=== PATIENT | male | born 1940 | race Caucasian/White ===

== ENCOUNTER 2017-12-23 18:03 | Inpatient (IN) | payer MEDICARE ==
[~2017-12-23 18:03] MED LIST: ETOMIDATE 20 MG/10 ML VIAL IV ONE
[2017-12-23] MEDS ORDERED: ALBUTEROL 2.5 MG/3 ML NEB SOL ONE (18:30)
[2017-12-23] MEDS ORDERED: IPRATROPIUM BROM 0.5MG/2.5ML ONE (18:30)
[2017-12-23 18:40] LABS: Arterial Blood Carboxyhemoglob 0.7 % (0-1.5); Blood Gas Oxyhemoglobin 97.2 % (94-97); Blood O2 Saturation 98.9 % (92-98.5)
[2017-12-23] MEDS ORDERED: NA CHLORIDE 0.9% 1,000 ML ONE ×2 (18:43→19:21)
[2017-12-23] MEDS ORDERED: Levofloxacin 750mg IV 750 MG/150 ML BAG IV ONE (18:43)
[2017-12-23 18:48] LABS: Absolute Lymphocytes (CBC) 2.2 K/uL (0.7-4.9); Absolute Monocytes 0.9 K/uL (0.1-1.3); Basophils % 0.6 % (0-1.3); Eosinophils % 7.4 % (0-4.4); Hematocrit 48.3 % (39.6-49.0); Lymphocytes % 15.4 % (15.3-44.8); MCH 30.2 pg (27.0-35.0); MCV 90.8 fL (80-100); Monocytes % 6.1 % (3.3-12.3); RBC Red Blood Cell Count 5.32 M/uL (4.33-5.43)
[2017-12-23 18:59] LABS: Albumin 3.6 g/dL (3.4-5.0); Bilirubin Direct 0.2 mg/dL (0-0.2); Bilirubin Total 0.9 mg/dL (0.2-1.0); Potassium 4.3 mmol/L (3.5-5.1); Protein, Total 6.8 g/dL (6.4-8.2)
--- NOTE | 2017-12-23 19:07 | ER ---
Nurse's Notes [facility] Name: Raphael Gilbert Age: 77 yrs Sex: Male : 1940 Arrival Date: 12/23/2017 Time: 18:08 Bed 4 Private MD: Diagnosis: Acute and chronic respiratory failure with hypercapnia;Chronic obstructive pulmonary disease with (acute) exacerbation Presentation: 12/23 18:12 Presenting complaint: EMS states: Pt was brought in with difficulty breathing was found jb4 taking albuterol nebulizer treatment. Transition of care: patient was not received from another setting of care. Onset of symptoms was December 23, 2017. Risk Assessment: Do you want to hurt yourself or someone else? Patient reports no desire to harm self or others. Initial Sepsis Screen: Does the patient meet any 2 criteria? RR > 20 per min. HR > 90 bpm. Yes Does the patient have a suspected source of infection? No. Patient's initial sepsis screen is negative. Care prior to arrival: Oxygen administered via non-rebreather \T\ 15ml/min. 18:12 Method Of Arrival: EMS: [facility] jb4 18:12 Acuity: MEGHAN 2 jb4 Triage Assessment: 18:18 General: Appears distressed, uncomfortable, Behavior is calm, cooperative. Pain: Denies jb4 pain. Historical: - Allergies: 18:18 Dilaudid; jb4 - Home Meds: 18:18 Albuterol Inhl [Active]; Atrovent Inhl [Active]; citriziine [Active]; jb4 fluticasone-salmeterol inhalation [Active]; pantoprazole 20 mg Oral TbEC [Active]; Symbicort 160-4.5 mcg/actuation inhalation HFAA [Active]; tamsulosin 0.4 mg Oral cp24 [Active]; - PMHx: 18:18 COPD; Pulmonary Embolism; jb4 - PSHx: 18:18 Appendectomy; blood clot removed from lung; jb4 - Immunization history:: Adult Immunizations unknown. - Social history:: Smoking status: unknown. - Ebola Screening: : No symptoms or risks identified at this time. Screenin:20 Abuse screen: Denies threats or abuse. Nutritional screening: No deficits noted. jb4 Tuberculosis screening: No symptoms or risk factors identified. Fall Risk Secondary diagnosis (15 points) COPD, Emphysema . IV access (20 points). Total Lira Fall Scale indicates Low Risk Score (25-44 pts). Fall prevention measures have been instituted. Side Rails Up X 2 Placed close to Nursing Station Frequent Obs/Assesments occuring. Assessment: 18:12 General: Appears distressed, uncomfortable, Behavior is calm, cooperative, appropriate jb4 for age. 18:12 Pain: Denies pain. Neuro: Level of Consciousness is awake, alert, obeys commands, jb4 Oriented to person, place, time, situation. Cardiovascular: Heart tones S1 S2 present Patient's skin is warm and dry. Respiratory: Airway is patent Respiratory effort is even, labored, Respiratory pattern is symmetrical, tachypnea Breath sounds with wheezes bilaterally. GI: Abdomen is flat, Bowel sounds present X 4 quads. Abd is soft and non tender X 4 quads. : No signs and/or symptoms were reported regarding the genitourinary system. EENT: No signs and/or symptoms were reported regarding the EENT system. Derm: Skin is intact, Skin is pink, warm \T\ dry. Musculoskeletal: No signs and/or symptoms reported regarding the musculoskeletal system. 18:55 Reassessment: No changes from previously documented assessment. jb4 19:09 General: Appears in no apparent distress. uncomfortable, Behavior is calm, cooperative, tl2 appropriate for age. Pain: Denies pain. Neuro: Level of Consciousness is awake, alert, obeys commands, Oriented to person, place, time, situation. Cardiovascular: Denies chest pain. Respiratory: Airway is patent Respiratory effort is even, labored, Respiratory pattern is symmetrical, tachypnea Pt placed on BiPAP, pt states it is helping and he is tolerating it well Breath sounds with wheezes bilaterally. GI: No signs and/or symptoms were reported involving the gastrointestinal system. : No signs and/or symptoms were reported regarding the genitourinary system. Derm: Skin is pink, warm \T\ dry. 19:55 Reassessment: Unknown family member came out of room and stated that pt was having tl2 trouble breathing. LEE Lomax at bedside. Pt in distress, labored breathing, face noted to be a purple color. Respiratory pageLEE wood ordered to prepare for intubation. 20:45 Reassessment: Accompanied pt to CT with Olivia, RT. tl2 21:00 Reassessment: Pt's vitals and color have improved, ordered to start on 5mcg/min of tl2 Propofol. 21:45 Reassessment: LEE Lomax approved for pt to go to ICU, Pt stable for transport. tl2 Vital Signs: 18:20 BP 150 / 103; Pulse 138; Resp 21; Temp 98.5; Pulse Ox 98% on BiPAP; jb4 18:30 Weight 63.5 kg (R); Height 5 ft. 11 in. (180.34 cm) (R); jl7 19:13 BP 140 / 103; Pulse 120; Resp 20; Pulse Ox 100% on BiPAP; tl2 20:00 BP 175 / 112; Pulse 136; Resp 17; Pulse Ox 99% on BiPAP; tl2 20:05 BP 132 / 84; Pulse 120; Resp 12 A; Pulse Ox 100% on 100% FiO2 ETT vent; tl2 20:15 BP 110 / 70; Pulse 115; Resp 12; Pulse Ox 100% on ETT vent; tl2 20:25 BP 152 / 89; Pulse 108; Resp 12; Pulse Ox 100% on ETT vent; tl2 20:55 BP 143 / 79; Pulse 106; Resp 16; Pulse Ox 97% on ETT vent; tl2 21:10 BP 137 / 87; Pulse 103; Resp 14; Pulse Ox 98% on ETT vent; tl2 21:18 BP 147 / 87; Pulse 103; Resp 16; Pulse Ox 40% FiO2 ETT vent; tl2 21:30 BP 136 / 85; Pulse 101; Resp 16; Pulse Ox 98% on ETT vent; tl2 18:30 Body Mass Index 19.53 (63.50 kg, 180.34 cm) jl7 Vitals: 19:09 Cardiac Rhythm Assessment Sinus rhythm. tl2 ED Course: 18:08 Patient arrived in ED. iw 18:09 Dami Frausto PA is PHCP. jr8 18:09 Felix Zayas MD is Attending Physician. jr8 18:10 Initial lab(s) drawn, by ED staff, sent to lab. Inserted saline lock: 18 gauge in right jl7 antecubital area, using aseptic technique. ,using aseptic technique. Inserted by LEE Bradley Blood collected. 18:10 Inserted saline lock: 18 gauge in left antecubital area, using aseptic technique. jl7 ,using aseptic technique. Inserted by LEE Bradley. 18:12 Sid Strickland RN is Primary Nurse. jb4 18:16 Triage completed. jb4 18:20 Patient has correct armband on for positive identification. Placed in gown. Bed in low jb4 position. Call light in reach. Side rails up X 1. house painting instructor on. Pulse ox on. NIBP on. 18:31 Arm band placed on right wrist. jl7 18:48 Chest Single View XRAY In Process Unspecified. EDMS 19:05 Scarlet Wesley MD is Hospitalizing Provider. jr8 19:07 Report given to LAURI Spencer. jb4 20:04 Assisted provider with intubation using 7.5 mm ETT via oral route. ET tube secured at tl2 23cm at the teeth. Set up intubation tray. Intubated by Dami HOWARD Placement verified by CXR, CO2 detector w/ + color change, auscultating bilateral breath sounds. 20:30 NGT: inserted 14 Fr. other Oral verified placement of air over stomach, CT to tl2 intermittent suction. 20:58 CT completed. Patient moved to CT via stretcher. Patient moved back from CT. cw1 21:30 To cath inserted, using sterile technique, 16 Fr., by pa, balloon inflated, to tl2 gravity drainage, urine specimen collected. returned clear yellow urine. Patient tolerated well. 22:20 Patient admitted, IV remains in place. tl2 Administered Medications: 18:15 Drug: Albuterol - atroVENT (3:1) (2.5 mg - 0.5 mg) 3 ml Route: Nebulizer; jl7 18:50 Follow up: Response: No adverse reaction jb4 18:45 Drug: LevaQUIN 750 mg Volume: 150 ml; Route: IVPB; Infused Over: 90 mins; Site: left jb4 antecubital; 19:00 Follow up: IV Status: Completed infusion tl2 20:00 Follow up: IV Status: Completed infusion tl2 19:24 Drug: NS 0.9% (30 ml/kg) 30 ml/kg Route: IV; Rate: bolus; Site: left antecubital; jb4 21:30 Follow up: IV Status: Completed infusion; IV Intake: 3000ml tl2 19:33 Drug: Lovenox 1 mg/kg Route: Sub-Q; Site: right lower abdomen; tl2 22:23 Follow up: Response: No adverse reaction tl2 19:33 Drug: SOLU-Medrol 125 mg Route: IVP; Site: left antecubital; tl2 19:50 Follow up: Response: No adverse reaction; No change in condition tl2 20:00 Drug: Ketamine 200 mg Route: IVP; Site: right antecubital; tl2 20:05 Follow up: Response: No adverse reaction; Patient is sedated tl2 20:02 Drug: Etomidate 20 mg Route: IVP; Site: right antecubital; tl2 20:05 Follow up: Response: No adverse reaction; Patient is sedated tl2 20:02 Drug: Rocuronium 100 mg Route: IVP; Site: right antecubital; tl2 20:05 Follow up: Response: No adverse reaction; Patient is sedated tl2 20:10 Drug: Magnesium Sulfate 4 grams Route: IVPB; Infused Over: 15 mins; Site: left tl2 antecubital; 20:30 Follow up: IV Status: Completed infusion tl2 21:06 Drug: Propofol 5 mcg/kg/min Route: IV; Rate: calculated rate; Site: right antecubital; tl2 22:21 Follow up: IV Status: Infusion continued upon admission tl2 Intake: 21:30 IV: 3000ml; Total: 3000ml. tl2 Outcome: 19:06 Decision to Hospitalize by Provider. jr8 22:19 Admitted to ICU accompanied by nurse, accompanied by tech, via stretcher, room 3, with tl2 oxygen, on monitor, with chart, Report called to LAURI Segovia 22:19 critical 22:19 Discharge instructions given to patient, Instructed on the need for admit. 22:25 Patient left the ED. tl2 Signatures: Dispatcher [employer] EDMS Gogo Kan RN RN iw Woodley, Crystal cw1 Dami Farusto PA PA jr8 Johanna Avalos RN RN tl2 Sid Strickland RN RN jb4 Ty Gresham RN RN jl7 Corrections: (The following items were deleted from the chart) 19:05 18:20 BP 150 / 103; Pulse 138bpm; Resp 21bpm; Pulse Ox 98% BiPAP; jbJefe jb4 19:14 18:12 Initial Sepsis Screen: Does the patient meet any 2 criteria? RR > 20 per min. HR jb4 > 90 bpm. Yes Does the patient have a suspected source of infection? No. Patient's initial sepsis screen is negative. jb4 19:14 19:09 BP 111 / 85; Pulse 90bpm; Resp 19bpm; Pulse Ox 97% RA; tl2 tl2 19:17 19:13 BP 170 / 89; Pulse 97bpm; Resp 22bpm; Pulse Ox 100% Nebulizer Mask; tl2 tl2 22:16 20:30 To cath inserted, using sterile technique, 16 Fr., returned clear yellow tl2 urine. Patient tolerated well. NGT: inserted 14 Fr. other orally verified placement of air over stomach, CT to intermittent suction. tl2
--- NOTE | 2017-12-23 19:07 | EDPHYS ---
Physician Documentation [facility] Name: Raphael Gilbert Age: 77 yrs Sex: Male : 1940 Arrival Date: 12/23/2017 Time: 18:08 Bed 4 Private MD: ED Physician Felix Zayas HPI: 12/23 18:48 This 77 yrs old Male presents to ER via EMS with complaints of Breathing jr8 Difficulty. 18:48 The patient has shortness of breath at rest. Onset: The symptoms/episode began/occurred jr8 acutely, today. Duration: The symptoms are continuous. The patient's shortness of breath is aggravated by talking, walking. Associated signs and symptoms: Pertinent positives: non-productive cough. Severity of symptoms: At their worst the symptoms were moderate in the emergency department the symptoms are unchanged. It is unknown whether or not the patient has had similar symptoms in the past. It is unknown whether or not the patient has recently seen a physician. Historical: - Allergies: 18:18 Dilaudid; jb4 - Home Meds: 18:18 Albuterol Inhl [Active]; Atrovent Inhl [Active]; citriziine [Active]; jb4 fluticasone-salmeterol inhalation [Active]; pantoprazole 20 mg Oral TbEC [Active]; Symbicort 160-4.5 mcg/actuation inhalation HFAA [Active]; tamsulosin 0.4 mg Oral cp24 [Active]; - PMHx: 18:18 COPD; Pulmonary Embolism; jb4 - PSHx: 18:18 Appendectomy; blood clot removed from lung; jb4 - Immunization history:: Adult Immunizations unknown. - Social history:: Smoking status: unknown. - Ebola Screening: : No symptoms or risks identified at this time. ROS: 18:48 Eyes: Negative for injury, pain, redness, and discharge, ENT: Negative for injury, jr8 pain, and discharge, Neck: Negative for injury, pain, and swelling, Cardiovascular: Negative for chest pain, palpitations, and edema, Abdomen/GI: Negative for abdominal pain, nausea, vomiting, diarrhea, and constipation, Back: Negative for injury and pain, MS/Extremity: Negative for injury and deformity, Skin: Negative for injury, rash, and discoloration, Neuro: Negative for headache, weakness, numbness, tingling, and seizure. 18:48 Respiratory: Positive for cough, dyspnea on exertion, shortness of breath, wheezing. Exam: 18:48 Eyes: Pupils equal round and reactive to light, extra-ocular motions intact. Lids and jr8 lashes normal. Conjunctiva and sclera are non-icteric and not injected. Cornea within normal limits. Periorbital areas with no swelling, redness, or edema. ENT: Nares patent. No nasal discharge, no septal abnormalities noted. Tympanic membranes are normal and external auditory canals are clear. Oropharynx with no redness, swelling, or masses, exudates, or evidence of obstruction, uvula midline. Mucous membranes moist. Neck: Trachea midline, no thyromegaly or masses palpated, and no cervical lymphadenopathy. Supple, full range of motion without nuchal rigidity, or vertebral point tenderness. No Meningismus. Abdomen/GI: Soft, non-tender, with normal bowel sounds. No distension or tympany. No guarding or rebound. No evidence of tenderness throughout. Back: No spinal tenderness. No costovertebral tenderness. Full range of motion. Skin: Warm, dry with normal turgor. Normal color with no rashes, no lesions, and no evidence of cellulitis. MS/ Extremity: Pulses equal, no cyanosis. Neurovascular intact. Full, normal range of motion. Neuro: Awake and alert, GCS 15, oriented to person, place, time, and situation. Cranial nerves II-XII grossly intact. Motor strength 5/5 in all extremities. Sensory grossly intact. Cerebellar exam normal. Normal gait. 18:48 Cardiovascular: Rate: tachycardic, Rhythm: regular, Pulses: Pulses are 2+ in right radial artery and left radial artery. Heart sounds: normal, normal S1and S2, no S3 or S4, no murmur, no rub, no gallop, Edema: is not appreciated. 18:48 Respiratory: moderate respiratory distress is noted, Respirations: labored breathing, intercostal retractions, tachypnea, Breath sounds: decreased breath sounds, that are mild, are located in both bases, wheezing: expiratory that is moderate, is heard diffusely. Vital Signs: 18:20 BP 150 / 103; Pulse 138; Resp 21; Temp 98.5; Pulse Ox 98% on BiPAP; jb4 18:30 Weight 63.5 kg (R); Height 5 ft. 11 in. (180.34 cm) (R); jl7 19:13 BP 140 / 103; Pulse 120; Resp 20; Pulse Ox 100% on BiPAP; tl2 20:00 BP 175 / 112; Pulse 136; Resp 17; Pulse Ox 99% on BiPAP; tl2 20:05 BP 132 / 84; Pulse 120; Resp 12 A; Pulse Ox 100% on 100% FiO2 ETT vent; tl2 20:15 BP 110 / 70; Pulse 115; Resp 12; Pulse Ox 100% on ETT vent; tl2 20:25 BP 152 / 89; Pulse 108; Resp 12; Pulse Ox 100% on ETT vent; tl2 20:55 BP 143 / 79; Pulse 106; Resp 16; Pulse Ox 97% on ETT vent; tl2 21:10 BP 137 / 87; Pulse 103; Resp 14; Pulse Ox 98% on ETT vent; tl2 21:18 BP 147 / 87; Pulse 103; Resp 16; Pulse Ox 40% FiO2 ETT vent; tl2 21:30 BP 136 / 85; Pulse 101; Resp 16; Pulse Ox 98% on ETT vent; tl2 18:30 Body Mass Index 19.53 (63.50 kg, 180.34 cm) jl7 MDM: 18:09 Patient medically screened. jr8 19:05 Data reviewed: vital signs, nurses notes, lab test result(s), EKG, radiologic studies, jr8 plain films, and as a result, I will admit patient. Data interpreted: Pulse oximetry: on room air is 79 %. Interpretation: hypoxia. Counseling: I had a detailed discussion with the patient and/or guardian regarding: the historical points, exam findings, and any diagnostic results supporting the discharge/admit diagnosis, lab results, radiology results, the need for further work-up and treatment in the hospital. Response to treatment: the patient's symptoms have markedly improved after treatment. 20:10 ED course: Patient became acutely dyspneic again. Patient was intubated at that time jr8 successfully. Will be going to CT for PE protocol . 20:46 ED course: Advised Dr. Wesley of status change . jr8 12/23 18:10 Order name: ABG; Complete Time: 18:48 jr8 12/23 18:10 Order name: Basic Metabolic Panel; Complete Time: 19:04 jr8 12/23 18:10 Order name: Blood Culture Adult (2) [facility] 12/23 18:10 Order name: CBC with Diff; Complete Time: 18:51 [facility] 12/23 18:10 Order name: Lactate; Complete Time: 19:04 [facility] 12/23 18:10 Order name: LFT's; Complete Time: 19:04 [facility] 12/23 18:10 Order name: Procalcitonin; Complete Time: 19:40 [facility] 12/23 18:10 Order name: Protime (+inr); Complete Time: 19:11 [facility] 12/23 18:10 Order name: Troponin (emerg Dept Use Only); Complete Time: 19:04 [facility] 12/23 18:10 Order name: Chest Single View XRAY; Complete Time: 19:44 [facility] 12/23 18:10 Order name: BIPAP [facility] 12/23 20:22 Order name: ABG [facility] 12/23 21:08 Order name: ABG Arterial Blood Gas; Complete Time: 21:18 [facility] 12/23 22:10 Order name: Urine Dipstick--Ancillary (enter results) [place] 12/23 18:10 Order name: Accucheck; Complete Time: 19:03 [facility] 12/23 18:10 Order name: Cardiac monitoring; Complete Time: 18:57 [facility] 12/23 20:07 Order name: Chest Single View XRAY [place] 12/23 20:08 Order name: CT Chest For PE Angio [facility] 12/23 20:47 Order name: RAD; Complete Time: 20:48 EDMD 12/23 21:17 Order name: CT; Complete Time: 21:18 [facility] 12/23 18:10 Order name: EKG - Nurse/Tech; Complete Time: 18:57 [facility] 12/23 18:10 Order name: IV Saline Lock - Large Bore; Complete Time: 18:57 [facility] 12/23 18:10 Order name: Labs collected and sent; Complete Time: 18:58 [facility] 12/23 18:10 Order name: O2 Per Protocol; Complete Time: 18:58 [facility] 12/23 18:10 Order name: O2 Sat Monitoring; Complete Time: 18:57 [facility] 12/23 18:10 Order name: Urine Dipstick-Ancillary (obtain specimen); Complete Time: 21:30 [facility] Administered Medications: 18:15 Drug: Albuterol - atroVENT (3:1) (2.5 mg - 0.5 mg) 3 ml Route: Nebulizer; jl7 18:50 Follow up: Response: No adverse reaction jb4 18:45 Drug: LevaQUIN 750 mg Volume: 150 ml; Route: IVPB; Infused Over: 90 mins; Site: left jb4 antecubital; 19:00 Follow up: IV Status: Completed infusion tl2 20:00 Follow up: IV Status: Completed infusion tl2 19:24 Drug: NS 0.9% (30 ml/kg) 30 ml/kg Route: IV; Rate: bolus; Site: left antecubital; jb4 21:30 Follow up: IV Status: Completed infusion; IV Intake: 3000ml tl2 19:33 Drug: Lovenox 1 mg/kg Route: Sub-Q; Site: right lower abdomen; tl2 22:23 Follow up: Response: No adverse reaction tl2 19:33 Drug: SOLU-Medrol 125 mg Route: IVP; Site: left antecubital; tl2 19:50 Follow up: Response: No adverse reaction; No change in condition tl2 20:00 Drug: Ketamine 200 mg Route: IVP; Site: right antecubital; tl2 20:05 Follow up: Response: No adverse reaction; Patient is sedated tl2 20:02 Drug: Etomidate 20 mg Route: IVP; Site: right antecubital; tl2 20:05 Follow up: Response: No adverse reaction; Patient is sedated tl2 20:02 Drug: Rocuronium 100 mg Route: IVP; Site: right antecubital; tl2 20:05 Follow up: Response: No adverse reaction; Patient is sedated tl2 20:10 Drug: Magnesium Sulfate 4 grams Route: IVPB; Infused Over: 15 mins; Site: left tl2 antecubital; 20:30 Follow up: IV Status: Completed infusion tl2 21:06 Drug: Propofol 5 mcg/kg/min Route: IV; Rate: calculated rate; Site: right antecubital; tl2 22:21 Follow up: IV Status: Infusion continued upon admission tl2 Disposition: 20:47 Critical Care:. jr8 12/24 09:22 Co-signature as Attending Physician, Felix Zayas MD I agree with the assessment and kristofer plan of care. Disposition: 12/23/17 19:06 Hospitalization ordered by Scarlet Wesley for Inpatient Admission. Preliminary diagnosis are Acute and chronic respiratory failure with hypercapnia, Chronic obstructive pulmonary disease with (acute) exacerbation. - Bed requested for Intensive Care Unit. - Status is Inpatient Admission. tl2 - Condition is Fair. - Problem is new. - Symptoms have improved. UTI on Admission? No Critical care time excluding procedures: 12/23 20:47 Critical care time: Bedside Care: 30 minutes, Consultation: 15 minutes, Family jr8 Intervention: 10 minutes. Total time: 55 minutes Addendum: 12/26/2017 06:52 Addendum: Patient was intubated with 7.5 ET tube successfully on first attempt. Glyde j r8 Scope utilized. Tube secure with device at 23 cm at the lip. Equal breath sounds bilaterally post intubation with color change on capnography. X-ray shows proper tube placement . Signatures: Dispatcher [employer] EDFelix Mauro MD MD cha Roszak, Josh, PA PA jr8 Mary Beth Hinojosa RN RN cg Johanna Avalos RN RN tl2 Sid Strickland RN RN jb4 Ty Gresham RN RN jl7 Corrections: (The following items were deleted from the chart) 12/23 20:08 19:06 Hospitalization Ordered by Scarlet Wesley MD for Inpatient Admission. Preliminary jr8 diagnosis is Acute and chronic respiratory failure with hypercapnia; Chronic obstructive pulmonary disease with (acute) exacerbation. Bed requested for Telemetry/MedSurg (Inpatient). Status is Inpatient Admission. Condition is Fair. Problem is new. Symptoms have improved. UTI on Admission? No. jr8 20:28 20:08 12/23/2017 19:06 Hospitalization Ordered by Scarlet Wesley MD for Inpatient cg Admission. Preliminary diagnosis is Acute and chronic respiratory failure with hypercapnia; Chronic obstructive pulmonary disease with (acute) exacerbation. Bed requested for Intensive Care Unit. Status is Inpatient Admission. Condition is Fair. Problem is new. Symptoms have improved. UTI on Admission? No. jr8 22:25 20:28 12/23/2017 19:06 Hospitalization Ordered by Scarlet Wesley MD for Inpatient tl2 Admission. Preliminary diagnosis is Acute and chronic respiratory failure with hypercapnia; Chronic obstructive pulmonary disease with (acute) exacerbation. Bed requested for Intensive Care Unit. Status is Inpatient Admission. Condition is Fair. Problem is new. Symptoms have improved. UTI on Admission? No. cg
[2017-12-23 19:10] LABS: Protime INR 1.1
[2017-12-23] MEDS ORDERED: METHYLPREDNISOLONE 125 MG INJ ONE (19:34)
[2017-12-23] MEDS ORDERED: ENOXAPARIN 60 MG/0.6 ML SQ ONE (19:34)
--- NOTE | 2017-12-23 19:41 | RAD REPORT ---
EXAM DESCRIPTION: RAD - Chest Single View - 12/23/2017 6:49 pm CLINICAL HISTORY: Cough, dyspnea COMPARISON: July 2017 TECHNIQUE: AP portable chest image was obtained 1827 hours . FINDINGS: Fibrotic lung changes are present throughout the lung deng. Prominent bullous emphysema changes in the bilateral upper lung deng. Apical scarring changes are present. There is costophreni c angle blunting present left greater than right. Heart size is normal. Pulmonary arteries are enlarg ed. No pneumothorax or large pleural effusion. No gross bony abnormality seen. No acute aortic findin gs suspected. IMPRESSION: Severe COPD not clearly different from comparison. Severity of disease could easily mask a superimposed infiltrate.
[2017-12-23] MEDS ORDERED: LEVALBUTEROL 1.25 MG/3 ML NEB ONE (19:52)
[2017-12-23] MEDS ORDERED: PROPOFOL 1,000 MG/100 ML VIAL IV ONE (19:57)
[2017-12-23] MEDS ORDERED: ACETAMINOPHEN 500 MG TAB PO PRN (19:58)
[2017-12-23] MEDS ORDERED: ONDANSETRON 4 MG/2 ML VIAL IV PRN (19:58)
[2017-12-23] MEDS ORDERED: ALPRAZOLAM 0.25 MG TABLET PO PRN (19:58)
[2017-12-23] MEDS ORDERED: ROCURONIUM 50 MG/5 ML VIAL IV ONE ×2 (20:00→20:03)
[2017-12-23] MEDS ORDERED: KETAMINE HCL 500 MG/5 ML VIAL ONE (20:01)
[2017-12-23] MEDS ORDERED: ETOMIDATE 20 MG/10 ML VIAL IV ONE (20:03)
[2017-12-23] MEDS ORDERED: Magnesium Sulfate 2gm IVPB 4 G/100 ML BAG IV ONE (20:10)
[2017-12-23] MEDS ORDERED: PROPOFOL 1,000 MG/100 ML VIAL IV PRN (20:12)
[2017-12-23] MEDS ORDERED: LORazepam 2 MG/ML VIAL ONE (20:19)
[2017-12-23] MEDS ORDERED: FENTANYL CITR 100 MCG/2 ML ONE (20:19)
[2017-12-23 20:31] LABS: Arterial Blood Carboxyhemoglob 0.3 % (0-1.5); Blood Gas Oxyhemoglobin 97.7 % (94-97)
--- NOTE | 2017-12-23 20:46 | RAD REPORT ---
EXAM DESCRIPTION: RAD - Chest Single View - 12/23/2017 8:31 pm CLINICAL HISTORY: Respiratory distress, intubation COMPARISON: December 23 TECHNIQUE: AP portable chest image was obtained 2007 hour . FINDINGS: Endotracheal tube has been placed. Tip is T4 level top of the aortic arch. Extensive COPD changes are again noted. Lung parenchyma has not changed over the short interval. Hear t and vasculature are normal. No measurable pleural effusion and no pneumothorax. No gross bony abnor mality seen. No acute aortic findings suspected. IMPRESSION: Endotracheal tube in good position. Severe COPD.
[2017-12-23] MEDS ORDERED: CEFTRIAXONE 1 GM/NS 50 ML 1 GM/50 ML BAG IV SCH (21:00)
--- NOTE | 2017-12-23 21:17 | RAD REPORT ---
EXAM DESCRIPTION: CT - Chest For Pe Angio - 12/23/2017 8:58 pm CLINICAL HISTORY: Dyspnea, COPD, intubation COMPARISON: CT August 2016, chest films same date, CT July 2017 TECHNIQUE: Dynamically enhanced 3 mm thick images of the chest were obtained during administration o f approximately 150mL Isovue 370 IV contrast. Coronal and oblique MIP reconstruction images were gene rated and reviewed. Exam utilizes a protocol to evaluate the pulmonary arterial tree. All CT scans are performed using dose optimization technique as appropriate and may include automated exposure control or mA/KV adjustment according to patient size. FINDINGS: No pulmonary emboli are identified. The aorta as imaged shows no acute or suspicious finding. No pericardial thickening or effusion. No peripheral mass or consolidation. Patient has irregular scarring in the right apex that is not dariel walter changed. Severe COPD changes are present. 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 Lung parenchyma is not substantially different from comparison. No pleural effusion or pleur al thickening. No mediastinal or hilar suspicious masses. No chest wall masses or abnormal axillary lymphadenopathy. Endotracheal tube is in good position. NG tube extends into the stomach. Bronchial wall thickening is seen. There are areas of bronchial opacification in both lower lung fiel ds. No significant or measurable bronchiectasis. IMPRESSION: No pulmonary emboli identified. Lower lobe bronchial wall thickening and opacification of the bronchi a likely bronchitis/ viral infi ltrate process. Severe COPD similar to comparison.
[2017-12-23] MEDS: IPRATROPIUM BROM 0.5MG/2.5ML NEB SCH (22:01)
[2017-12-23] MEDS: ALBUTEROL 2.5 MG/3 ML NEB SOL NEB SCH (22:01)
[2017-12-23] MEDS: NA CHLORIDE 0.9% 1,000 ML IV SCH (22:14)
[2017-12-23] MEDS ORDERED: CEFTRIAXONE/SWI 1gm 1 GM/10 ML SYR ONE (22:24)
[2017-12-23] MEDS ORDERED: AZITHROMYCIN IV 500 MG in NA CHLORIDE 0.9% 250 ML IVPB SCH (23:00)
[2017-12-23 23:21] LABS: Urine Appearance CLEAR; Urine Bilirubin NEGATIVE (NEG); Urine Blood 1+ (NEG); Urine Color YELLOW; Urine Glucose NEGATIVE (NEG); Urine Protein NEGATIVE (NEG); Urine Urobilinogen 0.2 mg/dL (0.2-1.0); Urine pH 5.5 (5.0-7.0)
[2017-12-23 23:23] LABS: Urine Microscopic Reflex ORDER UMIC
[2017-12-23 23:32] LABS: Urine Bacteria <20 /HPF (NONE SEEN); Urine Culture Reflex Order NOT NEEDED
[2017-12-23 23:33] LABS: Urine Blood 1+ (NEG); Urine Glucose NEGATIVE (NEG); Urine Protein NEGATIVE (NEG); Urine pH 5.5 (5.0-7.0)
[2017-12-24] MEDS: METHYLPREDNISOLONE 125 MG INJ IV SCH ×2 (00:06→05:41)
[2017-12-24] MEDS ORDERED: AZITHROMYCIN 500 MG/250 ML BAG ONE (00:57)
[2017-12-24] MEDS: ALBUTEROL 2.5 MG/3 ML NEB SOL NEB SCH ×4 (01:39→20:24)
[2017-12-24] MEDS: IPRATROPIUM BROM 0.5MG/2.5ML NEB SCH ×4 (01:39→20:24)
[2017-12-24 05:29] LABS: Absolute Lymphocytes (CBC) 0.5 K/uL (0.7-4.9); Absolute Monocytes 0.1 K/uL (0.1-1.3); Absolute Neutrophil 13.4 K/uL (1.8-8.0); Basophils % 0.2 % (0-1.3); Eosinophils % 0.1 % (0-4.4); Hematocrit 42.5 % (39.6-49.0); Lymphocytes % 3.5 % (15.3-44.8); MCH 30.4 pg (27.0-35.0); MPV 8.9 fL (7.6-11.3); Monocytes % 0.6 % (3.3-12.3); RBC Red Blood Cell Count 4.72 M/uL (4.33-5.43)
[2017-12-24 05:32] LABS: Blood Gas Oxyhemoglobin 96.7 % (94-97); Blood O2 Saturation 98.4 % (92-98.5)
[2017-12-24 05:46] LABS: Bilirubin Total 0.6 mg/dL (0.2-1.0); Magnesium 2.4 mg/dL (1.8-2.4); Phosphorus 2.6 mg/dL (2.5-4.9); Potassium 4.8 mmol/L (3.5-5.1); Protein, Total 5.9 g/dL (6.4-8.2)
[2017-12-24] MEDS ORDERED: clonazePAM 0.5 MG TAB PO PRN (06:08)
[2017-12-24 06:16] LABS: Blood Morphology Comment NOTED (NOT SEEN); Burr Cells 1+; Ovalocytes 2+; Platelet Estimate ADEQ
--- NOTE | 2017-12-24 07:50 | EKG ---
Test Date: 2017-12-23 Test Time: 18:14:55 Photographer Lithographic: SUSAN MEASUREMENT RESULTS: Intervals: Rate: 140 NM: 124 QRSD: 88 QT: 286 QTc: 436 [place]coe: P: 85 NM: 124 QRS: 37 T: 62 INTERPRETIVE STATEMENTS: Sinus tachycardia Otherwise normal ECG Compared to ECG 07/17/2017 18:32:20 Sinus rhythm no longer present Atrial premature complex(es) no longer present Electronically Signed On 12-24-17 07:49:54 CDT by Jamil Will
[2017-12-24] MEDS ORDERED: FENTANYL CITR 100 MCG/2 ML IV PRN (07:56)
[2017-12-24] MEDS ORDERED: LORazepam 2 MG/ML VIAL IV PRN (07:56)
[2017-12-24] MEDS ORDERED: MIDAZOLAM HCL 2 MG/2 ML INJ IV PRN (07:56)
[2017-12-24] MEDS ORDERED: HALOPERIDOL LACT 5 MG/ML INJ IV PRN (07:56)
--- NOTE | 2017-12-24 08:18 | P.HP ---
Certification for Inpatient Patient admitted to: Inpatient With expected LOS: >2 Midnights Patient will require the following post-hospital care: None Practitioner: I am a practitioner with admitting privileges, knowledge of patient current condition, hospital course, and medical plan of care. Services: Services provided to patient in accordance with Admission requirements found in Title 42 Section 412.3 of the Code of Federal Regulations Patient History Date of Service: 12/23/17 Reason for admission: Respiratory failure History of Present Illness: Patient is a 77-year-old gentleman who came into the hospital with difficulty breathing. Patient was seen in the emergency room and started on treatment for a COPD exacerbation. Patient was given nebs, steroids, and antibiotics. Patient was not improving so he was placed on BiPA P. After being placed on BiPAP his current addition worsened and he became more hypercapnic. At that time it was decided the patient needed to be intubated. Patient was placed on mechanical ventilation and we started him on propofol. Patient will be admitted to the intensive care unit will consult Pulmonary in the morning. Clinically, patient is improving. 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 There is also a concern of pulmonary embolism for which we did a CT of the chest which did not reveal a pulmonary emboli. Patient will be managed on the mechanical ventilator and we will go ahead and wean him off over the next 24-48 hours. Continue on nebs, steroids, and antibiotics. Allergies hydromorphone HCl [From Dilaudid] Adverse Reaction (Severe, Verified 06/17/17 21 :47) Itching Home Medications: Acetaminophen with Codeine [Acetaminophen-Cod #3 Tablet] 1 each PO Q8HP PRN Albuterol Sulfate [Proair Hfa] 2 puff IH Q6HP PRN 12/23/17 Cefadroxil Hydrate [Duricef] 500 mg PO BID 12/23/17 Diphenhydramine [Benadryl Tab/Cap] 25 mg PO BEDTIME PRN PRN 12/23/17 Doxycycline Hyclate 100 mg PO Q12H 12/23/17 Fluticasone [Flonase 50mcg Nasal [place]] 1 sprays NS BID 12/23/17 Ipratropium/Albuterol Sulfate [Iprat-Albut 0.5-3(2.5) mg/3 ml] 3 ml IH QID 12/23 Levocetirizine Dihydrochloride [24Hr Allergy Relief] 5 mg PO BEDTIME 12/23/17 Montelukast [Singulair] 10 mg PO DAILY 12/23/17 Pantoprazole [Protonix Tab] 40 mg PO DAILY 12/23/17 Q-Tussin Dm 10-100mg/5ml 5 ml PO Q6HP PRN 12/23/17 Tamsulosin [Flomax] 0.4 mg PO BID 12/23/17 Vardenafil HCl [Levitra] 20 mg PO DAILYPRN PRN 12/23/17 clonazePAM [Clonazepam] 0.5 mg PO BIDP PRN 12/23/17 - Past Medical/Surgical History Diabetic: No -: Allergic rhinitis -: COPD -: PE -: gerd -: prostate problems -: Rib surgery -: appendectomy -: blood clot removed from lung - Family History Father Medical History: GI disease Mother Medical History: Heart disease Sister Medical History: Heart disease - Social History Smoking Status: Unknown if ever smoked Alcohol use: No CD- Drugs: No Caffeine use: Yes Place of Residence: Home Review of Systems 10-point ROS is otherwise unremarkable Physical Examination - Vital Signs Temperature: 98.5 F Blood Pressure: 98/64 Pulse: 96 Respirations: 16 Pulse Ox (%): 93 - Physical Exam General: Alert, In no apparent distress, Oriented x3 HEENT: Atraumatic, Normocephalic Neck: Supple, 2+ carotid pulse no bruit, JVD not distended, No Thyromegaly, No LAD Respiratory: Clear to auscultation bilaterally, Normal air movement Cardiovascular: Normal pulses, Regular rate/rhythm, Normal S1 S2, No murmurs Gastrointestinal: Normal bowel sounds, Hypoactive, Soft and benign, Non- distended, No ascites Musculoskeletal: No clubbing, No swelling, No contractures Integumentary: No rashes Neurological: Normal gait, Normal speech, Normal strength at 5/5 x4 extr, Normal tone, Sensation intact, Cranial nerves 3-12 intact, Normal reflexes 2+ Lymphatics: No axilla or inguinal lymphadenopathy - Studies Laboratory Data (last 24 hrs) 12/23/17 18:05: PT 13.0 H, INR 1.10 12/23/17 18:05: WBC 14.2 H, Hgb 16.1, Hct 48.3, Plt Count 285 12/23/17 18:05: Sodium 140, Potassium 4.3, BUN 16, Creatinine 0.90, Glucose 103 , Total Bilirubin 0.9, AST 18, ALT 22, Alkaline Phosphatase 105 Assessment & Plan - Problems (Diagnosis) (1) Respiratory failure Current Visit: Yes Status: Acute (2) Atelectasis Current Visit: No Status: Acute (3) Severe chronic obstructive pulmonary disease Current Visit: No Status: Acute (4) Congestive heart failure Current Visit: No Status: Chronic Qualifiers: - Plan Plan: -nebs, steroids, and antibiotics -O2 per protocol. -Pulmonary consultation -Ventilator suort; change vent settings in the morning -repeat chest x-ray -pulmonary consultation -DVT prophylaxis Discharge Plan: Home Plan to discharge in: Greater than 2 days - Advance Directives Does patient have a Living Will: No Does patient have a Durable POA for Healthcare: No - Code Status/Comfort Care Code Status Assessed: Yes Code Status: Full Code Critical Care: Yes Time Spent Managing PTS Care (In Minutes): 60
[2017-12-24] MEDS ORDERED: FAMOTIDINE 20 MG/2 ML VIAL IV SCH (09:00)
[2017-12-24] MEDS: TAMSULOSIN 0.4 MG SR CAP PO SCH ×2 (09:00→21:41)
[2017-12-24] MEDS: ENOXAPARIN 40 MG/0.4 ML SQ SCH (09:46)
[2017-12-24] MEDS: NA CHLORIDE 0.9% 1,000 ML IV SCH ×2 (09:48→18:10)
[2017-12-24] MEDS: CEFTRIAXONE/SWI 1gm 1 GM/10 ML SYR IV SCH ×2 (09:51→21:42)
[2017-12-24] MEDS ORDERED: ROCURONIUM 50 MG/5 ML VIAL IV ONE (10:32)
[2017-12-24] MEDS ORDERED: RSI MEDICATION KIT IV ONE (10:32)
[2017-12-24] MEDS ORDERED: MIDAZOLAM HCL 2 MG/2 ML INJ ONE (10:32)
--- NOTE | 2017-12-24 12:06 | P.CNS ---
Date of Consult: 12/24/17 Reason for Consult: respiratory failure Chief Complaint: Respiratory failure History of Present Illness: Patient is 77 years of age well known to me with terminal COPD admitted from the emergency room with shortness of breath he got worse after BiPAP in place became hypercapnic respiratory distress was intubated transferred here to the ICU is currently doing well he is alert responsive cooperative wants to be extubated there was no evidence of pulmonary emboli. Patient is hemodynamically stable Allergies hydromorphone HCl [From Dilaudid] Adverse Reaction (Severe, Verified 06/17/17 21 :47) Itching Home Medications: Acetaminophen with Codeine [Acetaminophen-Cod #3 Tablet] 1 each PO Q8HP PRN Albuterol Sulfate [Proair Hfa] 2 puff IH Q6HP PRN 12/23/17 Cefadroxil Hydrate [Duricef] 500 mg PO BID 12/23/17 Diphenhydramine [Benadryl Tab/Cap] 25 mg PO BEDTIME PRN PRN 12/23/17 Doxycycline Hyclate 100 mg PO Q12H 12/23/17 Fluticasone [Flonase 50mcg Nasal [place]] 1 sprays NS BID 12/23/17 Ipratropium/Albuterol Sulfate [Iprat-Albut 0.5-3(2.5) mg/3 ml] 3 ml IH QID 12/23 Levocetirizine Dihydrochloride [24Hr Allergy Relief] 5 mg PO BEDTIME 12/23/17 Montelukast [Singulair] 10 mg PO DAILY 12/23/17 Pantoprazole [Protonix Tab] 40 mg PO DAILY 12/23/17 Q-Tussin Dm 10-100mg/5ml 5 ml PO Q6HP PRN 12/23/17 Tamsulosin [Flomax] 0.4 mg PO BID 12/23/17 Vardenafil HCl [Levitra] 20 mg PO DAILYPRN PRN 12/23/17 clonazePAM [Clonazepam] 0.5 mg PO BIDP PRN 12/23/17 - Past Medical/Surgical History Diabetic: No -: Allergic rhinitis -: COPD -: PE -: gerd -: prostate problems -: Rib surgery -: appendectomy -: blood clot removed from lung - Family History Father Medical History: GI disease Mother Medical History: Heart disease Sister Medical History: Heart disease - Social History Smoking Status: Unknown if ever smoked Alcohol use: No CD- Drugs: No Caffeine use: Yes Place of Residence: Home Review of Systems is unable to be obtained Physical Examination Temp Pulse Resp BP Pulse Ox 98.5 F 96 H 16 98/64 93 12/24/17 08:18 12/24/17 08:18 12/24/17 08:18 12/24/17 08:18 12/24/17 08:18 General: Alert, Cooperative Neck: Supple Respiratory: Diminished, Expiratory wheezes Cardiovascular: No edema, Normal S1 S2 Gastrointestinal: Normal bowel sounds Laboratory Data (last 24 hrs) 12/23/17 18:05: PT 13.0 H, INR 1.10 12/23/17 18:05: WBC 14.2 H, Hgb 16.1, Hct 48.3, Plt Count 285 12/23/17 18:05: Sodium 140, Potassium 4.3, BUN 16, Creatinine 0.90, Glucose 103 , Total Bilirubin 0.9, AST 18, ALT 22, Alkaline Phosphatase 105 - Problems (1) Acute and chronic respiratory failure Onset Date: 06/18/17 Current Visit: No Status: Acute Plan: Patient is 77 years of age admitted with acute on chronic respiratory failure he has terminal COPD currently he is doing well there is no evidence of pneumonia or thromboembolism chronic right upper lobe changes patient was hypoxic mildly hypercapnic on admission plan to wean off and extubate continue with bronchodilator therapy labs reviewed cultures pending he has terminal COPD may require BiPAP Solu-Medrol dose has been reduced continue with albuterol and ipratropium schedules Dc Zithromax continue with Rocephin sputum culture Qualifiers: Respiratory failure complication: hypoxia Qualified Code(s): J96.21 - Acute and chronic respiratory failure with hypoxia
--- NOTE | 2017-12-24 14:42 | P.PN ---
Subjective Date of Service: 12/24/17 Primary Care Provider: Unknown; Pulmonary-Dr. Michelle Chief Complaint: Respiratory failure Subjective: Other (Patient intubated and sedated.) Physical Examination - Vital Signs Temperature: 98.5 F Blood Pressure: 124/84 Pulse: 99 Respirations: 15 Pulse Ox (%): 96 - Physical Exam General: Other (Patient intubated and sedated.) HEENT: Atraumatic Neck: Supple Respiratory: Clear to auscultation bilaterally, Normal air movement Cardiovascular: Normal pulses, Regular rate/rhythm Gastrointestinal: Normal bowel sounds, Soft and benign, Non-distended, No masses Neurological: Other (Patient intubated and sedated.) - Studies Laboratory Data (last 24 hrs) 12/23/17 18:05: PT 13.0 H, INR 1.10 12/23/17 18:05: WBC 14.2 H, Hgb 16.1, Hct 48.3, Plt Count 285 12/23/17 18:05: Sodium 140, Potassium 4.3, BUN 16, Creatinine 0.90, Glucose 103 , Total Bilirubin 0.9, AST 18, ALT 22, Alkaline Phosphatase 105 Medications List Reviewed: Yes Assessment & Plan - Problems (Diagnosis) (1) COPD (chronic obstructive pulmonary disease) Current Visit: No Status: Acute Plan: Patient with severe COPD requiring oxygen at home. Patient currently intubated and sedated. Pulmonology has evaluated patient. Plan is to extubate patient today. Patient may require skilled placement at discharge. Will need to reassess again tomorrow. Will need discuss with family. Patient has end-stage COPD. Will need to Re discuss advanced directives as well. Qualifiers: COPD type: COPD with acute exacerbation Qualified Code(s): J44.1 - Chronic obstructive pulmonary disease with (acute) exacerbation (2) BPH (benign prostatic hyperplasia) Current Visit: No Status: Chronic Plan: Continue with medication Qualifiers: Lower urinary tract symptom presence: unspecified whether lower urinary tract symptoms present Qualified Code(s): N40.0 - Benign prostatic hyperplasia without lower urinary tract symptoms (3) GERD (gastroesophageal reflux disease) Current Visit: No Status: Chronic Plan: Continue with medication Qualifiers: Esophagitis presence: esophagitis presence not specified Qualified Code(s) : K21.9 - Gastro-esophageal reflux disease without esophagitis (4) Acute and chronic respiratory failure Onset Date: 06/18/17 Current Visit: No Status: Acute Plan: Patient currently intubated and sedated. Plan is to extubate later today. Patient will continue with antibiotic therapy and COPD treatment. Will discuss with pulmonology about plan of care. Patient has end-stage COPD. He requires home oxygen. Patient may benefit with skilled placement at discharge. Will need to Re discuss advanced directives. Qualifiers: Respiratory failure complication: hypoxia and hypercapnia Qualified Code(s) : J96.21 - Acute and chronic respiratory failure with hypoxia; J96.22 - Acute and chronic respiratory failure with hypercapnia Discharge Plan: Other (Home verses skilled placement) Plan to discharge in: Greater than 2 days Time Spent Managing Pts Care (In Minutes): 55
[2017-12-24] MEDS ORDERED: PANTOPRAZOLE 40MG TABLET PO ONE (17:28)
[2017-12-24] MEDS: METHYLPREDNISOLONE 40 MG INJ IV SCH (18:00)
[2017-12-24] MEDS ORDERED: PANTOPRAZOLE 40MG TABLET PO SCH (18:00)
[2017-12-25] MEDS: METHYLPREDNISOLONE 40 MG INJ IV SCH (00:26)
[2017-12-25] MEDS: ALBUTEROL 2.5 MG/3 ML NEB SOL NEB SCH ×2 (01:32→07:30)
[2017-12-25] MEDS: IPRATROPIUM BROM 0.5MG/2.5ML NEB SCH ×2 (01:32→07:30)
[2017-12-25 05:41] LABS: Absolute Lymphocytes (CBC) 0.4 K/uL (0.7-4.9); Absolute Monocytes 0.5 K/uL (0.1-1.3); Absolute Neutrophil 13.4 K/uL (1.8-8.0); Hematocrit 39.7 % (39.6-49.0); MCH 30.3 pg (27.0-35.0); MCV 89.9 fL (80-100); MPV 9.1 fL (7.6-11.3); Monocytes % 3.4 % (3.3-12.3); RBC Red Blood Cell Count 4.41 M/uL (4.33-5.43)
[2017-12-25 06:06] LABS: BUN Blood Urea Nitrogen 17 mg/dL (7-18); Bicarbonate 27 mmol/L (21-32); Glucose Level 150 mg/dL (74-106); Magnesium 2.4 mg/dL (1.8-2.4); Potassium 3.8 mmol/L (3.5-5.1); Sodium Level 146 mmol/L (136-145)
[2017-12-25] MEDS ORDERED: POTASSIUM CL SA 10 MEQ TAB PO ONE (07:00)
[2017-12-25 07:29] VITALS: BMI 18.0
[2017-12-25] MEDS ORDERED: PANTOPRAZOLE 40MG TABLET PO SCH (07:30)
[2017-12-25] MEDS ORDERED: ALBUTEROL 2.5 MG/3 ML NEB SOL NEB PRN (08:19)
[2017-12-25] MEDS ORDERED: IPRATROPIUM BROM 0.5MG/2.5ML NEB PRN (08:19)
--- NOTE | 2017-12-25 08:19 | P.PN ---
Subjective Date of Service: 12/25/17 Primary Care Provider: Unknown; Pulmonary-Dr. Michelle Chief Complaint: Respiratory failure Subjective: Doing well (Patient is doing better today. Patient still requiring oxygen. Patient has been up and moving around. Patient desires to go home at discharge. Patient to be weaned off oxygen.) Physical Examination - Vital Signs Temperature: 97.2 F Blood Pressure: 127/74 Pulse: 100 Respirations: 18 Pulse Ox (%): 97 - Physical Exam General: Alert, In no apparent distress, Oriented x3, Cooperative HEENT: Atraumatic Neck: Supple Respiratory: Expiratory wheezes (Bilateral but improved aeration bilaterally.), Other (Barrel chest) Cardiovascular: Normal pulses, Regular rate/rhythm Gastrointestinal: Normal bowel sounds, Soft and benign, Non-distended, No tenderness, No masses, No rebound, No guarding Musculoskeletal: No erythema, No tenderness, No warmth Integumentary: No tenderness/swelling, No erythema, No warmth, No cyanosis Neurological: Normal speech, Normal strength at 5/5 x4 extr, Normal tone, Normal affect - Studies Medications List Reviewed: Yes Assessment & Plan - Problems (Diagnosis) (1) COPD (chronic obstructive pulmonary disease) Current Visit: No Status: Acute Plan: Patient with severe COPD. Patient recovering well. Patient prefers to go home without oxygen. Will try to wean him off oxygen today. Will have physical therapy ambulate. Will recheck chest x-ray today. Will reassess this afternoon. If doing well later possible discharge as early as today in the afternoon or tomorrow. Qualifiers: COPD type: COPD with acute exacerbation Qualified Code(s): J44.1 - Chronic obstructive pulmonary disease with (acute) exacerbation (2) BPH (benign prostatic hyperplasia) Current Visit: No Status: Chronic Plan: Continue with medication Qualifiers: Lower urinary tract symptom presence: unspecified whether lower urinary tract symptoms present Qualified Code(s): N40.0 - Benign prostatic hyperplasia without lower urinary tract symptoms (3) GERD (gastroesophageal reflux disease) Current Visit: No Status: Chronic Plan: Continue with medication Qualifiers: Esophagitis presence: esophagitis presence not specified Qualified Code(s) : K21.9 - Gastro-esophageal reflux disease without esophagitis (4) Acute and chronic respiratory failure Onset Date: 06/18/17 Current Visit: No Status: Acute Plan: Patient doing well currently on oxygen. Will continue to wean off oxygen. Patient will likely require oxygen at discharge. Will ambulate. Will recheck chest x-ray today. Possible later discharge or tomorrow. Qualifiers: Respiratory failure complication: hypoxia and hypercapnia Qualified Code(s) : J96.21 - Acute and chronic respiratory failure with hypoxia; J96.22 - Acute and chronic respiratory failure with hypercapnia (5) Hypernatremia Current Visit: Yes Status: Acute Plan: Patient taking good oral intake well. Will Dc IV fluids. Will monitor closely. (6) Pneumonia Current Visit: Yes Status: Suspected Plan: Will adjust IV antibiotic therapy to oral Levaquin. Will recheck chest x-ray today. Wean off oxygen. Qualifiers: Pneumonia type: due to unspecified organism Laterality: bilateral Lung location: lower lobe of lung Qualified Code(s): J18.1 - Lobar pneumonia, unspecified organism Discharge Plan: Home Plan to discharge in: 24 Hours Time Spent Managing Pts Care (In Minutes): 55
[2017-12-25] MEDS: ENOXAPARIN 40 MG/0.4 ML SQ SCH (08:40)
[2017-12-25] MEDS: TAMSULOSIN 0.4 MG SR CAP PO SCH (08:40)
--- NOTE | 2017-12-25 08:41 | RAD REPORT ---
EXAM DESCRIPTION: RAD - Chest Single View - 12/25/2017 6:54 am CLINICAL HISTORY: Follow up COPD Chest pain. COMPARISON: Chest Single View dated 12/23/2017; Chest Single View dated 12/23/2017; Chest Single View dated 07/17/2017; Chest Single View dated 06/17/2017; Chest For Pe Angio dated 12/23/2017 FINDINGS: Portable technique limits examination quality. Since the most recent comparative study, the patient has been extubated. Prominent COPD pattern is no yinka. Blunting of left costophrenic angle is noted, likely chronic. The heart is normal in size. No di splaced fractures. IMPRESSION: Advanced COPD.
[2017-12-25] MEDS ORDERED: predniSONE 20 MG TAB PO SCH (09:00)
[2017-12-25] MEDS ORDERED: levoFLOXacin 500 MG TAB PO SCH (09:00)
[2017-12-25 12:44] VITALS: O2SAT 97
--- NOTE | 2017-12-25 14:26 | P.DS ---
Admission Date: 12/23/17 Discharge Date: 12/25/17 Primary Care Provider: Dr. Cervantes; Pulmonary-Dr. Michelle Disposition: DC HOME/HOME HEALTH CARE Discharge Condition: GOOD Reason for Admission: Respiratory failure Consultations: Pulmonary-Dr. Michelle Procedures: CT scan: FINDINGS: No pulmonary emboli are identified. The aorta as imaged shows no acute or suspicious finding. No pericardial thickening or effusion. No peripheral mass or consolidation. Patient has irregular scarring in the right apex that is not clearly changed. Severe COPD changes are present. 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 Lung parenchyma is not substantially different from comparison. No pleural effusion or pleural thickening. No mediastinal or hilar suspicious masses. No chest wall masses or abnormal axillary lymphadenopathy. Endotracheal tube is in good position. NG tube extends into the stomach. Bronchial wall thickening is seen. There are areas of bronchial opacification in both lower lung deng. No significant or measurable bronchiectasis. IMPRESSION: No pulmonary emboli identified. Lower lobe bronchial wall thickening and opacification of the bronchi a likely bronchitis/ viral infiltrate process. Severe COPD similar to comparison. - Problems (1) COPD (chronic obstructive pulmonary disease) Current Visit: No Status: Acute Qualifiers: COPD type: COPD with acute exacerbation Qualified Code(s): J44.1 - Chronic obstructive pulmonary disease with (acute) exacerbation (2) BPH (benign prostatic hyperplasia) Current Visit: No Status: Chronic Qualifiers: Lower urinary tract symptom presence: unspecified whether lower urinary tract symptoms present Qualified Code(s): N40.0 - Benign prostatic hyperplasia without lower urinary tract symptoms (3) GERD (gastroesophageal reflux disease) Current Visit: No Status: Chronic Qualifiers: Esophagitis presence: esophagitis presence not specified Qualified Code(s) : K21.9 - Gastro-esophageal reflux disease without esophagitis (4) Acute and chronic respiratory failure Onset Date: 06/18/17 Current Visit: No Status: Acute Qualifiers: Respiratory failure complication: hypoxia and hypercapnia Qualified Code(s) : J96.21 - Acute and chronic respiratory failure with hypoxia; J96.22 - Acute and chronic respiratory failure with hypercapnia (5) Hypernatremia Current Visit: Yes Status: Acute (6) Pneumonia Current Visit: Yes Status: Suspected Qualifiers: Pneumonia type: due to unspecified organism Laterality: bilateral Lung location: lower lobe of lung Qualified Code(s): J18.1 - Lobar pneumonia, unspecified organism (7) Seasonal allergic rhinitis Current Visit: Yes Status: Chronic Qualifiers: Allergic rhinitis trigger: unspecified Qualified Code(s): J30.2 - Other seasonal allergic rhinitis Brief History of Present Illness: 77 yo CM presented to the ER with shortness of breath. He has history of severe COPD. He was seen in the ER and found to have acute with chronic respiratory failure. He was initially on BIPAP but did not improve. He was eventually intubated and placed to the ICU. Hospital Course: The patient presented with shortness of breath. Patient found to have acute on chronic respiratory failure with COPD exacerbation. Patient was intubated and sent to the ICU. Patient was eventually extubated. Patient seen by pulmonology. CT scan showed no pulmonary embolism. CT scan revealed severe COPD with bronchial wall thickening to the lower lobes. Infectious process was suspected. Patient started on antibiotic therapy. The patient was able to wean off oxygen. At discharge he did not require any oxygen. Patient now back to baseline. At discharge patient will continue with prednisone 20 mg 1 pill twice daily for 5 days then 1 pill once daily for 5 days. Patient will continue with COPD treatment including Spiriva 1 puff daily and Symbicort 2 puffs twice daily. Patient will also continue with albuterol 2 puffs 3 times a day as needed for shortness of breath. For suspected pneumonia patient will continue with Levaquin 500 mg 1 pill daily for 7 days. Recommendation is for repeat chest x-ray in 2-4 weeks to monitor resolution. Recommendations for the patient to follow up with pulmonology in 1-2 weeks to follow up this hospitalization and continue his care. Patient will need to limit his activities due to severe COPD. Patient has GERD. Patient will continue with Protonix 40 mg 1 pill once daily. Patient has BPH. Patient will continue with Flomax 0.4 mg 1 pill once daily. Patient has seasonal allergies. Patient may continue with antihistamine and Singulair 1 pill daily. Vital Signs/Physical Exam: Temp Pulse Resp BP Pulse Ox 98.2 F 79 18 152/67 H 97 12/25/17 12:00 12/25/17 12:00 12/25/17 12:00 12/25/17 12:00 12/25/17 12:00 General: Alert, In no apparent distress, Oriented x3, Cooperative HEENT: Atraumatic Neck: Supple Respiratory: Expiratory wheezes (but improve air movement. ) Cardiovascular: Normal pulses, Regular rate/rhythm Gastrointestinal: Normal bowel sounds, Soft and benign, Non-distended, No tenderness, No masses, No rebound, No guarding Musculoskeletal: No erythema, No tenderness, No warmth Integumentary: No tenderness/swelling, No erythema, No warmth, No cyanosis Neurological: Normal speech, Normal strength at 5/5 x4 extr, Normal tone, Normal affect Laboratory Data at Discharge: WBC 14.3 K/uL (4.3-10.9) H 12/25/17 04:25 Hgb 13.3 g/dL (13.6-17.9) L 12/25/17 04:25 Hct 39.7 % (39.6-49.0) 12/25/17 04:25 Plt Count 244 K/uL (152-406) 12/25/17 04:25 PT 13.0 SECONDS (9.5-12.5) H 12/23/17 18:05 INR 1.10 12/23/17 18:05 Sodium 146 mmol/L (136-145) H 12/25/17 04:25 Potassium 3.8 mmol/L (3.5-5.1) 12/25/17 04:25 BUN 17 mg/dL (7-18) 12/25/17 04:25 Creatinine 0.80 mg/dL (0.55-1.3) 12/25/17 04:25 Glucose 150 mg/dL (74-106) H 12/25/17 04:25 Phosphorus 2.6 mg/dL (2.5-4.9) 12/24/17 05:07 Magnesium 2.4 mg/dL (1.8-2.4) 12/25/17 04:25 Total Bilirubin 0.6 mg/dL (0.2-1.0) 12/24/17 05:07 AST 19 U/L (15-37) 12/24/17 05:07 ALT 20 U/L (12-78) 12/24/17 05:07 Alkaline Phosphatase 95 U/L (45-117) 12/24/17 05:07 Home Medications: Acetaminophen with Codeine [Acetaminophen-Cod #3 Tablet] 1 each PO Q8HP PRN Fluticasone [Flonase 50MCG Nasal [place]*] 1 sprays NS BID 12/23/17 Levocetirizine Dihydrochloride [24Hr Allergy Relief] 5 mg PO BEDTIME 12/23/17 Montelukast [Singulair*] 10 mg PO DAILY 12/23/17 Pantoprazole [Protonix Tab*] 40 mg PO DAILY 12/23/17 Tamsulosin [Flomax*] 0.4 mg PO BID 12/23/17 Vardenafil HCl [Levitra] 20 mg PO DAILYPRN PRN 12/23/17 clonazePAM [Clonazepam] 0.5 mg PO BIDP PRN 12/23/17 Albuterol Sulfate [Proair Hfa] 2 puff IH Q6HP PRN #1 hfa.aer.ad 12/25/17 Budesonide/Formoterol Fumarate [Symbicort 160-4.5 Mcg Inhaler] 2 puff IH BID #1 hfa.aer.ad 12/25/17 Tiotropium [place] [Spiriva] 1 spray IH DAILY #1 cap.w.dev 12/25/17 levoFLOXacin [Levaquin*] 500 mg PO DAILY #7 tab 12/25/17 predniSONE [Prednisone*] 20 mg PO SEECOM #15 tab 12/25/17 New Medications: Albuterol Sulfate [Proair Hfa] 2 puff IH Q6HP PRN #1 hfa.aer.ad PRN Reason: wheezing Budesonide/Formoterol Fumarate [Symbicort 160-4.5 Mcg Inhaler] 2 puff IH BID #1 hfa.aer.ad levoFLOXacin [Levaquin*] 500 mg PO DAILY #7 tab predniSONE [Prednisone*] 20 mg PO SEECOM #15 tab Tiotropium [place] [Spiriva] 1 spray IH DAILY #1 cap.w.dev Patient Discharge Instructions: 1. Patient will need a follow up with his PCP in 1 week to follow up this hospitalization. 2. Patient presented with shortness of breath. Patient found to have acute on chronic respiratory failure with COPD exacerbation. Patient was intubated and sent to the ICU. Patient was eventually extubated. Patient seen by pulmonology. CT scan showed no pulmonary embolism. CT scan revealed severe COPD with bronchial wall thickening to the lower lobes. Infectious process was suspected. Patient started on antibiotic therapy. The patient was able to wean off oxygen. At discharge he did not require any oxygen. Patient now back to baseline. At discharge patient will continue with prednisone 20 mg 1 pill twice daily for 5 days then 1 pill once daily for 5 days. Patient will continue with COPD treatment including Spiriva 1 puff daily and Symbicort 2 puffs twice daily. Patient will also continue with albuterol 2 puffs 3 times a day as needed for shortness of breath. For suspected pneumonia patient will continue with Levaquin 500 mg 1 pill daily for 7 days. Recommendation is for repeat chest x- ray in 2-4 weeks to monitor resolution. Recommendations for the patient to follow up with pulmonology in 1-2 weeks to follow up this hospitalization and continue his care. Patient will need to limit his activities due to severe COPD. 3. Patient has GERD. Patient will continue with Protonix 40 mg 1 pill once daily. 4. Patient has BPH. Patient will continue with Flomax 0.4 mg 1 pill once daily. 5. Patient has seasonal allergies. Patient may continue with antihistamine and Singulair 1 pill daily. Diet: AHA Activity: Fall precautions Time spent managing pt's care (in minutes): 55
[2017-12-25 18:37] VITALS: BP 165/84; TEMP 98.5
[2017-12-25] MEDS ORDERED: ARFORMOTEROL TARTRATE 15 MCG/2 ML VIAL.NEB NEB SCH (20:00)
== END 2017-12-25 17:00 | disposition home health service (06) | DRG 208 ==
LOC: ER 18:03 → ERHOLD 19:18 → 3RD-ICU 20:53 → 2ND 12-24 18:21
PROVIDERS: ADMIT Hospitalist; ATTEND Family Medicine
PROC: 0BH18EZ Insertion of Endotracheal Airway into Trachea, Via Natural or Artificial Opening Endoscopic (ICD-10-PCS; principal; 2017-12-23)
PROC: 5A1935Z Respiratory Ventilation, Less than 24 Consecutive Hours (ICD-10-PCS; 2017-12-23)
PROC: 5A09357 Assistance with Respiratory Ventilation, Less than 24 Consecutive Hours, Continuous Positive Airway Pressure (ICD-10-PCS; 2017-12-23)
DX: J96.22 Acute and chronic respiratory failure with hypercapnia (principal); J18.9 Pneumonia, unspecified organism; J44.1 Chronic obstructive pulmonary disease with (acute) exacerbation; E87.0 Hyperosmolality and hypernatremia; J44.0 Chronic obstructive pulmonary disease with (acute) lower respiratory infection; Z88.5 Allergy status to narcotic agent; I50.9 Heart failure, unspecified; K21.9 Gastro-esophageal reflux disease without esophagitis; Z86.711 Personal history of pulmonary embolism; J96.21 Acute and chronic respiratory failure with hypoxia; N40.0 Benign prostatic hyperplasia without lower urinary tract symptoms; J30.2 Other seasonal allergic rhinitis
CPT/HCPCS: 31500; 36415; 51702; 71045; 71275; 80048; 80053; 80076; 81003; 81015; 82805; 83605; 83735; 84100; 84145; 84484; 85025; 85610; 87040; 87070; 87205; 93005; 94002; 94003; 94640; 94660; 96372; 97163; 99285; J0456; J0696; J1650; J2250; J2920; J2930; J3010; J3475; J7030; J7512; Q9967

== ENCOUNTER 2018-03-28 16:53 | Inpatient (IN) | payer MEDICARE ==
[2018-03-28] MEDS ORDERED: METHYLPREDNISOLONE 125 MG INJ ONE (17:13)
[2018-03-28] MEDS ORDERED: LEVALBUTEROL 1.25 MG/3 ML NEB ONE (17:14)
[2018-03-28] MEDS ORDERED: Levofloxacin 750mg IV 750 MG/150 ML BAG IV ONE (17:14)
[2018-03-28] MEDS ORDERED: IPRATROPIUM BROM 0.5MG/2.5ML ONE (17:14)
[2018-03-28 17:48] LABS: Absolute Lymphocytes (CBC) 2.1 K/uL (0.7-4.9); Absolute Neutrophil 7.1 K/uL (1.8-8.0); Basophils % 0.6 % (0-1.3); Hematocrit 45.1 % (39.6-49.0); Lymphocytes % 18.9 % (15.3-44.8); MCH 31.4 pg (27.0-35.0); MCV 91.5 fL (80-100); MPV 9.6 fL (7.6-11.3); Monocytes % 8.7 % (3.3-12.3); RBC Red Blood Cell Count 4.92 M/uL (4.33-5.43)
[2018-03-28 17:51] LABS: ALT/SGPT 21 U/L (12-78); AST/SGOT 19 U/L (15-37); Albumin 3.5 g/dL (3.4-5.0); Alkaline Phosphatase 93 U/L (45-117); Bilirubin Direct 0.3 mg/dL (0-0.2); Bilirubin Total 0.9 mg/dL (0.2-1.0); CKMB Creatine Kinase MB 2.2 ng/mL (0.3-3.6); Creatine Phosphokinase 58 U/L (39-308); Lipase 113 U/L (73-393); NT PRO-BNP 97 pg/mL (<450); Protein, Total 6.8 g/dL (6.4-8.2); Troponin I < 0.02 ng/mL (0.0-0.045)
[2018-03-28 17:53] LABS: Protime INR 1.12
--- NOTE | 2018-03-28 18:44 | ER ---
Nurse's Notes [facility] Name: Raphael Gilbert Age: 77 yrs Sex: Male : 1940 Arrival Date: 03/28/2018 Time: 16:54 Bed 4 Private MD: Diagnosis: Chronic obstructive pulmonary disease with (acute) exacerbation Presentation: 03/28 16:57 Presenting complaint: EMS states: DIFFICULTY BREATHING FOR THREE DAYS. Transition of bp care: patient was not received from another setting of care. Onset of symptoms was March 25, 2018. Risk Assessment: Do you want to hurt yourself or someone else? Patient reports no desire to harm self or others. Initial Sepsis Screen: Does the patient meet any 2 criteria? RR > 20 per min. HR > 90 bpm. No. Patient's initial sepsis screen is negative. Does the patient have a suspected source of infection? Yes: Productive cough/pneumonia. Care prior to arrival: Medication(s) given: Albuterol Neb x 1, Atrovent Neb x 1. 16:57 Method Of Arrival: EMS: [facility] bp 16:57 Acuity: MEGHAN 2 bp Triage Assessment: 16:57 General: Appears distressed, comfortable, slender, Behavior is cooperative, appropriate bp for age, anxious. Pain: Denies pain. EENT: No deficits noted. Neuro: Level of Consciousness is awake, alert, obeys commands, Oriented to person, place, time, situation, Appropriate for age. Cardiovascular: Rhythm is sinus tachycardia. Respiratory: Reports shortness of breath at rest air hunger Breath sounds with wheezes bilaterally. Onset: The symptoms/episode began/occurred 3 DAYS AGO, the patient has moderate shortness of breath. GI: No signs and/or symptoms were reported involving the gastrointestinal system. : No signs and/or symptoms were reported regarding the genitourinary system. Derm: No deficits noted. Musculoskeletal: Circulation, motion, and sensation intact. Range of motion: intact in all extremities. Historical: - Allergies: 17:30 No Known Allergies; bp - Home Meds: 17:30 None [Active]; bp - PMHx: 17:30 Hypertension; bp - Immunization history:: Adult Immunizations up to date. - Social history:: Patient/guardian denies using alcohol, street drugs, The patient lives with family, Smoking status: Patient uses tobacco products, denies chronic smoking, but will smoke occasionally. - Family history:: not pertinent. - Ebola Screening: : Patient negative for fever greater than or equal to 101.5 degrees Fahrenheit, and additional compatible Ebola Virus Disease symptoms Patient denies exposure to infectious person Patient denies travel to an Ebola-affected area in the 21 days before illness onset No symptoms or risks identified at this time. Screenin:00 Abuse screen: Denies threats or abuse. Denies injuries from another. Nutritional bp screening: No deficits noted. Tuberculosis screening: No symptoms or risk factors identified. Fall Risk No fall in past 12 months (0 pts). No secondary diagnosis (0 pts). No IV (0 pts). Ambulatory Aid- None/Bed Rest/Nurse Assist (0 pts). Gait- Normal/Bed Rest/Wheelchair (0 pts) Mental Status- Oriented to own ability (0 pts). Total Lira Fall Scale indicates No Risk (0-24 pts). Assessment: 17:00 General: SEE TRIAGE NOTE. bp 18:00 Pain: Denies pain. Neuro: Level of Consciousness is awake, alert, obeys commands, bp Oriented to person, place, time, situation, Appropriate for age. Cardiovascular: Rhythm is sinus tachycardia. Respiratory: Airway is patent Respiratory effort is even, labored, Respiratory pattern is regular, tachypnea. GI: No signs and/or symptoms were reported involving the gastrointestinal system. : No signs and/or symptoms were reported regarding the genitourinary system. EENT: No deficits noted. Derm: No deficits noted. Musculoskeletal: Circulation, motion, and sensation intact. Range of motion: intact in all extremities. 18:58 Reassessment: ALL CURRENT ORDERS COMPLETED, CPAP IN PLACE, ADMIT IN PROCESS. bp 19:12 Reassessment: Patient appears in no apparent distress at this time. Patient and/or jd3 family updated on plan of care and expected duration. Pain level reassessed. Patient is alert, oriented x 3, equal unlabored respirations, skin warm/dry/pink. awaiting bed assignment. Vital Signs: 16:57 BP 155 / 117; Pulse 132; Resp 32; Temp 97; Pulse Ox 97% on R/A; Weight 58.97 kg; Height bp 5 ft. 11 in. (180.34 cm); 17:27 BP 123 / 93; Pulse 125; Resp 27; Pulse Ox 99% ; bp 18:58 BP 119 / 88; Pulse 119; Resp 17; Pulse Ox 98% ; bp 19:13 BP 114 / 99; Pulse 117; Resp 18 S; Pulse Ox 97% on R/A; jd3 16:57 Body Mass Index 18.13 (58.97 kg, 180.34 cm) bp ED Course: 16:54 Patient arrived in ED. ds1 16:54 Scarlet Benjamin MD is Attending Physician. ma2 16:57 Murphy Yoon, RN is Primary Nurse. bp 16:57 Arm band placed on. bp 16:58 Triage completed. bp 17:00 Inserted saline lock: 20 gauge in right antecubital area, using aseptic technique. bp Blood collected. 17:00 Patient has correct armband on for positive identification. Placed in gown. Bed in low bp position. Call light in reach. Side rails up X2. Adult w/ patient. 17:10 EKG done, by ED staff, reviewed by Scarlet Benjamin MD. jb1 18:42 Davey Rowe MD is Referral Physician. ma2 18:42 Scarlet Wesley MD is Referral Physician. ma2 18:42 Referral Physician role handed off by Davey Rowe MD ma2 18:45 Scarlet Wesley MD is Hospitalizing Provider. ma2 19:43 No provider procedures requiring assistance completed. Patient admitted, IV remains in jd3 place. Administered Medications: 17:05 Drug: SOLU-Medrol 125 mg Route: IVP; Site: right forearm; bp 17:51 Follow up: Response: No adverse reaction bp 17:05 Drug: Xopenex 1.25 mg Route: Inhalation; bp 19:53 Follow up: Response: No adverse reaction jd3 17:05 Drug: AtroVENT Aerosol 0.5 mg Route: Inhalation; bp 19:52 Follow up: Response: No adverse reaction jd3 17:05 Drug: LevaQUIN 750 mg Volume: 150 ml; Route: IVPB; Infused Over: 90 mins; Site: right bp forearm; 19:52 Follow up: Response: No adverse reaction; IV Status: Completed infusion jd3 Outcome: 18:43 Discharge ordered by . ma2 18:46 Decision to Hospitalize by Provider. ma2 19:49 Admitted to Med/surg accompanied by tech, via stretcher, room 208, with oxygen, with jd3 chart, Report called to Regine CARREON 19:49 Condition: stable 19:49 Instructed on the need for admit, Demonstrated understanding of instructions. 20:35 Patient left the ED. jd3 Signatures: Adalberto Shaikh jb1 Pilar Pabon ds1 Barak Frances RN RN jd3 Murphy Yoon RN RN bp Scarlet Benjamin MD MD ma2 Corrections: (The following items were deleted from the chart) 17:21 17:20 EKG done, by ED staff, reviewed by Scarlet wellington jb1 17:30 16:57 Allergies: Dilaudid [Inactive]; ma2 bp 17:30 16:57 Home Meds: pantoprazole 20 mg Oral TbEC [Inactive]; tn2 17:30 16:57 Home Meds: citriziine [Inactive]; tn2 17:30 16:57 Home Meds: fluticasone-salmeterol inhalation [Inactive]; tn2 17:30 16:57 Home Meds: Symbicort 160-4.5 mcg/actuation inhalation HFAA [Inactive]; tn2 bp 17:30 16:57 Home Meds: Albuterol Inhl [Inactive]; tn2 bp 17:30 16:57 Home Meds: tamsulosin 0.4 mg Oral cp24 [Inactive]; tn2 17:30 16:57 Home Meds: Atrovent Inhl [Inactive]; tn2 bp
--- NOTE | 2018-03-28 18:44 | EDPHYS ---
Physician Documentation [facility] Name: Raphael Gilbert Age: 77 yrs Sex: Male : 1940 Arrival Date: 03/28/2018 Time: 16:54 Bed 4 Private MD: ED Physician Scarlet Benjamin HPI: 03/28 16:56 This 77 yrs old Male presents to ER via Unassigned with complaints of ma2 Shortness Of Breath. 16:56 The patient has shortness of breath at rest. Onset: The symptoms/episode began/occurred ma2 gradually, 1 day(s) ago. Duration: The symptoms are continuous. Associated signs and symptoms: Pertinent positives: productive cough, Pertinent negatives: chest pain, diaphoresis, dizziness, loss of consciousness, nausea, visual changes, vomiting. Severity of symptoms: At their worst the symptoms were severe in the emergency department the symptoms are unchanged. The patient has not experienced similar symptoms in the past. hx of copd. Historical: - Allergies: 17:30 No Known Allergies; bp - Home Meds: 17:30 None [Active]; bp - PMHx: 17:30 Hypertension; bp - Immunization history:: Adult Immunizations up to date. - Social history:: Patient/guardian denies using alcohol, street drugs, The patient lives with family, Smoking status: Patient uses tobacco products, denies chronic smoking, but will smoke occasionally. - Family history:: not pertinent. - Ebola Screening: : Patient negative for fever greater than or equal to 101.5 degrees Fahrenheit, and additional compatible Ebola Virus Disease symptoms Patient denies exposure to infectious person Patient denies travel to an Ebola-affected area in the 21 days before illness onset No symptoms or risks identified at this time. ROS: 16:57 Constitutional: Negative for fever, chills, and weight loss, Cardiovascular: Negative ma2 for chest pain, palpitations, and edema. 16:57 Cardiovascular: Negative for chest pain, orthopnea, paroxysmal nocturnal dyspnea. 16:57 Respiratory: Positive for cough, dyspnea on exertion, Negative for orthopnea, pleurisy, sputum production, acute changes. 16:57 All other systems are negative. Exam: 16:57 Constitutional: This is a well developed, well nourished patient who is awake, alert, ma2 and in no acute distress. Head/Face: Normocephalic, atraumatic. 16:57 ENT: Nares patent. No nasal discharge, no septal abnormalities noted. Tympanic membranes are normal and external auditory canals are clear. Oropharynx with no redness, swelling, or masses, exudates, or evidence of obstruction, uvula midline. Mucous membranes moist. Chest/axilla: Normal chest wall appearance and motion. Nontender with no deformity. No lesions are appreciated. Cardiovascular: Regular rate and rhythm with a normal S1 and S2. No gallops, murmurs, or rubs. Normal PMI, no JVD. No pulse deficits. Abdomen/GI: Soft, non-tender, with normal bowel sounds. No distension or tympany. No guarding or rebound. No evidence of tenderness throughout. MS/ Extremity: Pulses equal, no cyanosis. Neurovascular intact. Full, normal range of motion. Neuro: Awake and alert, GCS 15, oriented to person, place, time, and situation. Cranial nerves II-XII grossly intact. Motor strength 5/5 in all extremities. Sensory grossly intact. Cerebellar exam normal. Normal gait. Psych: Awake, alert, with orientation to person, place and time. Behavior, mood, and affect are within normal limits. 16:57 Constitutional: The patient appears in obvious distress, moderately distressed. 16:57 Respiratory: moderate respiratory distress is noted, Breath sounds: wheezing: expiratory that is moderate, is heard diffusely, Respiratory rate: 30 Vital Signs: 16:57 BP 155 / 117; Pulse 132; Resp 32; Temp 97; Pulse Ox 97% on R/A; Weight 58.97 kg; Height bp 5 ft. 11 in. (180.34 cm); 17:27 BP 123 / 93; Pulse 125; Resp 27; Pulse Ox 99% ; bp 18:58 BP 119 / 88; Pulse 119; Resp 17; Pulse Ox 98% ; bp 19:13 BP 114 / 99; Pulse 117; Resp 18 S; Pulse Ox 97% on R/A; jd3 16:57 Body Mass Index 18.13 (58.97 kg, 180.34 cm) bp MDM: 16:57 Differential diagnosis: Anemia Anxiety Reaction asthma, Bronchitis Chronic Obstructive ma2 Pulmonary Disease pneumonia, Pneumothorax reactive airway disease. Antibiotic administration: The patient is discharged and will get outpatient antibiotics, Levaquin given. The patient's pulmonary embolism risk score was calculated as follows: No Risks (0 Pts). 17:28 Patient medically screened. [facility] 18:40 Data reviewed: vital signs, nurses notes, EMS record, diagnostic data from outside [facility] facility, lab test result(s), EKG, radiologic studies. Counseling: I had a detailed discussion with the patient and/or guardian regarding: the historical points, exam findings, and any diagnostic results supporting the discharge/admit diagnosis, the presence of at least one elevated blood pressure reading (>120/80) during this emergency department visit, radiology results, the need for further work-up and treatment in the hospital. ED course: admit to observation for COPD exacerbation discussed with dr. west . 03/28 16:55 Order name: BIPAP [facility] 03/28 16:55 Order name: XRAY CXR (1 view) [facility] 03/28 17:29 Order name: Liver (Hepatic) Function; Complete Time: 18:06 [facility] 03/28 17:29 Order name: Creatine Phosphokinase; Complete Time: 18:06 [facility] 03/28 17:29 Order name: CKMB Creatine Kinase MB; Complete Time: 18:06 [facility] 03/28 17:29 Order name: Troponin I; Complete Time: 18:06 [facility] 03/28 17:29 Order name: NT PRO-BNP; Complete Time: 18:06 [facility] 03/28 17:29 Order name: Magnesium; Complete Time: 18:06 [facility] 03/28 17:29 Order name: Lipase; Complete Time: 18:06 [facility] 03/28 17:29 Order name: CBC with Automated Diff; Complete Time: 18:06 [facility] 03/28 17:29 Order name: Protime (+INR); Complete Time: 18:06 [facility] 03/28 17:29 Order name: PTT, Activated Partial Thromb; Complete Time: 18:06 [facility] 03/28 17:29 Order name: D-Dimer; Complete Time: 18:06 [facility] 03/28 17:30 Order name: Blood Culture [facility] 03/28 17:30 Order name: Blood Culture [facility] 03/28 17:58 Order name: Influenza Screen (A ; Complete Time: 19:13 [facility] 03/28 16:55 Order name: EKG; Complete Time: 18:15 [facility] 03/28 16:55 Order name: Cardiac monitoring; Complete Time: 17:22 [facility] 03/28 16:55 Order name: EKG - Nurse/Tech; Complete Time: 17: [facility] 03/28 16:55 Order name: IV Saline Lock; Complete Time: : [facility] 03/28 16:55 Order name: Labs collected and sent; Complete Time: 17: [facility] 03/28 16:55 Order name: O2 Per Protocol; Complete Time: 17: [facility] 03/28 16:55 Order name: O2 Sat Monitoring; Complete Time: : [facility] 03/28 19:08 Order name: RAD; Complete Time: 19:13 EDMS Administered Medications: 17:05 Drug: SOLU-Medrol 125 mg Route: IVP; Site: right forearm; bp 17:51 Follow up: Response: No adverse reaction bp 17:05 Drug: Xopenex 1.25 mg Route: Inhalation; bp 19:53 Follow up: Response: No adverse reaction jd3 17:05 Drug: AtroVENT Aerosol 0.5 mg Route: Inhalation; bp 19:52 Follow up: Response: No adverse reaction jd3 17:05 Drug: LevaQUIN 750 mg Volume: 150 ml; Route: IVPB; Infused Over: 90 mins; Site: right bp forearm; 19:52 Follow up: Response: No adverse reaction; IV Status: Completed infusion jd3 Disposition: 03/28/18 18:46 Hospitalization ordered by Scarlet West for Inpatient Admission. Preliminary diagnosis is Chronic obstructive pulmonary disease with (acute) exacerbation. - Bed requested for Telemetry/MedSurg (Inpatient). - Status is Inpatient Admission. jd3 - Condition is Stable. - Problem is an acute exacerbation. - Symptoms have improved. UTI on Admission? No Signatures: Dispatcher [employer] EDMS Gilda Quintanilla RN RN Barak Frances RN RN jd3 Peltier, Brian, RN RN bp Scarlet Benjamin MD MD ri2 Corrections: (The following items were deleted from the chart) 17: 16:57 Allergies: Dilaudid [Inactive]; ma2 bp 17:30 16:57 Home Meds: pantoprazole 20 mg Oral TbEC [Inactive]; ri2 bp 17:30 16:57 Home Meds: citriziine [Inactive]; ma2 bp 17:30 16:57 Home Meds: fluticasone-salmeterol inhalation [Inactive]; ma2 bp 17:30 16:57 Home Meds: Symbicort 160-4.5 mcg/actuation inhalation HFAA [Inactive]; ma2 bp 17:30 16:57 Home Meds: Albuterol Inhl [Inactive]; ma2 bp 17:30 16:57 Home Meds: tamsulosin 0.4 mg Oral cp24 [Inactive]; ma2 bp 17:30 16:57 Home Meds: Atrovent Inhl [Inactive]; ma2 bp 18:34 18:15 Influenza Screen (A \T\ B)+BA.LAB.BRZ ordered. EDMS EDMS 18:36 18:14 BASIC METABOLIC PANEL+C.LAB.BRZ ordered. EDMS EDMS 18:36 18:15 CKMB+C.LAB.BRZ ordered. EDMS EDMS 18:36 18:15 CREATINE PHOSPHOKINASE+C.LAB.BRZ ordered. EDMS EDMS 18:36 18:15 D-DIMER+COAG.LAB.BRZ ordered. EDMS EDMS 18:36 18:15 HEPATIC FUNCTION+C.LAB.BRZ ordered. EDMS EDMS 18:36 18:15 LIPASE+C.LAB.BRZ ordered. EDMS EDMS 18:36 18:15 MAGNESIUM+C.LAB.BRZ ordered. EDMS EDMS 18:36 18:15 PROBNP+C.LAB.BRZ ordered. EDMS EDMS 18:36 18:15 PROTIME (+INR)+COAG.LAB.BRZ ordered. EDMS EDMS 18:36 18:15 PTT, ACTIVATED+COAG.LAB.BRZ ordered. EDMS EDMS 18:36 18:15 TROPONIN (EMERG DEPT USE ONLY)+C.LAB.BRZ ordered. EDMS EDMS 18:37 18:15 CBC+H.LAB.BRZ ordered. EDMS EDMS 18:45 18:43 03/28/2018 18:43 Discharged to Home. Impression: Chronic obstructive pulmonary ma2 disease with (acute) exacerbation. Condition is Fair. Forms are Medication Reconciliation Form, Thank You Letter, Antibiotic Education, Prescription Opioid Use. Follow up: Scarlet West; When: Tomorrow; Reason: Continuance of care. ma2 18:47 18:14 BLOOD CULTURE*+BA.LAB.BRZ ordered. EDMS EDVT 19:30 18:46 Hospitalization Ordered by Scarlet West MD for Inpatient Admission. Preliminary mw diagnosis is Chronic obstructive pulmonary disease with (acute) exacerbation. Bed requested for Telemetry/MedSurg (Inpatient). Status is Inpatient Admission. Condition is Stable. Problem is an acute exacerbation. Symptoms have improved. UTI on Admission? No. ma2 20:35 19:30 03/28/2018 18:46 Hospitalization Ordered by Scarlet West MD for Inpatient jd3 Admission. Preliminary diagnosis is Chronic obstructive pulmonary disease with (acute) exacerbation. Bed requested for Telemetry/MedSurg (Inpatient). Status is Inpatient Admission. Condition is Stable. Problem is an acute exacerbation. Symptoms have improved. UTI on Admission? No. mw
--- NOTE | 2018-03-28 19:07 | RAD REPORT ---
EXAM DESCRIPTION: RAD - Chest Single View - 03/28/2018 6:57 pm CLINICAL HISTORY: CONGESTION Chest pain. COMPARISON: Chest Single View dated 12/25/2017; Chest Single View dated 12/23/2017; Chest Single View dated 12/23/2017; Chest Single View dated 07/17/2017; Chest For Pe Angio dated 12/23/2017 FINDINGS: Portable technique limits examination quality. Advanced COPD is present with irregular scarring in the right apex. Chronic left pleural thickening i s present. The heart is normal in size. No displaced fractures. IMPRESSION: Severe COPD.
[2018-03-28] MEDS ORDERED: ACETAMINOPHEN 500 MG TAB PO PRN (19:13)
[2018-03-28] MEDS ORDERED: MORPHINE 4 MG/ML SYR IV PRN (19:13)
[2018-03-28] MEDS ORDERED: ONDANSETRON 4 MG/2 ML VIAL IV PRN (19:13)
[2018-03-28] MEDS: IPRATROPIUM BROM 0.5MG/2.5ML NEB SCH (20:00)
[2018-03-28] MEDS: ALBUTEROL 2.5 MG/3 ML NEB SOL NEB SCH (20:00)
[2018-03-28] MEDS: NA CHLORIDE 0.9% 1,000 ML IV SCH (21:00)
[2018-03-28 21:14] VITALS: BMI 16.3
[2018-03-28] MEDS: METHYLPREDNISOLONE 125 MG INJ IV SCH (23:16)
[2018-03-28] MEDS: TEMAZEPAM 15 MG CAP PO SCH (23:55)
[2018-03-29 01:00] LABS: Urine Appearance CLEAR; Urine Bilirubin NEGATIVE (NEG); Urine Blood NEGATIVE (NEG); Urine Color YELLOW; Urine Glucose NEGATIVE (NEG); Urine Protein NEGATIVE (NEG); Urine Specific Gravity 1.025 (1.005-1.030); Urine Urobilinogen 0.2 mg/dL (0.2-1.0); Urine pH 5.5 (5.0-7.0)
[2018-03-29 01:12] LABS: Urine Microscopic Reflex NO UMIC
[2018-03-29] MEDS: IPRATROPIUM BROM 0.5MG/2.5ML NEB SCH ×4 (02:01→19:48)
[2018-03-29] MEDS: ALBUTEROL 2.5 MG/3 ML NEB SOL NEB SCH ×4 (02:01→19:47)
[2018-03-29] MEDS: METHYLPREDNISOLONE 125 MG INJ IV SCH ×4 (05:06→23:54)
[2018-03-29 05:16] LABS: Absolute Lymphocytes (CBC) 0.4 K/uL (0.7-4.9); Absolute Neutrophil 4.8 K/uL (1.8-8.0); Basophils % 0.1 % (0-1.3); Eosinophils % 0.1 % (0-4.4); Hematocrit 42.9 % (39.6-49.0); Lymphocytes % 7.6 % (15.3-44.8); MCH 31.4 pg (27.0-35.0); MCV 91.9 fL (80-100); MPV 9.5 fL (7.6-11.3); Monocytes % 0.9 % (3.3-12.3); RBC Red Blood Cell Count 4.67 M/uL (4.33-5.43)
[2018-03-29 05:33] LABS: Albumin 3.3 g/dL (3.4-5.0); Bilirubin Total 0.8 mg/dL (0.2-1.0); Potassium 4.8 mmol/L (3.5-5.1); Protein, Total 6.5 g/dL (6.4-8.2)
--- NOTE | 2018-03-29 06:17 | EKG ---
Test Date: 2018-03-28 Test Time: 17:00:23 First Front Ventilator: BALDOMERO MEASUREMENT RESULTS: Intervals: Rate: 133 FL: 122 QRSD: 76 QT: 310 QTc: 461 [place]: P: 81 FL: 122 QRS: 40 T: 65 INTERPRETIVE STATEMENTS: Sinus tachycardia Right atrial enlargement Borderline ECG Compared to ECG 12/23/2017 18:14:55 Atrial abnormality now present Electronically Signed On 03-29-18 06:17:04 FORMS EXAMINER by Jamil Will
[2018-03-29 06:42] LABS: Blood Morphology Comment NOT SEEN (NOT SEEN); Platelet Estimate ADEQ
--- NOTE | 2018-03-29 08:03 | P.HP ---
Certification for Inpatient Patient admitted to: Inpatient With expected LOS: >2 Midnights Patient will require the following post-hospital care: None Practitioner: I am a practitioner with admitting privileges, knowledge of patient current condition, hospital course, and medical plan of care. Services: Services provided to patient in accordance with Admission requirements found in Title 42 Section 412.3 of the Code of Federal Regulations Patient History Date of Service: 03/28/18 Reason for admission: COPD exacerbation History of Present Illness: Patient is a 77-year-old gentleman who is been in the hospital on numerous occasions with acute COPD exacerbation. His last admission he was intubated. Currently he is on BiPAP. He was brought into the emergency room because he was short of breath. His breathing is been getting worse over the last 3 days. His family called EMS and he was brought into the emergency room. He was started on BiPAP and given nebs, steroids and antibiotics. Clinically he appears to be doing a little better. He remains on BiPAP support. At this time , he will be admitted to the floor for further evaluation. Allergies hydromorphone HCl [From Dilaudid] Adverse Reaction (Severe, Verified 03/28/18 21 :04) Itching Home Medications: Acetaminophen with Codeine [Acetaminophen-Cod #3 Tablet] 1 each PO Q8HP PRN Fluticasone [Flonase 50MCG Nasal [place]*] 1 sprays NS BID 12/23/17 Levocetirizine Dihydrochloride [24Hr Allergy Relief] 5 mg PO BEDTIME 12/23/17 Pantoprazole [Protonix Tab*] 40 mg PO DAILY 12/23/17 Tamsulosin [Flomax*] 0.4 mg PO BID 12/23/17 clonazePAM [Clonazepam] 0.5 mg PO BIDP PRN 12/23/17 Albuterol Sulfate [Proair Hfa] 2 puff IH Q6HP PRN #1 hfa.aer.ad 12/25/17 Budesonide/Formoterol Fumarate [Symbicort 160-4.5 Mcg Inhaler] 2 puff IH BID #1 hfa.aer.ad 12/25/17 Tiotropium [place] [Spiriva] 1 spray IH DAILY #1 cap.w.dev 12/25/17 Ipratropium/Albuterol Sulfate [Iprat-Albut 0.5-3(2.5) mg/3 ml] 1 inh NEB QID PRN 03/28/18 - Past Medical/Surgical History Has patient received pneumonia vaccine in the past: Yes Diabetic: No -: Allergic rhinitis -: COPD -: Pulmonary embolism -: Gastroesophageal reflux disease -: Benign prostatic hypertrophy -: Rib surgery -: appendectomy -: Pulmonary embolectomy - Family History Father Medical History: GI disease Mother Medical History: Heart disease Sister Medical History: Heart disease - Social History Smoking Status: Former smoker Alcohol use: No CD- Drugs: No Caffeine use: Yes Place of Residence: Home Review of Systems 10-point ROS is otherwise unremarkable Physical Examination - Vital Signs Temperature: 97.1 F Blood Pressure: 105/65 Pulse: 100 Respirations: 16 Pulse Ox (%): 94 - Physical Exam General: Alert, In no apparent distress, Oriented x3 HEENT: Atraumatic, PERRLA, Mucous membr. moist/pink, EOMI, Sclerae nonicteric Neck: Supple, 2+ carotid pulse no bruit, No LAD, Without JVD or thyroid abnormality Respiratory: Diminished, Other Cardiovascular: Regular rate/rhythm, Normal S1 S2, Systolic murmur Gastrointestinal: Normal bowel sounds, Soft and benign, Non-distended, No tenderness Musculoskeletal: No swelling, No tenderness Integumentary: No rashes Neurological: Normal tone, Sensation intact, Cranial nerves 3-12 intact, Normal affect, Abnormal gait, Abnormal speech (Because of his respiratory status), Abnormal strength Lymphatics: No axilla or inguinal lymphadenopathy - Studies Laboratory Data (last 24 hrs) 03/28/18 17:15: PT 13.2 H, INR 1.12, APTT 38.9 H 03/28/18 17:15: Magnesium 2.0, Total Bilirubin 0.9, AST 19, ALT 21, Alkaline Phosphatase 93, Troponin I < 0.02, Lipase 113 03/28/18 17:15: WBC 11.3 H, Hgb 15.4, Hct 45.1, Plt Count 274 03/28/18 16:55: PT Cancelled, INR Cancelled, APTT Cancelled 03/28/18 16:55: WBC Cancelled, Hgb Cancelled, Hct Cancelled, Plt Count Cancelled 03/28/18 16:55: Sodium Cancelled, Potassium Cancelled, BUN Cancelled, Creatinine Cancelled, Glucose Cancelled, Magnesium Cancelled, Total Bilirubin Cancelled, AST Cancelled, ALT Cancelled, Alkaline Phosphatase Cancelled, Lipase Cancelled Microbiology Data (last 24 hrs): 03/28/18 17:50 Nasopharnyx Influenza Type A Antigen Screen - Final 03/28/18 17:50 Nasopharnyx Influenza Type B Antigen Screen - Final Assessment & Plan - Problems (Diagnosis) (1) Acute and chronic respiratory failure Onset Date: 06/18/17 Current Visit: No Status: Acute Qualifiers: (2) COPD exacerbation Onset Date: 10/25/15 Current Visit: No Status: Acute (3) BPH (benign prostatic hyperplasia) Current Visit: No Status: Chronic Qualifiers: (4) Congestive heart failure Onset Date: 12/24/17 Current Visit: No Status: Chronic Qualifiers: (5) GERD (gastroesophageal reflux disease) Current Visit: No Status: Chronic Qualifiers: (6) Seasonal allergic rhinitis Current Visit: No Status: Chronic Qualifiers: - Plan Plan: 1. Continue with albuterol and Atrovent nebs 2. Continue with IV steroids 3. BiPAP support 4. Pulmonary consultation 5. Room air O2 sats and check ABGs in the morning 6. Repeat chest x-ray in the morning 7. Additional supportive care as necessary 8. GI and DVT prophylaxis Discharge Plan: Home Plan to discharge in: Greater than 2 days - Advance Directives Does patient have a Living Will: No Does patient have a Durable POA for Healthcare: No - Code Status/Comfort Care Code Status Assessed: Yes Code Status: Full Code Critical Care: No Time Spent Managing PTS Care (In Minutes): 50
[2018-03-29 09:52] LABS: Arterial Blood Carboxyhemoglob 1.3 % (0-1.5); Blood Gas Oxyhemoglobin 94.2 % (94-97); Blood O2 Saturation 95.8 % (92-98.5)
--- NOTE | 2018-03-29 10:20 | RAD REPORT ---
EXAM DESCRIPTION: RAD - Chest Single View - 03/29/2018 6:44 am CLINICAL HISTORY: COPD Chest pain. COMPARISON: Chest Single View dated 03/28/2018; Chest Single View dated 12/25/2017; Chest Single View dated 12/23/2017; Chest Single View dated 12/23/2017 FINDINGS: Portable technique limits examination quality. Prominent emphysematous changes are present throughout the lungs. Linear scarring is present in the l eft base and right apex. The heart is normal in size. No displaced fractures. IMPRESSION: Advanced COPD.
--- NOTE | 2018-03-29 15:13 | P.PN ---
Subjective Date of Service: 03/29/18 Chief Complaint: COPD exacerbation Patient seen and examined at bedside. No family at bedside. Chart reviewed and Case discussed with nursing staff. Patient reports feeling better. No longer on BiPAP, using 2 L oxygen via nasal cannula. States that he does not use oxygen at home even though he does have oxygen at home. His lung doctor is unclear awake. He states he uses some inhalers at home, Symbicort though he is not sure about the names of the inhalers. Review of Systems As noted Physical Examination - Vital Signs Temperature: 97.8 F Blood Pressure: 118/76 Pulse: 107 Respirations: 16 Pulse Ox (%): 95 - Physical Exam General: Alert, In no apparent distress, Oriented x3 HEENT: Atraumatic, PERRLA, EOMI Neck: Supple, JVD not distended Respiratory: Crackles/rales, Expiratory wheezes, Inspiratory wheezes Cardiovascular: Regular rate/rhythm, Normal S1 S2 Gastrointestinal: Normal bowel sounds, No tenderness Musculoskeletal: No tenderness Integumentary: No rashes Neurological: Normal speech, Normal tone, Normal affect Lymphatics: No axilla or inguinal lymphadenopathy - Studies Laboratory Data (last 24 hrs) 03/28/18 17:15: PT 13.2 H, INR 1.12, APTT 38.9 H 03/28/18 17:15: Magnesium 2.0, Total Bilirubin 0.9, AST 19, ALT 21, Alkaline Phosphatase 93, Troponin I < 0.02, Lipase 113 03/28/18 17:15: WBC 11.3 H, Hgb 15.4, Hct 45.1, Plt Count 274 03/28/18 16:55: PT Cancelled, INR Cancelled, APTT Cancelled 03/28/18 16:55: WBC Cancelled, Hgb Cancelled, Hct Cancelled, Plt Count Cancelled 03/28/18 16:55: Sodium Cancelled, Potassium Cancelled, BUN Cancelled, Creatinine Cancelled, Glucose Cancelled, Magnesium Cancelled, Total Bilirubin Cancelled, AST Cancelled, ALT Cancelled, Alkaline Phosphatase Cancelled, Lipase Cancelled Microbiology Data (last 24 hrs): 03/28/18 17:50 Nasopharnyx Influenza Type A Antigen Screen - Final 03/28/18 17:50 Nasopharnyx Influenza Type B Antigen Screen - Final Medications List Reviewed: Yes Assessment And Plan - Plan - Problems (Diagnosis) (1) Acute and chronic respiratory failure Onset Date: 06/18/17 Current Visit: No Status: Acute Qualifiers: (2) COPD exacerbation Onset Date: 10/25/15 Current Visit: No Status: Acute (3) BPH (benign prostatic hyperplasia) Current Visit: No Status: Chronic Qualifiers: (4) Congestive heart failure Onset Date: 12/24/17 Current Visit: No Status: Chronic Qualifiers: (5) GERD (gastroesophageal reflux disease) Current Visit: No Status: Chronic Qualifiers: (6) Seasonal allergic rhinitis Current Visit: No Status: Chronic Qualifiers: - Plan Plan: 1. Continue with albuterol and Atrovent nebs 2. Continue with IV steroids 3. BiPAP support 4. Pulmonary consultation 5. Room air O2 sats and check ABGs in the morning 6. Repeat chest x-ray in the morning 7. Additional supportive care as necessary 8. GI and DVT prophylaxis Physician Review: Patient Assessed, Agree with Above Assessment and Plan Time Spent Managing PTS Care (In Minutes): 45
[2018-03-29] MEDS: TEMAZEPAM 15 MG CAP PO SCH (20:02)
[2018-03-30] MEDS: ALBUTEROL 2.5 MG/3 ML NEB SOL NEB SCH ×4 (01:26→19:44)
[2018-03-30] MEDS: IPRATROPIUM BROM 0.5MG/2.5ML NEB SCH ×4 (01:26→19:44)
[2018-03-30] MEDS: METHYLPREDNISOLONE 125 MG INJ IV SCH ×2 (05:28→17:33)
[2018-03-30] MEDS: NA CHLORIDE 0.9% 1,000 ML IV SCH (05:29)
[2018-03-30] MEDS: ARFORMOTEROL TARTRATE 15 MCG/2 ML VIAL.NEB NEB SCH ×2 (10:25→19:44)
--- NOTE | 2018-03-30 10:30 | P.CNS ---
Date of Consult: 03/30/18 Reason for Consult: COPD exacerbation Chief Complaint: COPD exacerbation History of Present Illness: Patient is 77 years of age with terminal COPD admitted with a 3 day history of increasing shortness of breath chest congestion patient is currently doing better is compliant with his Symbicort and Spiriva in addition he uses nebulizers denies any fever chills or chest pain or lower extremity edema Allergies hydromorphone HCl [From Dilaudid] Adverse Reaction (Severe, Verified 03/28/18 21 :04) Itching Home Medications: Acetaminophen with Codeine [Acetaminophen-Cod #3 Tablet] 1 each PO Q8HP PRN Fluticasone [Flonase 50MCG Nasal [place]*] 1 sprays NS BID 12/23/17 Levocetirizine Dihydrochloride [24Hr Allergy Relief] 5 mg PO BEDTIME 12/23/17 Pantoprazole [Protonix Tab*] 40 mg PO DAILY 12/23/17 Tamsulosin [Flomax*] 0.4 mg PO BID 12/23/17 clonazePAM [Clonazepam] 0.5 mg PO BIDP PRN 12/23/17 Albuterol Sulfate [Proair Hfa] 2 puff IH Q6HP PRN #1 hfa.aer.ad 12/25/17 Budesonide/Formoterol Fumarate [Symbicort 160-4.5 Mcg Inhaler] 2 puff IH BID #1 hfa.aer.ad 12/25/17 Tiotropium [place] [Spiriva] 1 spray IH DAILY #1 cap.w.dev 12/25/17 Ipratropium/Albuterol Sulfate [Iprat-Albut 0.5-3(2.5) mg/3 ml] 1 inh NEB QID PRN 03/28/18 - Past Medical/Surgical History Diabetic: No -: Allergic rhinitis -: COPD -: Pulmonary embolism -: Gastroesophageal reflux disease -: Benign prostatic hypertrophy -: Rib surgery -: appendectomy -: Pulmonary embolectomy - Family History Father Medical History: GI disease Mother Medical History: Heart disease Sister Medical History: Heart disease - Social History Smoking Status: Current some day smoker Alcohol use: No CD- Drugs: No Caffeine use: Yes Place of Residence: Home Review of Systems 10-point ROS is otherwise unremarkable General: Weakness Respiratory: Shortness of Breath Physical Examination Temp Pulse Resp BP Pulse Ox 97.9 F 100 H 22 H 134/70 92 03/30/18 08:00 03/30/18 08:00 03/30/18 08:00 03/30/18 08:00 03/30/18 08:00 General: Alert, Oriented x3 HEENT: Atraumatic Neck: Supple Respiratory: Clear to auscultation bilaterally, Diminished, Expiratory wheezes Cardiovascular: No edema, Regular rate/rhythm, Normal S1 S2 Gastrointestinal: Normal bowel sounds, Soft and benign - Problems (1) COPD exacerbation Onset Date: 10/25/15 Current Visit: No Status: Acute Plan: Patient is 77 years of age well known to me with a history of COPD admitted with an exacerbation chest x-ray shows hyperinflated lung field no evidence of clinical sepsis he is feeling better continue with bronchodilators blood gases oxygenation satisfactory reduced Solu-Medrol to 40 mg IV q. 8 aggressive bronchodilator therapy possible discharge tomorrow patient is not currently smoking quit smoking a while ago and levofloxacin Dc BiPAP
[2018-03-30] MEDS: GUAIFENESIN/DM 5 ML UCUP PO PRN (12:00)
[2018-03-30] MEDS: levoFLOXacin 500 MG TAB PO SCH (12:02)
--- NOTE | 2018-03-30 13:09 | P.PN ---
Subjective Date of Service: 03/30/18 Chief Complaint: COPD exacerbation Subjective: No new changes, No C/O voiced, Improving Patient seen and examined at bedside. No family at bedside. Chart reviewed and Case discussed with nursing staff. Patient reports feeling better. No longer on BiPAP, using 2 L oxygen via nasal cannula. States that he does not use oxygen at home even though he does have oxygen at home. His lung doctor is in [place]. Review of Systems As noted Physical Examination - Vital Signs Temperature: 97.4 F Blood Pressure: 111/64 Pulse: 103 Respirations: 20 Pulse Ox (%): 91 - Physical Exam General: Alert, In no apparent distress, Oriented x3 HEENT: Atraumatic, PERRLA, EOMI Neck: Supple, JVD not distended Respiratory: Crackles/rales, Expiratory wheezes, Inspiratory wheezes Cardiovascular: Regular rate/rhythm, Normal S1 S2 Gastrointestinal: Normal bowel sounds, No tenderness Musculoskeletal: No tenderness Integumentary: No rashes Neurological: Normal speech, Normal tone, Normal affect Lymphatics: No axilla or inguinal lymphadenopathy - Studies Medications List Reviewed: Yes Assessment And Plan - Plan - Problems (Diagnosis) (1) Acute and chronic respiratory failure Onset Date: 06/18/17 Current Visit: No Status: Acute Qualifiers: (2) COPD exacerbation Onset Date: 10/25/15 Current Visit: No Status: Acute (3) BPH (benign prostatic hyperplasia) Current Visit: No Status: Chronic Qualifiers: (4) Congestive heart failure Onset Date: 12/24/17 Current Visit: No Status: Chronic Qualifiers: (5) GERD (gastroesophageal reflux disease) Current Visit: No Status: Chronic Qualifiers: (6) Seasonal allergic rhinitis Current Visit: No Status: Chronic Qualifiers: - Plan Plan: 1. Continue with albuterol and Atrovent nebs 2. Continue with IV steroids. Started levofloxacin 3. Pulmonary consultation, recommendations appreciated 4. Additional supportive care as necessary 5. GI and DVT prophylaxis Disposition: Pending symptomatic improvement. Likely discharge home tomorrow on oral steroids and antibiotics. Physician Review: Patient Assessed, Agree with Above Assessment and Plan Time Spent Managing PTS Care (In Minutes): 35
[2018-03-30] MEDS: TEMAZEPAM 15 MG CAP PO SCH (20:40)
[2018-03-31] MEDS: METHYLPREDNISOLONE 125 MG INJ IV SCH ×2 (00:38→09:58)
[2018-03-31] MEDS: IPRATROPIUM BROM 0.5MG/2.5ML NEB SCH ×2 (01:10→08:18)
[2018-03-31] MEDS: ALBUTEROL 2.5 MG/3 ML NEB SOL NEB SCH ×2 (01:10→08:18)
[2018-03-31] MEDS: ARFORMOTEROL TARTRATE 15 MCG/2 ML VIAL.NEB NEB SCH (08:18)
[2018-03-31] MEDS: GUAIFENESIN/DM 5 ML UCUP PO PRN (09:58)
[2018-03-31] MEDS: levoFLOXacin 500 MG TAB PO SCH (09:58)
[2018-03-31 12:08] VITALS: O2SAT 92
[2018-03-31 15:23] VITALS: BP 136/78; TEMP 97.6
--- NOTE | 2018-03-31 18:00 | P.DS ---
Admission Date: 03/28/18 Discharge Date: 03/31/18 Disposition: ROUTINE DISCHARGE Discharge Condition: FAIR Reason for Admission: COPD exacerbation Consultations: Dr. Michelle, Pulmonology Brief History of Present Illness: Patient is a 77-year-old gentleman who is been in the hospital on numerous occasions with acute COPD exacerbation. His last admission he was intubated. Currently he is on BiPAP. He was brought into the emergency room because he was short of breath. His breathing is been getting worse over the last 3 days. His family called EMS and he was brought into the emergency room. He was started on BiPAP and given nebs, steroids and antibiotics. Clinically he appears to be doing a little better. He remains on BiPAP support. At this time , he will be admitted to the floor for further evaluation. Hospital Course: Patient was admitted. He was started on albuterol and Atrovent nebs. He was started on IVF steroids and oral levothyroxine. Pulmonology was consulted. He was weaned off of his BiPAP and then eventually oxygen. At the time of discharge, he was satting well on room air, was in no respiratory distress, was hemodynamically stable and his symptoms had resolved. His symptoms and diagnosis was explained to the patient, all questions were answered and he verbalized understanding. He was discharged with instructions to follow up with his fish filleter. He was also discharged with a prescription for levofloxacin and oral steroids. Vital Signs/Physical Exam: Temp Pulse Resp BP Pulse Ox 97.6 F 100 H 18 136/78 92 03/31/18 12:00 03/31/18 12:00 03/31/18 12:00 03/31/18 12:00 03/31/18 12:00 General: Alert, In no apparent distress, Oriented x3 HEENT: Atraumatic, PERRLA, EOMI Neck: Supple, JVD not distended Respiratory: Normal air movement, Expiratory wheezes Cardiovascular: Regular rate/rhythm, Normal S1 S2 Gastrointestinal: Normal bowel sounds, No tenderness Musculoskeletal: No tenderness Integumentary: No rashes Neurological: Normal speech, Normal tone, Normal affect Lymphatics: No axilla or inguinal lymphadenopathy Laboratory Data at Discharge: WBC 5.3 K/uL (4.3-10.9) D 03/29/18 04:34 Hgb 14.7 g/dL (13.6-17.9) 03/29/18 04:34 Hct 42.9 % (39.6-49.0) 03/29/18 04:34 Plt Count 274 K/uL (152-406) 03/29/18 04:34 PT 13.2 SECONDS (9.5-12.5) H 03/28/18 17:15 INR 1.12 03/28/18 17:15 APTT 38.9 SECONDS (24.3-36.9) H 03/28/18 17:15 Sodium 139 mmol/L (136-145) 03/29/18 04:34 Potassium 4.8 mmol/L (3.5-5.1) 03/29/18 04:34 BUN 25 mg/dL (7-18) H 03/29/18 04:34 Creatinine 0.90 mg/dL (0.55-1.3) 03/29/18 04:34 Glucose 129 mg/dL (74-106) H 03/29/18 04:34 Magnesium 2.0 mg/dL (1.8-2.4) 03/28/18 17:15 Total Bilirubin 0.8 mg/dL (0.2-1.0) 03/29/18 04:34 AST 15 U/L (15-37) 03/29/18 04:34 ALT 22 U/L (12-78) 03/29/18 04:34 Alkaline Phosphatase 87 U/L (45-117) 03/29/18 04:34 Troponin I < 0.02 ng/mL (0.0-0.045) 03/28/18 17:15 Lipase 113 U/L (73-393) 03/28/18 17:15 Home Medications: Acetaminophen with Codeine [Acetaminophen-Cod #3 Tablet] 1 each PO Q8HP PRN Fluticasone [Flonase 50MCG Nasal [place]*] 1 sprays NS BID 12/23/17 Levocetirizine Dihydrochloride [24Hr Allergy Relief] 5 mg PO BEDTIME 12/23/17 Pantoprazole [Protonix Tab*] 40 mg PO DAILY 12/23/17 Tamsulosin [Flomax*] 0.4 mg PO BID 12/23/17 clonazePAM [Clonazepam] 0.5 mg PO BIDP PRN 12/23/17 Albuterol Sulfate [Proair Hfa] 2 puff IH Q6HP PRN #1 hfa.aer.ad 12/25/17 Budesonide/Formoterol Fumarate [Symbicort 160-4.5 Mcg Inhaler] 2 puff IH BID #1 hfa.aer.ad 12/25/17 Tiotropium [place] [Spiriva] 1 spray IH DAILY #1 cap.w.dev 12/25/17 Ipratropium/Albuterol Sulfate [Iprat-Albut 0.5-3(2.5) mg/3 ml] 1 inh NEB QID PRN 03/28/18 levoFLOXacin [Levaquin*] 500 mg PO DAILY #5 tab 03/30/18 predniSONE [Deltasone] 20 mg PO BID #14 tab 03/30/18 New Medications: levoFLOXacin [Levaquin*] 500 mg PO DAILY #5 tab predniSONE [Deltasone] 20 mg PO BID #14 tab Patient Discharge Instructions: Please follow up with a fish filleter in 1-2 weeks. Please follow up with the primary care physician in 1 week Diet: Regular Activity: Ad dalton Followup: Pavel Michelle MD [ACTIVE - CAN ADMIT] - 1 Week (Call for appointment) Physician Review: Patient Assessed, Agree with Above Assessment and Plan Time spent managing pt's care (in minutes): 45
== END 2018-03-31 14:29 | disposition home or self-care (01) | DRG 190 ==
LOC: ER 16:53 → ERHOLD 18:49 → 2ND 19:49
PROVIDERS: ADMIT Hospitalist; ATTEND Family Medicine
DX: J44.1 Chronic obstructive pulmonary disease with (acute) exacerbation (principal); J96.20 Acute and chronic respiratory failure, unspecified whether with hypoxia or hypercapnia; I50.32 Chronic diastolic (congestive) heart failure; J30.9 Allergic rhinitis, unspecified; K21.9 Gastro-esophageal reflux disease without esophagitis; N40.0 Benign prostatic hyperplasia without lower urinary tract symptoms; I50.9 Heart failure, unspecified; J30.2 Other seasonal allergic rhinitis; Z87.891 Personal history of nicotine dependence
CPT/HCPCS: 36415; 71045; 80053; 80076; 81003; 82550; 82553; 82805; 83690; 83735; 83880; 84484; 85025; 85379; 85610; 85730; 87040; 87070; 87205; 87804; 93005; 94640; 94660; 94760; 96365; 96366; 96375; 99285; J2405; J2930; J7030; J7605

== ENCOUNTER 2018-04-26 11:55 | Inpatient (IN) | payer MEDICARE ==
[2018-04-26 12:21] LABS: Absolute Lymphocytes (CBC) 2.8 K/uL (0.7-4.9); Absolute Neutrophil 6.9 K/uL (1.8-8.0); Basophils % 0.7 % (0-1.3); Eosinophils % 7.7 % (0-4.4); Hematocrit 44.4 % (39.6-49.0); Lymphocytes % 23.9 % (15.3-44.8); MCH 31.4 pg (27.0-35.0); MCV 91.4 fL (80-100); MPV 8.6 fL (7.6-11.3); Monocytes % 8.4 % (3.3-12.3); RBC Red Blood Cell Count 4.86 M/uL (4.33-5.43)
[2018-04-26] MEDS ORDERED: NA CHLORIDE 0.9% 500 ML ONE (12:23)
[2018-04-26 12:42] LABS: BUN Blood Urea Nitrogen 15 mg/dL (7-18); Bicarbonate 28 mmol/L (21-32); Glucose Level 112 mg/dL (74-106); NT PRO-BNP 41 pg/mL (<450); Potassium 4.5 mmol/L (3.5-5.1); Sodium Level 142 mmol/L (136-145); Troponin (Emerg Dept Use Only) < 0.02 ng/mL (0.0-0.045)
--- NOTE | 2018-04-26 13:22 | RAD REPORT ---
EXAM DESCRIPTION: Georgina Single View04/26/2018 1:11 pm CLINICAL HISTORY: Cough COMPARISON: March 2018 FINDINGS: The lungs are markedly hyperaerated with chronic interstitial opacities. The lungs appear clear of acute infiltrate. The heart is normal size IMPRESSION: COPD without visualization of an acute abnormality
--- NOTE | 2018-04-26 13:43 | ER ---
Nurse's Notes [facility] Name: Raphael Gilbert Age: 77 yrs Sex: Male : 1940 Arrival Date: 04/26/2018 Time: 11:56 Bed 4 Private MD: Diagnosis: Chronic obstructive pulmonary disease with (acute) exacerbation Presentation: 04/26 11:52 Presenting complaint: EMS states: SOB x 2 days, pt was in tripod position on EMS sv arrival. 84% RA, A\T\A tx started and placed on CPAP. Transition of care: patient was not received from another setting of care. Onset of symptoms was April 24, 2018. Risk Assessment: Do you want to hurt yourself or someone else? Patient reports no desire to harm self or others. Initial Sepsis Screen: Does the patient meet any 2 criteria? RR > 20 per min. HR > 90 bpm. Yes Does the patient have a suspected source of infection? No. Patient's initial sepsis screen is negative. Care prior to arrival: Medication(s) given: Albuterol Neb x 1, Atrovent Neb x 1, Solumedrol 125 mg IVP given. IV initiated. 20 GA, in the left antecubital area, Oxygen administered. via CPAP or BiPAP. 11:52 Method Of Arrival: EMS: [facility] sv 11:52 Acuity: MEGHAN 1 sv Triage Assessment: 11:52 General: Appears distressed, uncomfortable, Behavior is cooperative, appropriate for sv age. Pain: Denies pain. EENT: No signs and/or symptoms were reported regarding the EENT system. Neuro: Level of Consciousness is awake, alert, obeys commands, Oriented to person, place, time, situation, Moves all extremities. Cardiovascular: Denies chest pain, Patient's skin is warm and dry. Rhythm is sinus tachycardia. Respiratory: Respiratory effort is even, labored, Respiratory pattern is symmetrical, tachypnea barrel chest noted. Derm: Skin is normal. Historical: - Allergies: 12:15 Dilaudid; sv - PMHx: 12:12 Hypertension; COPD; sv 12:15 PE; sv - PSHx: 12:15 Appendectomy; Blood clot removed from lung; sv - Immunization history:: Adult Immunizations unknown. - Family history:: not pertinent. - Social history:: Smoking status: unknown. - Ebola Screening: : No symptoms or risks identified at this time. - Hospitalizations: : No recent hospitalization is reported. Screenin:13 Abuse screen: Denies threats or abuse. Denies injuries from another. Nutritional sv screening: No deficits noted. Tuberculosis screening: No symptoms or risk factors identified. Fall Risk None identified. Assessment: 13:16 Reassessment: Patient appears in no apparent distress at this time. Patient and/or sv family updated on plan of care and expected duration. Pain level reassessed. Patient is alert, oriented x 3, equal unlabored respirations, skin warm/dry/pink. Patient states symptoms have improved. Respiratory: Respiratory effort is even, unlabored, Respiratory pattern is symmetrical, tachypnea. 14:17 Reassessment: Patient appears in no apparent distress at this time. Patient and/or sv family updated on plan of care and expected duration. Pain level reassessed. Patient is alert, oriented x 3, equal unlabored respirations, skin warm/dry/pink. Patient states feeling better. Patient states symptoms have improved. 14:19 Reassessment: Marlene FILLER SHREDDING MACHINE LOADER at bedside to obtain ABG. sv 15:49 Reassessment: Patient appears in no apparent distress at this time. Patient and/or sv family updated on plan of care and expected duration. Pain level reassessed. Patient is alert, oriented x 3, equal unlabored respirations, skin warm/dry/pink. Patient states feeling better. Patient states symptoms have improved. Vital Signs: 12:03 BP 133 / 89; Pulse 126 MON; Resp 32; Pulse Ox 100% on 50% BiPAP; sv 12:30 BP 139 / 81; Pulse 116; Resp 22; Pulse Ox 100% on 50% BiPAP; sv 13:00 BP 125 / 86; Pulse 119; Resp 26; Pulse Ox 100% on 50% BiPAP; sv 13:30 BP 121 / 73; Pulse 112; Resp 22; Pulse Ox 100% on 50% BiPAP; sv 14:00 BP 122 / 75; Pulse 110; Resp 22; Pulse Ox 100% on 50% BiPAP; sv 14:30 BP 113 / 84; Pulse 116; Resp 20; Pulse Ox 92% on 35% BiPAP; sv 15:00 BP 122 / 77; Pulse 109; Resp 22; Pulse Ox 97% on 1 lpm NC; sv 15:30 BP 121 / 80; Pulse 110; Resp 20; Temp 98; Pulse Ox 96% on 1 lpm NC; sv 16:10 BP 126 / 81; Pulse 108; Resp 20; Pulse Ox 97% on 1 lpm NC; sv 12:03 Sinus tachycardia sv ED Course: 11:52 compliance monitor on. Pulse ox on. NIBP on. sv 11:52 Patient placed in an exam room, on a stretcher, on oxygen, on residential monitor, on pulse sv oximetry. 11:52 Initial lab(s) drawn, by me, sent to lab. Maintain EMS IV. Dressing intact. Good blood sv return noted. Site clean \T\ dry. Gauge \T\ site: 20G L AC. Flushed left antecubital with 5 ml normal saline. 11:56 Patient arrived in ED. hb 11:57 Santosh Salgado MD is Attending Physician. rn 12:00 Inserted saline lock: 20 gauge in left forearm, using aseptic technique. Blood hb collected. 12:07 Chari Hernandes RN is Primary Nurse. sv 12:10 Triage completed. sv 12:10 Patient has correct armband on for positive identification. Bed in low position. Call hb light in reach. Side rails up X2. 12:18 EKG done, by laboratory mechanical technician. reviewed by Santosh Salgado MD. dt2 12:55 X-ray completed. Portable x-ray completed in exam room. Patient tolerated procedure ag1 well. 13:00 XRAY CXR (1 view) In Process Unspecified. EDMS 13:24 BIPAP Sent. sv 13:41 Carline Massey MD is Hospitalizing Provider. rn 14:38 ABG Sent. sv 15:48 No provider procedures requiring assistance completed. Patient admitted, IV remains in sv place. intact. Administered Medications: 12:08 Drug: Xopenex (3) 1.25 mg Route: Inhalation; sv 12:08 Drug: Magnesium Sulfate 1 grams Route: IVPB; Infused Over: 1 hrs; Site: left sv antecubital; 13:00 Follow up: Response: No adverse reaction; IV Status: Completed infusion; IV Intake: sv 100ml 12:08 Drug: NS 0.9% 500 ml Route: IV; Rate: bolus; Site: left antecubital; sv 12:35 Follow up: Response: No adverse reaction; IV Status: Completed infusion; IV Intake: sv 500ml Intake: 12:35 IV: 500ml; Total: 500ml. sv 13:00 IV: 100ml; Total: 600ml. sv Outcome: 13:42 Decision to Hospitalize by Provider. rn 15:48 Admitted to Tele accompanied by tech, via stretcher, room 421, with oxygen, with chart, sv Report called to Hilda CARREON 15:48 Condition: stable 15:48 Instructed on the need for admit. 16:21 Patient left the ED. sv Signatures: Dispatcher [employer] Chari Clark RN RN Santosh Salgado MD MD rn Gallaway, Ashley ag1 Danay Walsh RN RN France Saldivar dt2 Corrections: (The following items were deleted from the chart) 12:15 12:12 Allergies: No Known Allergies; sv sv 12:16 11:52 Care prior to arrival: Medication(s) given: Albuterol Neb x 1, Atrovent Neb x 1, sv IV initiated. 20 GA, in the left antecubital area, Oxygen administered. via CPAP or BiPAP, sv
--- NOTE | 2018-04-26 13:44 | EDPHYS ---
Physician Documentation [facility] Name: Raphael Gilbert Age: 77 yrs Sex: Male : 1940 Arrival Date: 04/26/2018 Time: 11:56 Bed 4 Private MD: ED Physician Santosh Salgado HPI: 04/26 12:00 This 77 yrs old Male presents to ER via Unassigned with complaints of sob. rn 12:00 The patient has shortness of breath at rest, with light activity. Onset: The rn symptoms/episode began/occurred 2 day(s) ago. Duration: The symptoms are continuous. The patient's shortness of breath is aggravated by coughing, exertion, light activity, talking, walking. Severity of symptoms: At their worst the symptoms were severe in the emergency department the symptoms are unchanged. The patient has experienced similar episodes in the past. Reports increased sob for 2-3 days, worse since last night, not improving with breathing treatment/inhaler, no fever, no chest pain, + cough. Improved slightly after EMS administered solumedrol/albuterol and atrovent. . Historical: - Allergies: 12:15 Dilaudid; sv - PMHx: 12:12 Hypertension; COPD; sv 12:15 PE; sv - PSHx: 12:15 Appendectomy; Blood clot removed from lung; sv - Immunization history:: Adult Immunizations unknown. - Family history:: not pertinent. - Social history:: Smoking status: unknown. - Ebola Screening: : No symptoms or risks identified at this time. - Hospitalizations: : No recent hospitalization is reported. ROS: 12:00 Constitutional: Negative for fever, chills, and weight loss, Eyes: Negative for injury, rn pain, redness, and discharge, Neck: Negative for injury, pain, and swelling, Cardiovascular: Negative for chest pain, palpitations, and edema, Respiratory: + sob and cough Abdomen/GI: Negative for abdominal pain, nausea, vomiting, diarrhea, and constipation, MS/Extremity: Negative for injury and deformity, Skin: Negative for injury, rash, and discoloration, Neuro: + generalized weakness Exam: 12:00 Constitutional: This is a well developed, well nourished patient who is awake, alert, rn on CPAP with respiratory distress Head/Face: Normocephalic, atraumatic. Eyes: Pupils equal round and reactive to light, extra-ocular motions intact. Lids and lashes normal. Conjunctiva and sclera are non-icteric and not injected. Cornea within normal limits. Periorbital areas with no swelling, redness, or edema. ENT: + dry MM, no stridor Cardiovascular: tachycardic, regular, no murmur Respiratory: + poor inspiratory air flow bilateral lungs, faint exp wheezing Abdomen/GI: soft, non-tender MS/ Extremity: Pulses equal, no cyanosis. Neurovascular intact. Full, normal range of motion. Equal circumference. Neuro: Awake and alert, GCS 15, oriented to person, place, and situation. Cranial nerves II-XII grossly intact. Motor strength 5/5 in all extremities. Sensory grossly intact. Vital Signs: 12:03 BP 133 / 89; Pulse 126 MON; Resp 32; Pulse Ox 100% on 50% BiPAP; sv 12:30 BP 139 / 81; Pulse 116; Resp 22; Pulse Ox 100% on 50% BiPAP; sv 13:00 BP 125 / 86; Pulse 119; Resp 26; Pulse Ox 100% on 50% BiPAP; sv 13:30 BP 121 / 73; Pulse 112; Resp 22; Pulse Ox 100% on 50% BiPAP; sv 14:00 BP 122 / 75; Pulse 110; Resp 22; Pulse Ox 100% on 50% BiPAP; sv 14:30 BP 113 / 84; Pulse 116; Resp 20; Pulse Ox 92% on 35% BiPAP; sv 15:00 BP 122 / 77; Pulse 109; Resp 22; Pulse Ox 97% on 1 lpm NC; sv 15:30 BP 121 / 80; Pulse 110; Resp 20; Temp 98; Pulse Ox 96% on 1 lpm NC; sv 16:10 BP 126 / 81; Pulse 108; Resp 20; Pulse Ox 97% on 1 lpm NC; sv 12:03 Sinus tachycardia sv MDM: 11:57 Patient medically screened. rn 13:41 Differential diagnosis: Anemia Chronic Obstructive Pulmonary Disease pneumonia, rn Pneumothorax pulmonary edema, reactive airway disease. Data reviewed: vital signs, nurses notes, lab test result(s), EKG, radiologic studies, plain films, and as a result, I will admit patient. Counseling: I had a detailed discussion with the patient and/or guardian regarding: the historical points, exam findings, and any diagnostic results supporting the discharge/admit diagnosis, lab results, radiology results, the need for further work-up and treatment in the hospital. Response to treatment: the patient's symptoms have markedly improved after treatment, and as a result, I will admit patient. Admission orders: after a detailed discussion of the patient's condition and case, the admit orders are written by me. 04/26 11:59 Order name: Blood Culture Adult (2) rn 04/26 11:59 Order name: BMP; Complete Time: 12:58 rn 04/26 11:59 Order name: CBC with Diff; Complete Time: 12:58 rn 04/26 11:59 Order name: NT PRO-BNP; Complete Time: 12:58 rn 04/26 11:59 Order name: Troponin (emerg Dept Use Only); Complete Time: 12:58 rn 04/26 11:59 Order name: Flu; Complete Time: 12:58 rn 04/26 11:59 Order name: XRAY CXR (1 view); Complete Time: 13:38 rn 04/26 11:59 Order name: BIPAP 04/26 11:59 Order name: Procalcitonin; Complete Time: 13:38 rn 04/26 11:59 Order name: Lactate; Complete Time: 12:58 rn 04/26 14:15 Order name: ABG sv 04/26 14:55 Order name: ABG Arterial Blood Gas EDNV 04/26 11:59 Order name: EKG; Complete Time: 12:00 rn 04/26 11:59 Order name: Cardiac monitoring; Complete Time: 12:01 rn 04/26 11:59 Order name: EKG - Nurse/Tech; Complete Time: 12:08 rn 04/26 11:59 Order name: IV Saline Lock; Complete Time: 12:08 rn 04/26 11:59 Order name: Labs collected and sent; Complete Time: 12:08 rn 04/26 11:59 Order name: O2 Per Protocol; Complete Time: 12:02 rn 04/26 11:59 Order name: O2 Sat Monitoring; Complete Time: 12:02 rn Administered Medications: 12:08 Drug: Xopenex (3) 1.25 mg Route: Inhalation; sv 12:08 Drug: Magnesium Sulfate 1 grams Route: IVPB; Infused Over: 1 hrs; Site: left sv antecubital; 13:00 Follow up: Response: No adverse reaction; IV Status: Completed infusion; IV Intake: sv 100ml 12:08 Drug: NS 0.9% 500 ml Route: IV; Rate: bolus; Site: left antecubital; sv 12:35 Follow up: Response: No adverse reaction; IV Status: Completed infusion; IV Intake: sv 500ml Disposition: 13:41 Critical Care:. rn Disposition: 04/26/18 13:42 Hospitalization ordered by Carline Massey for Inpatient Admission. Preliminary diagnosis is Chronic obstructive pulmonary disease with (acute) exacerbation. - Bed requested for Telemetry/MedSurg (Inpatient). - Status is Inpatient Admission. sv - Condition is Stable. - Problem is an acute exacerbation. - Symptoms have improved. UTI on Admission? No Critical care time excluding procedures: 13:41 Critical care time: Bedside Care: 25 minutes, Consultation: 5 minutes. Total time: 30 rn minutes Signatures: Dispatcher [employer] Chari Clark RN RN sv Woody, Diana, RN RN dw Nieto, Roman, MD MD corporate strategy intern: (The following items were deleted from the chart) 12:15 12:12 Allergies: No Known Allergies; sv sv 15:18 13:42 Hospitalization Ordered by Carline Massey MD for Inpatient Admission. Preliminary dw diagnosis is Chronic obstructive pulmonary disease with (acute) exacerbation. Bed requested for Telemetry/MedSurg (Inpatient). Status is Inpatient Admission. Condition is Stable. Problem is an acute exacerbation. Symptoms have improved. UTI on Admission? No. rn 16:21 15:18 04/26/2018 13:42 Hospitalization Ordered by Carline Massey MD for Inpatient sv Admission. Preliminary diagnosis is Chronic obstructive pulmonary disease with (acute) exacerbation. Bed requested for Telemetry/MedSurg (Inpatient). Status is Inpatient Admission. Condition is Stable. Problem is an acute exacerbation. Symptoms have improved. UTI on Admission? No. dw
[2018-04-26 14:54] LABS: Arterial Blood Carboxyhemoglob 1.1 % (0-1.5); Blood Gas Oxyhemoglobin 96.1 % (94-97); Blood O2 Saturation 97.7 % (92-98.5)
[2018-04-26 16:35] VITALS: BMI 18.1
[2018-04-26] MEDS ORDERED: ACETAMINOPHEN 500 MG TAB PO PRN (16:35)
[2018-04-26] MEDS ORDERED: ONDANSETRON 4 MG/2 ML VIAL IV PRN (16:35)
--- NOTE | 2018-04-26 17:31 | P.HP ---
Patient History Date of Service: 04/26/18 Allergies hydromorphone HCl [From Dilaudid] Adverse Reaction (Severe, Verified 03/28/18 21 :04) Itching Home Medications: Albuterol Sulfate [Proair Hfa] 2 puff IH Q6H PRN 04/26/18 Budesonide/Formoterol Fumarate [Symbicort 160-4.5 Mcg Inhaler] 2 puff IH BID Ipratropium/Albuterol Sulfate [Iprat-Albut 0.5-3(2.5) mg/3 ml] 1 inh NEB QID PRN 04/26/18 Levocetirizine Dihydrochloride [24Hr Allergy Relief] 5 mg PO BEDTIME 04/26/18 Pantoprazole Sodium [Protonix] 40 mg PO DAILY 04/26/18 Tamsulosin HCl [Flomax] 1 tab PO BID 04/26/18 Tiotropium [Spiriva Handihaler] 18 mcg IH DAILY 04/26/18 clonazePAM [Klonopin] 0.5 mg PO BIDP PRN 04/26/18 - Past Medical/Surgical History Has patient received pneumonia vaccine in the past: Yes Diabetic: No -: Allergic rhinitis -: COPD -: Pulmonary embolism -: Gastroesophageal reflux disease -: Benign prostatic hypertrophy -: Rib surgery -: appendectomy -: Pulmonary embolectomy - Family History Father -: GI disease Mother -: Heart disease Sister -: Heart disease - Social History Smoking Status: Former smoker Alcohol use: Yes CD- Drugs: No Caffeine use: Yes Place of Residence: Home Physical Examination - Vital Signs Temperature: 97.1 F Blood Pressure: 126/81 Pulse: 108 Respirations: 20 Pulse Ox (%): 95 - Studies Laboratory Data (last 24 hrs) 04/26/18 12:00: WBC 11.6 H, Hgb 15.3, Hct 44.4, Plt Count 283 04/26/18 12:00: Sodium 142, Potassium 4.5, BUN 15, Creatinine 0.92, Glucose 112 H Microbiology Data (last 24 hrs): 04/26/18 12:17 Nasopharnyx Influenza Type A Antigen Screen - Final 04/26/18 12:17 Nasopharnyx Influenza Type B Antigen Screen - Final Assessment and Plan - Advance Directives Does patient have a Living Will: No Does patient have a Durable POA for Healthcare: No
[2018-04-26] MEDS ORDERED: clonazePAM 0.5 MG TAB PO PRN (17:39)
--- NOTE | 2018-04-26 17:39 | P.HP ---
Certification for Inpatient Patient admitted to: Inpatient With expected LOS: >2 Midnights Patient will require the following post-hospital care: None Practitioner: I am a practitioner with admitting privileges, knowledge of patient current condition, hospital course, and medical plan of care. Services: Services provided to patient in accordance with Admission requirements found in Title 42 Section 412.3 of the Code of Federal Regulations Patient History Date of Service: 04/26/18 History of Present Illness: This is a 77-year-old male with significant past medical history of COPD, said CHF, GERD who presented to the ED which shortness of breath has been getting progressively worse for past couple of days. Patient was recently admitted to the hospital for similar symptoms and was treated for COPD exacerbation. Patient at that time was placed on BiPAP. The time before that patient was intubated for COPD exacerbation. Patient denies having any fever chills nausea vomiting at this time. Aside from shortness of breath and coughing he does not have any other complaints to offer. Patient states that When he presented to the ER he was tachypneic and was having hypoxia and thus was placed on BiPAP. Medicine team was consulted to admit the patient for further care. Allergies hydromorphone HCl [From Dilaudid] Adverse Reaction (Severe, Verified 03/28/18 21 :04) Itching Home Medications: Albuterol Sulfate [Proair Hfa] 2 puff IH Q6H PRN 04/26/18 Budesonide/Formoterol Fumarate [Symbicort 160-4.5 Mcg Inhaler] 2 puff IH BID Ipratropium/Albuterol Sulfate [Iprat-Albut 0.5-3(2.5) mg/3 ml] 1 inh NEB QID PRN 04/26/18 Levocetirizine Dihydrochloride [24Hr Allergy Relief] 5 mg PO BEDTIME 04/26/18 Pantoprazole Sodium [Protonix] 40 mg PO DAILY 04/26/18 Tamsulosin HCl [Flomax] 1 tab PO BID 04/26/18 Tiotropium [Spiriva Handihaler] 18 mcg IH DAILY 04/26/18 clonazePAM [Klonopin] 0.5 mg PO BIDP PRN 04/26/18 - Past Medical/Surgical History Has patient received pneumonia vaccine in the past: Yes Diabetic: No -: Allergic rhinitis -: COPD -: Pulmonary embolism -: Gastroesophageal reflux disease -: Benign prostatic hypertrophy -: Rib surgery -: appendectomy -: Pulmonary embolectomy - Family History Father -: GI disease Mother -: Heart disease Sister -: Heart disease - Social History Smoking Status: Former smoker Alcohol use: Yes CD- Drugs: No Caffeine use: Yes Place of Residence: Home Review of Systems 10-point ROS is otherwise unremarkable Physical Examination - Vital Signs Temperature: 97.1 F Blood Pressure: 126/81 Pulse: 108 Respirations: 20 Pulse Ox (%): 95 - Physical Exam General: Alert, Acute distress, Other (On BIPAP) HEENT: Atraumatic, PERRLA, Mucous membr. moist/pink, EOMI, Sclerae nonicteric Neck: Supple, 2+ carotid pulse no bruit, No LAD, Without JVD or thyroid abnormality Respiratory: Normal air movement, Expiratory wheezes, Inspiratory wheezes Cardiovascular: Regular rate/rhythm, Normal S1 S2 Gastrointestinal: Normal bowel sounds, No tenderness Musculoskeletal: No tenderness Integumentary: No rashes Neurological: Normal gait, Normal speech, Normal strength at 5/5 x4 extr, Normal tone, Normal affect Lymphatics: No axilla or inguinal lymphadenopathy - Studies Laboratory Data (last 24 hrs) 04/26/18 12:00: WBC 11.6 H, Hgb 15.3, Hct 44.4, Plt Count 283 04/26/18 12:00: Sodium 142, Potassium 4.5, BUN 15, Creatinine 0.92, Glucose 112 H Microbiology Data (last 24 hrs): 04/26/18 12:17 Nasopharnyx Influenza Type A Antigen Screen - Final 04/26/18 12:17 Nasopharnyx Influenza Type B Antigen Screen - Final Assessment and Plan - Problems (Diagnosis) (1) Acute and chronic respiratory failure Onset Date: 06/18/17 Current Visit: No Status: Acute Plan: Hypoxic RF with RR in 30 and Oxygen sat at 70% on RA -BIPAP, Duonebs, Steriods. Wean BIPAP as tolerated -ABG ordered -Pulmonology consulted. Awaiting Reccs Qualifiers: Respiratory failure complication: hypoxia Qualified Code(s): J96.21 - Acute and chronic respiratory failure with hypoxia (2) COPD exacerbation Onset Date: 10/25/15 Current Visit: No Status: Acute Plan: COPD exacerbation -Duonebs, Steriods and BIPAP for now (3) BPH (benign prostatic hyperplasia) Onset Date: 04/01/18 Current Visit: No Status: Chronic Qualifiers: (4) Congestive heart failure Onset Date: 12/24/17 Current Visit: No Status: Chronic Qualifiers: Heart failure chronicity: unspecified (5) GERD (gastroesophageal reflux disease) Onset Date: 04/01/18 Current Visit: No Status: Chronic Qualifiers: Esophagitis presence: without esophagitis Qualified Code(s): K21.9 - Gastro -esophageal reflux disease without esophagitis - Plan Patient to be admitted to the medical-surgical floor for COPD exacerbation and acute respiratory failure. Currently on BiPAP. Will wean as tolerated. Pulmonology is consulted. Will follow recommendations at this time. Patient pending clinical improvement Discharge Plan: Home Plan to discharge in: 48 Hours - Advance Directives Does patient have a Living Will: No Does patient have a Durable POA for Healthcare: No - Code Status/Comfort Care Code Status Assessed: Yes Critical Care: No
--- NOTE | 2018-04-26 18:06 | EKG ---
Test Date: 2018-04-26 Test Time: 12:09:19 Rn Cvicu: ROSY MEASUREMENT RESULTS: Intervals: Rate: 126 MN: 136 QRSD: 88 QT: 300 QTc: 434 Barlow: P: 86 MN: 136 QRS: 40 T: 60 INTERPRETIVE STATEMENTS: Sinus tachycardia Otherwise normal ECG Compared to ECG 03/28/2018 17:00:23 Atrial abnormality no longer present Electronically Signed On 04-26-18 18:04:48 [employer]IC[employer] by Elver Brizuela
--- OUTSIDE RECORDS SUMMARY | 2018-04-26 18:55 | XMS REPORT ---
:1940 [facility] Address [address] [place] [address] Dr. Carlson [address] [place] [id number] Care Team Providers Name Role Phone Unavailable Unavailable Unavailable Problems This patient has no known problems. Allergies, Adverse Reactions, Alerts This patient has no known allergies or adverse reactions. Medications This patient has no known medications.
[2018-04-26 19:17] LABS: Urine Appearance CLEAR; Urine Bilirubin NEGATIVE (NEG); Urine Blood NEGATIVE (NEG); Urine Color YELLOW; Urine Glucose NEGATIVE (NEG); Urine Microscopic Reflex NO UMIC; Urine Protein NEGATIVE (NEG); Urine Specific Gravity 1.015 (1.005-1.030); Urine Urobilinogen 0.2 mg/dL (0.2-1.0); Urine pH 5.5 (5.0-7.0)
[2018-04-26] MEDS: LEVALBUTEROL 0.63 MG/3 ML NEB NEB SCH (19:25)
[2018-04-26] MEDS: IPRATROPIUM BROM 0.5MG/2.5ML NEB SCH (19:25)
[2018-04-26] MEDS ORDERED: ALBUTEROL 2.5 MG/3 ML NEB SOL NEB SCH (20:00)
[2018-04-26] MEDS: predniSONE 20 MG TAB PO SCH (20:39)
[2018-04-26] MEDS: TAMSULOSIN 0.4 MG SR CAP PO SCH (20:39)
[2018-04-26] MEDS ORDERED: [UNRECOGNIZED DRUG - REMARK] PO SCH (21:00)
[2018-04-27] MEDS: LEVALBUTEROL 0.63 MG/3 ML NEB NEB SCH ×2 (01:15→07:46)
[2018-04-27] MEDS: IPRATROPIUM BROM 0.5MG/2.5ML NEB SCH ×2 (01:15→07:46)
[2018-04-27 05:17] LABS: Absolute Lymphocytes (CBC) 0.5 K/uL (0.7-4.9); Absolute Monocytes 0.2 K/uL (0.1-1.3); Absolute Neutrophil 3.5 K/uL (1.8-8.0); Basophils % 0.2 % (0-1.3); Eosinophils % 0.1 % (0-4.4); Hematocrit 42.1 % (39.6-49.0); Lymphocytes % 12.7 % (15.3-44.8); MCH 31.4 pg (27.0-35.0); MCV 91.1 fL (80-100); MPV 9.1 fL (7.6-11.3); Monocytes % 3.6 % (3.3-12.3); RBC Red Blood Cell Count 4.62 M/uL (4.33-5.43)
[2018-04-27 05:42] LABS: Albumin 3.1 g/dL (3.4-5.0); Bilirubin Total 0.6 mg/dL (0.2-1.0); Magnesium 2.2 mg/dL (1.8-2.4); Phosphorus 3.1 mg/dL (2.5-4.9); Potassium 4.8 mmol/L (3.5-5.1); Protein, Total 6.3 g/dL (6.4-8.2)
[2018-04-27] MEDS ORDERED: PANTOPRAZOLE 40MG TABLET PO SCH (06:30)
[2018-04-27] MEDS: TAMSULOSIN 0.4 MG SR CAP PO SCH (08:30)
[2018-04-27] MEDS: predniSONE 20 MG TAB PO SCH (08:30)
[2018-04-27 09:26] VITALS: TEMP 98.6
--- NOTE | 2018-04-27 10:42 | P.DS ---
Admission Date: 04/26/18 Discharge Date: 04/27/18 Disposition: ROUTINE DISCHARGE Discharge Condition: GOOD - Problems (1) Acute and chronic respiratory failure Onset Date: 06/18/17 Current Visit: No Status: Acute Qualifiers: Respiratory failure complication: hypoxia Qualified Code(s): J96.21 - Acute and chronic respiratory failure with hypoxia (2) COPD exacerbation Onset Date: 10/25/15 Current Visit: No Status: Acute (3) BPH (benign prostatic hyperplasia) Onset Date: 04/01/18 Current Visit: No Status: Chronic Qualifiers: (4) Congestive heart failure Onset Date: 12/24/17 Current Visit: No Status: Chronic Qualifiers: Heart failure chronicity: unspecified (5) GERD (gastroesophageal reflux disease) Onset Date: 04/01/18 Current Visit: No Status: Chronic Qualifiers: Esophagitis presence: without esophagitis Qualified Code(s): K21.9 - Gastro -esophageal reflux disease without esophagitis Brief History of Present Illness: This is a 77-year-old male with significant past medical history of COPD, said CHF, GERD who presented to the ED which shortness of breath has been getting progressively worse for past couple of days. Patient was recently admitted to the hospital for similar symptoms and was treated for COPD exacerbation. Patient at that time was placed on BiPAP. The time before that patient was intubated for COPD exacerbation. Patient denies having any fever chills nausea vomiting at this time. Aside from shortness of breath and coughing he does not have any other complaints to offer. Patient states that When he presented to the ER he was tachypneic and was having hypoxia and thus was placed on BiPAP. Medicine team was consulted to admit the patient for further care. Hospital Course: Overall during the hospital stay patient remained stable Patient was initially admitted to the hospital for COPD exacerbation initially in the ER was found to be tachypneic and hypoxic thus was placed on BiPAP. Repeated blood gases showed marked improvement and thus patient was weaned off to nasal cannula and to room air. Patient was also kept on duo nebs, steroids here in the hospital. Patient had marked improvement in his symptoms and thus was discharged home under stable condition. Patient was asked to continue taking his inhalers and nebulizer treatments on a as needed basis. Patient was prescribed prednisone to go home with for total 5 days. Patient was asked to follow up with pulmonology in about 1-2 days post discharge. Vital Signs/Physical Exam: Temp Pulse Resp BP Pulse Ox 98.6 F 94 H 20 108/67 92 04/27/18 08:00 04/27/18 08:00 04/27/18 08:00 04/27/18 08:00 04/27/18 08:00 General: Alert, In no apparent distress HEENT: Atraumatic, PERRLA, EOMI Neck: Supple, JVD not distended Respiratory: Clear to auscultation bilaterally, Normal air movement Cardiovascular: Regular rate/rhythm, Normal S1 S2 Gastrointestinal: Normal bowel sounds, No tenderness Musculoskeletal: No tenderness Integumentary: No rashes Neurological: Normal speech, Normal tone, Normal affect Lymphatics: No axilla or inguinal lymphadenopathy Laboratory Data at Discharge: WBC 4.2 K/uL (4.3-10.9) L D 04/27/18 04:09 Hgb 14.5 g/dL (13.6-17.9) 04/27/18 04:09 Hct 42.1 % (39.6-49.0) 04/27/18 04:09 Plt Count 272 K/uL (152-406) 04/27/18 04:09 Sodium 140 mmol/L (136-145) 04/27/18 04:09 Potassium 4.8 mmol/L (3.5-5.1) 04/27/18 04:09 BUN 17 mg/dL (7-18) 04/27/18 04:09 Creatinine 0.87 mg/dL (0.55-1.3) 04/27/18 04:09 Glucose 127 mg/dL (74-106) H 04/27/18 04:09 Phosphorus 3.1 mg/dL (2.5-4.9) 04/27/18 04:09 Magnesium 2.2 mg/dL (1.8-2.4) 04/27/18 04:09 Total Bilirubin 0.6 mg/dL (0.2-1.0) 04/27/18 04:09 AST 13 U/L (15-37) L 04/27/18 04:09 ALT 18 U/L (12-78) 04/27/18 04:09 Alkaline Phosphatase 92 U/L (45-117) 04/27/18 04:09 Home Medications: Albuterol Sulfate [Proair Hfa] 2 puff IH Q6H PRN 04/26/18 Budesonide/Formoterol Fumarate [Symbicort 160-4.5 Mcg Inhaler] 2 puff IH BID Ipratropium/Albuterol Sulfate [Iprat-Albut 0.5-3(2.5) mg/3 ml] 1 inh NEB QID PRN 04/26/18 Levocetirizine Dihydrochloride [24Hr Allergy Relief] 5 mg PO BEDTIME 04/26/18 Pantoprazole Sodium [Protonix] 40 mg PO DAILY 04/26/18 Tamsulosin HCl [Flomax] 1 tab PO BID 04/26/18 Tiotropium [Spiriva Handihaler*] 18 mcg IH DAILY 04/26/18 clonazePAM [Klonopin*] 0.5 mg PO BIDP PRN 04/26/18 predniSONE [Prednisone*] 20 mg PO BID #10 tab 04/27/18 New Medications: predniSONE [Prednisone*] 20 mg PO BID #10 tab Diet: Regular Activity: Ad dalton Followup: Pavel Michelle MD [ACTIVE - CAN ADMIT] - 1 Week
[2018-04-27 12:23] VITALS: O2SAT 93
[2018-04-27 12:29] VITALS: BP 112/76
[2018-04-27] MEDS ORDERED: CETIRIZINE HCL 5 MG TABLET PO SCH (21:00)
== END 2018-04-27 12:46 | disposition home or self-care (01) | DRG 189 ==
LOC: ER 11:55 → ERHOLD 14:12 → 4TH 15:25
PROVIDERS: ADMIT Family Medicine; ATTEND Family Medicine
PROC: 5A09357 Assistance with Respiratory Ventilation, Less than 24 Consecutive Hours, Continuous Positive Airway Pressure (ICD-10-PCS; principal; 2018-04-26)
DX: J96.21 Acute and chronic respiratory failure with hypoxia (principal); J44.1 Chronic obstructive pulmonary disease with (acute) exacerbation; I50.9 Heart failure, unspecified; K21.9 Gastro-esophageal reflux disease without esophagitis; J30.9 Allergic rhinitis, unspecified; N40.0 Benign prostatic hyperplasia without lower urinary tract symptoms
CPT/HCPCS: 36415; 71045; 80048; 80053; 81003; 82805; 83605; 83735; 83880; 84100; 84145; 84484; 85025; 87040; 87070; 87205; 87804; 93005; 94660; 96365; 99291; 99292; J7512

== ENCOUNTER 2018-05-11 18:36 | Inpatient (IN) | payer MEDICARE ==
--- OUTSIDE RECORDS SUMMARY | 2018-05-11 18:38 | XMS REPORT ---
:1940 [facility] Address [address] [place] [address] Dr. [address] [place] [id number] Care Team Providers Name Role Phone Unavailable Unavailable Unavailable Problems This patient has no known problems. Allergies, Adverse Reactions, Alerts This patient has no known allergies or adverse reactions. Medications This patient has no known medications.
[2018-05-11 18:53] LABS: Arterial Blood Carboxyhemoglob 0.6 % (0-1.5); Blood O2 Saturation 98.4 % (92-98.5)
[2018-05-11 19:09] LABS: Absolute Lymphocytes (CBC) 4.7 K/uL (0.7-4.9); Absolute Monocytes 1.7 K/uL (0.1-1.3); Absolute Neutrophil 9.4 K/uL (1.8-8.0); Basophils % 1.2 % (0-1.3); Eosinophils % 6.7 % (0-4.4); Hematocrit 46.7 % (39.6-49.0); Lymphocytes % 27.6 % (15.3-44.8); MPV 9.2 fL (7.6-11.3); Monocytes % 9.8 % (3.3-12.3); RBC Red Blood Cell Count 5.12 M/uL (4.33-5.43)
[2018-05-11] MEDS ORDERED: ALBUTEROL 2.5 MG/3 ML NEB SOL ONE (19:16)
[2018-05-11] MEDS ORDERED: IPRATROPIUM BROM 0.5MG/2.5ML ONE (19:17)
[2018-05-11 19:19] LABS: Protime INR 1.07
[2018-05-11 19:22] LABS: Albumin 3.4 g/dL (3.4-5.0); Bilirubin Direct 0.2 mg/dL (0-0.2); Bilirubin Total 0.9 mg/dL (0.2-1.0); Magnesium 2.4 mg/dL (1.8-2.4); Potassium 4.9 mmol/L (3.5-5.1); Troponin (Emerg Dept Use Only) 0.06 ng/mL (0.0-0.045)
[2018-05-11] MEDS ORDERED: FAMOTIDINE 20 MG/2 ML VIAL IV ONE (19:32)
[2018-05-11] MEDS ORDERED: Levofloxacin500mg IV 500 MG/100 ML BAG IV ONE (19:32)
--- NOTE | 2018-05-11 19:32 | EDPHYS ---
Physician Documentation [facility] Name: Raphael Gilbert Age: 77 yrs Sex: Male : 1940 Arrival Date: 05/11/2018 Time: 18:37 Bed 4 Private MD: ED Physician Felix Zayas HPI: 05/11 18:40 This 77 yrs old Male presents to ER via Ambulatory with complaints of kristofer dyspnea, copd exacerbation. 18:40 The patient has shortness of breath at rest. Onset: The symptoms/episode began/occurred kristofer just prior to arrival, today. Duration: The symptoms are continuous, and are steadily getting worse. The patient's shortness of breath is aggravated by nothing, is alleviated by pursed lip breathing, application of supplemental oxygen. The patient or guardian reports cough, difficulty breathing. Modifying factors: The symptoms are alleviated by remaining still, the symptoms are aggravated by activity, lying flat. Associated signs and symptoms: Pertinent positives: non-productive cough. Associated signs and symptoms: The patient has no apparent associated signs or symptoms. Severity of symptoms: At their worst the symptoms were severe in the emergency department the symptoms have improved mildly. Historical: - Allergies: 18:41 Dilaudid; hj - PMHx: 18:41 COPD; Hypertension; PE; hj - PSHx: 18:41 Appendectomy; Blood clot removed from lung; hj - Immunization history:: Adult Immunizations unknown. - Social history:: Smoking status: Patient uses tobacco products, Patient/guardian denies using alcohol. - Ebola Screening: : Patient negative for fever greater than or equal to 101.5 degrees Fahrenheit, and additional compatible Ebola Virus Disease symptoms Patient denies exposure to infectious person Patient denies travel to an Ebola-affected area in the 21 days before illness onset. - Family history:: not pertinent. ROS: 18:40 Eyes: Negative for injury, pain, redness, and discharge, ENT: Negative for injury, kristofer pain, and discharge, Neck: Negative for injury, pain, and swelling, Cardiovascular: Negative for chest pain, palpitations, and edema, Abdomen/GI: Negative for abdominal pain, nausea, vomiting, diarrhea, and constipation, Back: Negative for injury and pain, : Negative for injury, bleeding, discharge, and swelling, MS/Extremity: Negative for injury and deformity, Skin: Negative for injury, rash, and discoloration, Neuro: Negative for headache, weakness, numbness, tingling, and seizure, Psych: Negative for depression, anxiety, suicide ideation, homicidal ideation, and hallucinations, Allergy/Immunology: Negative for hives, rash, and allergies, Endocrine: Negative for neck swelling, polydipsia, polyuria, polyphagia, and marked weight changes, Hematologic/Lymphatic: Negative for swollen nodes, abnormal bleeding, and unusual bruising. 18:40 Constitutional: Positive for body aches, chills. 18:40 Respiratory: Positive for cough, shortness of breath, at rest. Exam: 18:40 Head/Face: Normocephalic, atraumatic. Eyes: Pupils equal round and reactive to light, kristofer extra-ocular motions intact. Lids and lashes normal. Conjunctiva and sclera are non-icteric and not injected. Cornea within normal limits. Periorbital areas with no swelling, redness, or edema. ENT: Nares patent. No nasal discharge, no septal abnormalities noted. Tympanic membranes are normal and external auditory canals are clear. Oropharynx with no redness, swelling, or masses, exudates, or evidence of obstruction, uvula midline. Mucous membranes moist. Neck: Trachea midline, no thyromegaly or masses palpated, and no cervical lymphadenopathy. Supple, full range of motion without nuchal rigidity, or vertebral point tenderness. No Meningismus. Chest/axilla: Normal chest wall appearance and motion. Nontender with no deformity. No lesions are appreciated. Abdomen/GI: Soft, non-tender, with normal bowel sounds. No distension or tympany. No guarding or rebound. No evidence of tenderness throughout. Back: No spinal tenderness. No costovertebral tenderness. Full range of motion. Male : Normal genitalia with no discharge or lesions. Skin: Warm, dry with normal turgor. Normal color with no rashes, no lesions, and no evidence of cellulitis. 18:40 Constitutional: The patient appears in obvious distress, moderately distressed. 18:40 Cardiovascular: Rate: tachycardic, Rhythm: regular, Pulses: Pulses are 4+ in bilateral radial, brachial, femoral, popliteal, posterior tibial and and dorsalis pedis arteries.. Heart sounds: normal, JVD: is not appreciated. 18:40 Respiratory: moderate respiratory distress is noted, severe repiratory distress is noted, Respirations: labored breathing, that is moderate, that is severe, Breath sounds: decreased breath sounds, rhonchi, that are moderate, Respiratory rate: 26 Vital Signs: 18:42 BP 143 / 115; Pulse 141; Resp 24; Temp 98.0; Pulse Ox 100% on BiPAP; Weight 61.23 kg; hj Height 5 ft. 5 in. (165.10 cm); Pain 0/10; 19:04 BP 136 / 87; Pulse 138; Resp 27; Pulse Ox 98% on BiPAP; hj 20:00 BP 119 / 75; Pulse 120; Resp 20; Pulse Ox 99% on BiPAP; ea 21:30 BP 126 / 93; Pulse 115; Resp 22; Pulse Ox 99% on BiPAP; ea 22:12 BP 112 / 81; Pulse 112; Resp 15; Pulse Ox 96% on BiPAP; ea 18:42 Body Mass Index 22.46 (61.23 kg, 165.10 cm) hj MDM: 18:38 Patient medically screened. kristofer 18:44 Data reviewed: vital signs, nurses notes, lab test result(s), EKG, radiologic studies, kristofer plain films. 05/11 18:40 Order name: Basic Metabolic Panel; Complete Time: 19:34 kristofer 05/11 18:40 Order name: CBC with Diff; Complete Time: 19:34 kristofer 05/11 18:40 Order name: LFT's; Complete Time: 19:34 kristofer 05/11 18:40 Order name: Magnesium; Complete Time: 19:34 kristofre 05/11 18:40 Order name: NT PRO-BNP; Complete Time: 19:34 kristofer 05/11 18:40 Order name: PT-INR; Complete Time: 19:34 kristofer 05/11 18:40 Order name: Troponin (emerg Dept Use Only); Complete Time: 19:34 kristofer 05/11 18:40 Order name: Blood Culture Adult (2) kristofer 05/11 18:40 Order name: Procalcitonin; Complete Time: 20:49 kristofer 05/11 18:40 Order name: Lactate; Complete Time: 19:34 kristofer 05/11 18:40 Order name: Lipase; Complete Time: 19:34 kristofer 05/11 18:40 Order name: ABG; Complete Time: 19:34 kristofer 05/11 21:28 Order name: CBC with Automated Diff [facility] 05/11 21:28 Order name: CBC with Automated Diff [facility] 05/11 18:40 Order name: XRAY Chest (1 view) [facility] 05/11 18:40 Order name: EKG; Complete Time: 18:41 [facility] 05/11 18:40 Order name: BIPAP [facility] 05/11 21:28 Order name: CONS Physician Consult [facility] 05/11 21:28 Order name: Heart Healthy [facility] 05/11 21:28 Order name: Comprehensive Metabolic Panel [facility] 05/11 21:28 Order name: Comprehensive Metabolic Panel [facility] 05/11 18:40 Order name: Cardiac monitoring; Complete Time: 18:44 [facility] 05/11 18:40 Order name: EKG - Nurse/Tech; Complete Time: 18:45 [facility] 05/11 18:40 Order name: IV Saline Lock; Complete Time: 18:45 [facility] 05/11 18:40 Order name: Labs collected and sent; Complete Time: 18:57 [facility] 05/11 18:40 Order name: O2 Per Protocol; Complete Time: 18:45 [facility] 05/11 18:40 Order name: O2 Sat Monitoring; Complete Time: 18:45 [facility] Administered Medications: 18:40 Drug: Decadron - Dexamethasone 10 mg Route: IVP; Site: left forearm; hj 19:00 Follow up: Response: No adverse reaction ea 19:00 Drug: Albuterol - atroVENT (3:1) (2.5 mg - 0.5 mg) 3 ml Route: Nebulizer; ea 20:00 Follow up: Response: No adverse reaction; Marked relief of symptoms ea 19:20 Drug: Aspirin 162 mg Route: PO; ea 20:00 Follow up: Response: No adverse reaction ea 19:30 Drug: levofloxacin 500 mg Volume: 100 ml; Route: IVPB; Infused Over: 60 mins; Site: ea right antecubital; 20:30 Follow up: Response: No adverse reaction; IV Status: Completed infusion ea 19:32 Drug: Pepcid 20 mg Route: IVP; Site: right antecubital; ea 20:00 Follow up: Response: No adverse reaction ea 19:34 Drug: Lovenox 1 mg/kg Route: Sub-Q; Site: right lower abdomen; ea 20:00 Follow up: Response: No adverse reaction ea 20:08 Drug: fentaNYL (PF) 25 mcg Route: IVP; Site: right antecubital; ea 20:40 Follow up: Response: No adverse reaction; Pain is decreased ea 20:08 Drug: Zofran 4 mg Route: IVP; Site: right antecubital; ea 20:40 Follow up: Response: No adverse reaction; Marked relief of symptoms ea 23:04 Not Given (Patient Refused): fentaNYL (PF) 25 mcg IVP once ea Disposition: 05/11/18 19:32 Hospitalization ordered by Scarlet Wesley for Inpatient Admission. Preliminary diagnosis are Respiratory failure, unspecified with hypercapnia, Other chest pain, Chest pain, unspecified, Acidosis - respiratory. - Bed requested for Intensive Care Unit. - Status is Inpatient Admission. ea - Condition is Serious. - Problem is new. - Symptoms have improved. UTI on Admission? No Signatures: Dispatcher [employer] EDMS Felix Zayas MD MD cha Joaquin, Henry RN RN Felix Reina PA PA cp Garcia, Cindy, RN RN Zenaida France RN RN ea Corrections: (The following items were deleted from the chart) 19:33 19:32 Hospitalization Ordered by Scarlet Wesley MD for Inpatient Admission. Preliminary [facility] diagnosis is Respiratory failure, unspecified with hypercapnia; Other chest pain; Chest pain, unspecified. Bed requested for Telemetry/MedSurg (Inpatient). Status is Inpatient Admission. Condition is Serious. Problem is new. Symptoms have improved. UTI on Admission? No. kristofer 19:37 19:33 05/11/2018 19:32 Hospitalization Ordered by Scarlet Wesley MD for Inpatient kristofer Admission. Preliminary diagnosis is Respiratory failure, unspecified with hypercapnia; Other chest pain; Chest pain, unspecified; Acidosis - respiratory. Bed requested for Telemetry/MedSurg (Inpatient). Status is Inpatient Admission. Condition is Serious. Problem is new. Symptoms have improved. UTI on Admission? No. kristofer 21:56 19:37 05/11/2018 19:32 Hospitalization Ordered by Scarlet eWsley MD for Inpatient cg Admission. Preliminary diagnosis is Respiratory failure, unspecified with hypercapnia; Other chest pain; Chest pain, unspecified; Acidosis - respiratory. Bed requested for Intensive Care Unit. Status is Inpatient Admission. Condition is Serious. Problem is new. Symptoms have improved. UTI on Admission? No. kristofer 23:05 21:56 05/11/2018 19:32 Hospitalization Ordered by Scarlet Wesley MD for Inpatient ea Admission. Preliminary diagnosis is Respiratory failure, unspecified with hypercapnia; Other chest pain; Chest pain, unspecified; Acidosis - respiratory. Bed requested for Intensive Care Unit. Status is Inpatient Admission. Condition is Serious. Problem is new. Symptoms have improved. UTI on Admission? No. cg
--- NOTE | 2018-05-11 19:32 | ER ---
Nurse's Notes [facility] Name: Raphael Gilbert Age: 77 yrs Sex: Male : 1940 Arrival Date: 05/11/2018 Time: 18:37 Bed 4 Private MD: Diagnosis: Respiratory failure, unspecified with hypercapnia;Other chest pain;Chest pain, unspecified;Acidosis-respiratory Presentation: 05/11 18:38 Presenting complaint: EMS states: started having difficulty breathing around 5 pm hj today, on scene, pt was using O2 and tacypneic; BP- 194/118; HR- 146; using CPAP on arrival;. Transition of care: patient was not received from another setting of care. Onset of symptoms was May 11, 2018 at 17:00. Risk Assessment: Do you want to hurt yourself or someone else? Patient reports no desire to harm self or others. Initial Sepsis Screen: Does the patient meet any 2 criteria? Yes Does the patient have a suspected source of infection? Yes: Productive cough/pneumonia. Care prior to arrival: None. 18:38 Method Of Arrival: Ambulatory 18:38 Acuity: MEGHAN 2 hj Triage Assessment: 18:38 General: Appears in no apparent distress. uncomfortable, Behavior is cooperative, hj appropriate for age, anxious. Pain: Denies pain. 18:38 EENT: No signs and/or symptoms were reported regarding the EENT system. Neuro: Level of hj Consciousness is awake, alert, obeys commands, Oriented to person, place, time, situation, Appropriate for age. Cardiovascular: Capillary refill < 3 seconds Patient's skin is warm and dry. Rhythm is sinus tachycardia. Respiratory: Reports labored breathing Airway is patent Respiratory effort is labored, shallow, Respiratory pattern is tachypnea Breath sounds with wheezes the patient has severe shortness of breath. GI: No signs and/or symptoms were reported involving the gastrointestinal system. : No signs and/or symptoms were reported regarding the genitourinary system. Derm: No signs and/or symptoms reported regarding the dermatologic system. Musculoskeletal: No signs and/or symptoms reported regarding the musculoskeletal system. Historical: - Allergies: 18:41 Dilaudid; hj - PMHx: 18:41 COPD; Hypertension; PE; hj - PSHx: 18:41 Appendectomy; Blood clot removed from lung; hj - Immunization history:: Adult Immunizations unknown. - Social history:: Smoking status: Patient uses tobacco products, Patient/guardian denies using alcohol. - Ebola Screening: : Patient negative for fever greater than or equal to 101.5 degrees Fahrenheit, and additional compatible Ebola Virus Disease symptoms Patient denies exposure to infectious person Patient denies travel to an Ebola-affected area in the 21 days before illness onset. - Family history:: not pertinent. Screenin:38 Abuse screen: Denies threats or abuse. Denies injuries from another. Nutritional hj screening: No deficits noted. Tuberculosis screening: No symptoms or risk factors identified. Fall Risk None identified. Assessment: 18:38 Reassessment: see triage for assessment;. hj 18:38 Reassessment: provider in room;. hj 19:00 General: Appears uncomfortable, Behavior is calm, cooperative, appropriate for age. ea Pain: Denies pain. Neuro: Level of Consciousness is awake, alert, obeys commands, Oriented to person, place, time, situation. Cardiovascular: Patient's skin is warm and dry. Respiratory: Airway is patent Respiratory effort is even, Respiratory pattern is tachypnea Pt on BiPap Breath sounds are coarse bilaterally. GI: Abdomen is non-distended, Bowel sounds present X 4 quads. Derm: Skin is pink, warm \T\ dry. Musculoskeletal: Circulation, motion, and sensation intact. 20:30 Reassessment: Patient and/or family updated on plan of care and expected duration. Pain ea level reassessed. Pt alert and oriented x 4. Remains on BiPAP tolerating well. 21:50 Reassessment: Patient and/or family updated on plan of care and expected duration. Pain ea level reassessed. Pt alert and o x 4, respirations even and unlabored, pt remains on BiPAP. Pt reports he is feeling better. Denies pain at this time. Awaiting on room assignment. 22:30 Reassessment: Patient and/or family updated on plan of care and expected duration. Pain ea level reassessed. Pt resting with eyes closed, respirations even and unlabored. Chest expansions even and symmetrical, RTat bedside, pt placed on non re breather for transport to ICU. Pt admitted to ICU per nurse, on monitor. Pt tolerating well. Vital Signs: 18:42 BP 143 / 115; Pulse 141; Resp 24; Temp 98.0; Pulse Ox 100% on BiPAP; Weight 61.23 kg; hj Height 5 ft. 5 in. (165.10 cm); Pain 0/10; 19:04 BP 136 / 87; Pulse 138; Resp 27; Pulse Ox 98% on BiPAP; hj 20:00 BP 119 / 75; Pulse 120; Resp 20; Pulse Ox 99% on BiPAP; ea 21:30 BP 126 / 93; Pulse 115; Resp 22; Pulse Ox 99% on BiPAP; ea 22:12 BP 112 / 81; Pulse 112; Resp 15; Pulse Ox 96% on BiPAP; ea 18:42 Body Mass Index 22.46 (61.23 kg, 165.10 cm) ED Course: 18:37 Patient arrived in ED. 18:38 Felxi Zayas MD is Attending Physician. [facility] 18:38 Arm band placed on left wrist. hj 18:38 Patient has correct armband on for positive identification. Placed in gown. Bed in low hj position. Call light in reach. Side rails up X 1. Adult w/ patient. 18:38 Maintain EMS IV. Dressing intact. Good blood return noted. Site clean \T\ dry. Gauge \T\ hj site: 20g L FA. 18:38 Inserted saline lock: 20 gauge in left antecubital area, using aseptic technique. Blood collected. 18:38 Initial lab(s) drawn, by me, sent to lab. First set of blood cultures drawn by co. 18:40 Triage completed. 18:43 Burton Garcia RN is Primary Nurse. hj 19:09 Report given to LAURI Estevez. hj 19:11 XRAY Chest (1 view) In Process Unspecified. EDMS 19:31 Scarlet Wesley MD is Hospitalizing Provider. [facility] 19:32 Zenaida France RN is Primary Nurse. ea 22:11 No provider procedures requiring assistance completed. Patient admitted, IV remains in ea place. Administered Medications: 18:40 Drug: Decadron - Dexamethasone 10 mg Route: IVP; Site: left forearm; 19:00 Follow up: Response: No adverse reaction ea 19:00 Drug: Albuterol - atroVENT (3:1) (2.5 mg - 0.5 mg) 3 ml Route: Nebulizer; ea 20:00 Follow up: Response: No adverse reaction; Marked relief of symptoms ea 19:20 Drug: Aspirin 162 mg Route: PO; ea 20:00 Follow up: Response: No adverse reaction ea 19:30 Drug: levofloxacin 500 mg Volume: 100 ml; Route: IVPB; Infused Over: 60 mins; Site: ea right antecubital; 20:30 Follow up: Response: No adverse reaction; IV Status: Completed infusion ea 19:32 Drug: Pepcid 20 mg Route: IVP; Site: right antecubital; ea 20:00 Follow up: Response: No adverse reaction ea 19:34 Drug: Lovenox 1 mg/kg Route: Sub-Q; Site: right lower abdomen; ea 20:00 Follow up: Response: No adverse reaction ea 20:08 Drug: fentaNYL (PF) 25 mcg Route: IVP; Site: right antecubital; ea 20:40 Follow up: Response: No adverse reaction; Pain is decreased ea 20:08 Drug: Zofran 4 mg Route: IVP; Site: right antecubital; ea 20:40 Follow up: Response: No adverse reaction; Marked relief of symptoms ea 23:04 Not Given (Patient Refused): fentaNYL (PF) 25 mcg IVP once ea Outcome: 19:32 Decision to Hospitalize by Provider. kristofer 20:00 Instructed on the need for admit. ea 22:30 Admitted to ICU accompanied by nurse, via stretcher, room ICU 6, with oxygen, on ea monitor, with chart, Report called to Receiving nurse 22:30 Condition: stable 23:05 Patient left the ED. ea Signatures: Dispatcher [employer] EDMS Felix Zayas MD MD cha Joaquin, Henry, RN RN hj Antunez, Elena, RN RN ea Corrections: (The following items were deleted from the chart) 19:04 18:42 Pulse 141bpm; Resp 24bpm; Pulse Ox 100% BiPAP; Temp 98.0F; 61.23 kg; Height 5 ft. hj 5 in.; BMI: 22.4; Pain 0/10; hj
[2018-05-11] MEDS ORDERED: ENOXAPARIN 60 MG/0.6 ML SQ ONE (19:33)
[2018-05-11] MEDS ORDERED: ASPIRIN 81 MG CHEWABLE TABLET ONE (19:33)
[2018-05-11] MEDS ORDERED: FENTANYL CITR 100 MCG/2 ML ONE (20:12)
[2018-05-11] MEDS ORDERED: ONDANSETRON 4 MG/2 ML VIAL ONE (20:12)
--- NOTE | 2018-05-11 21:02 | RAD REPORT ---
EXAM DESCRIPTION: Georgina Single View05/11/2018 7:16 pm CLINICAL HISTORY: Cough COMPARISON: April 2018 FINDINGS: Lungs are hyperaerated with scarring. The lungs appear clear of acute infiltrate. The heart is normal size IMPRESSION: No acute abnormalities displayed
[2018-05-11] MEDS ORDERED: ONDANSETRON 4 MG (ODT) TAB PO PRN (21:22)
[2018-05-11] MEDS ORDERED: MAGNESIUM HYDROXIDE 8% 30 ML PO PRN (21:22)
[2018-05-11] MEDS ORDERED: PROMETHAZINE 25 MG/SUPP RECT PRN (21:22)
[2018-05-11] MEDS ORDERED: ACETAMINOPHEN 500 MG TAB PO PRN (21:22)
[2018-05-11] MEDS ORDERED: NA CHLORIDE 0.9% 1,000 ML IV SCH (22:00)
[2018-05-11] MEDS: METHYLPREDNISOLONE 125 MG INJ IV SCH (23:47)
[2018-05-12] MEDS ORDERED: IPRATROPIUM BROM 0.5MG/2.5ML NEB SCH
[2018-05-12] MEDS: IPRATROPIUM BROM 0.5MG/2.5ML NEB SCH ×4 (02:35→20:59)
[2018-05-12] MEDS: ALBUTEROL 2.5 MG/3 ML NEB SOL NEB SCH ×4 (02:35→20:59)
[2018-05-12 03:27] VITALS: BMI 16.1
[2018-05-12] MEDS: METHYLPREDNISOLONE 125 MG INJ IV SCH (05:20)
[2018-05-12 05:30] LABS: Absolute Lymphocytes (CBC) 0.6 K/uL (0.7-4.9); Absolute Monocytes 0.1 K/uL (0.1-1.3); Absolute Neutrophil 5.8 K/uL (1.8-8.0); Basophils % 0.2 % (0-1.3); Eosinophils % 0.1 % (0-4.4); Lymphocytes % 9.4 % (15.3-44.8); MPV 9.5 fL (7.6-11.3); Monocytes % 1.3 % (3.3-12.3); RBC Red Blood Cell Count 4.79 M/uL (4.33-5.43)
[2018-05-12 05:43] LABS: Albumin 3.1 g/dL (3.4-5.0); Bilirubin Total 0.7 mg/dL (0.2-1.0); Potassium 4.6 mmol/L (3.5-5.1); Protein, Total 6.4 g/dL (6.4-8.2)
[2018-05-12 06:13] LABS: Blood Morphology Comment NOT SEEN (NOT SEEN); Platelet Estimate ADEQ
[2018-05-12] MEDS: ENOXAPARIN 40 MG/0.4 ML SQ SCH (09:17)
--- NOTE | 2018-05-12 09:46 | P.HP ---
Certification for Inpatient Patient admitted to: Inpatient With expected LOS: >2 Midnights Patient will require the following post-hospital care: None Practitioner: I am a practitioner with admitting privileges, knowledge of patient current condition, hospital course, and medical plan of care. Services: Services provided to patient in accordance with Admission requirements found in Title 42 Section 412.3 of the Code of Federal Regulations Patient History Date of Service: 05/11/18 Reason for admission: Shortness of breath History of Present Illness: Patient is 69-year-old gentleman came to the hospital with difficulty breathing. Patient was hypoxic and blood gases revealed patient had hypercapnia. Patient is admitted to the hospital for hypercapnic respiratory failure. Patient is been in the hospital multiple occasions. He remains cachectic in continues to have a lot of difficulty with his breathing. With a BiPAP she is feeling better. Will continue on BiPAP and then reassess him in the morning. Allergies hydromorphone HCl [From Dilaudid] Adverse Reaction (Severe, Verified 05/12/18 02 :05) Itching Home Medications: Albuterol Sulfate [Proair Hfa] 2 puff IH Q6H PRN 04/26/18 Budesonide/Formoterol Fumarate [Symbicort 160-4.5 Mcg Inhaler] 2 puff IH BID Ipratropium/Albuterol Sulfate [Iprat-Albut 0.5-3(2.5) mg/3 ml] 1 inh NEB QID PRN 04/26/18 Levocetirizine Dihydrochloride [24Hr Allergy Relief] 5 mg PO BEDTIME 04/26/18 Pantoprazole Sodium [Protonix] 40 mg PO DAILY 04/26/18 Tamsulosin HCl [Flomax] 1 tab PO BID 04/26/18 Tiotropium [Spiriva Handihaler*] 18 mcg IH DAILY 04/26/18 clonazePAM [Klonopin*] 0.5 mg PO BIDP PRN 04/26/18 Guaifenesin [Mucinex] 600 mg PO DAILY PRN #15 tablet.er 04/27/18 predniSONE [Prednisone*] 20 mg PO BID #10 tab 04/27/18 - Past Medical/Surgical History Has patient received pneumonia vaccine in the past: Yes Diabetic: No -: Allergic rhinitis -: COPD -: Pulmonary embolism -: Gastroesophageal reflux disease -: Benign prostatic hypertrophy -: Rib surgery -: appendectomy -: Pulmonary embolectomy - Family History Father Medical History: Heart disease, GI disease Mother Medical History: Heart disease Sister Medical History: Heart disease - Social History Smoking Status: Former smoker Alcohol use: Yes CD- Drugs: No Caffeine use: Yes Place of Residence: Home Review of Systems 10-point ROS is otherwise unremarkable Physical Examination - Vital Signs Temperature: 97.3 F Blood Pressure: 114/71 Pulse: 92 Respirations: 18 Pulse Ox (%): 100 - Physical Exam General: Alert, In no apparent distress, Oriented x3 HEENT: Atraumatic, PERRLA, Mucous membr. moist/pink, EOMI, Sclerae nonicteric Neck: Supple, 2+ carotid pulse no bruit, No LAD, Without JVD or thyroid abnormality Respiratory: Diminished, Expiratory wheezes, Rhonchi/gurgles Cardiovascular: Regular rate/rhythm, Normal S1 S2, Systolic murmur Gastrointestinal: Normal bowel sounds, Soft and benign, Non-distended, No tenderness, No rebound, No guarding Musculoskeletal: No clubbing, No swelling, No tenderness Integumentary: No rashes Neurological: Normal speech, Normal tone, Sensation intact, Cranial nerves 3-12 intact, Normal affect, Abnormal gait, Abnormal strength Lymphatics: No axilla or inguinal lymphadenopathy - Studies Laboratory Data (last 24 hrs) 05/11/18 18:45: PT 12.6 H, INR 1.07 05/11/18 18:45: WBC 17.2 H, Hgb 15.7, Hct 46.7, Plt Count 413 H 05/11/18 18:45: Sodium 140, Potassium 4.9, BUN 25 H, Creatinine 0.88, Glucose 109 H, Magnesium 2.4, Total Bilirubin 0.9, AST 22, ALT 22, Alkaline Phosphatase 103, Lipase 91 Assessment & Plan - Problems (Diagnosis) (1) Acute hypercapnic respiratory failure Current Visit: Yes Status: Acute (2) Cachexia Current Visit: Yes Status: Acute (3) Acute and chronic respiratory failure Onset Date: 06/18/17 Current Visit: No Status: Acute Qualifiers: (4) Anorexia Current Visit: No Status: Acute (5) COPD (chronic obstructive pulmonary disease) Current Visit: No Status: Acute Qualifiers: COPD type: COPD with acute exacerbation Qualified Code(s): J44.1 - Chronic obstructive pulmonary disease with (acute) exacerbation - Plan Plan: 1. Continue with albuterol, Atrovent, and steroids 2. Continue IV antibiotics 3. BiPAP support and wean off gradually 4. Gentle hydration 5. Monitor electrolytes along with blood pressure and blood sugars 6. Supplement with meals 7. GI and DVT prophylaxis Discharge Plan: Home Plan to discharge in: Greater than 2 days - Advance Directives Does patient have a Living Will: No Does patient have a Durable POA for Healthcare: No - Code Status/Comfort Care Code Status Assessed: Yes Code Status: Full Code Critical Care: No Time Spent Managing PTS Care (In Minutes): 55
--- NOTE | 2018-05-12 10:01 | P.CNS ---
Date of Consult: 05/12/18 Chief Complaint: COPD exacerbation History of Present Illness: Patient is 77 years of age well known to me a history of terminal COPD with frequent exacerbations admitted with worsening dyspnea cough congestion compliant with his medication he takes Spiriva Symbicort did not help them is following with a obstetrician in [place] currently feeling better history of pulmonary embolism history of pulmonary embolism Allergies hydromorphone HCl [From Dilaudid] Adverse Reaction (Severe, Verified 05/12/18 02 :05) Itching Home Medications: Albuterol Sulfate [Proair Hfa] 2 puff IH Q6H PRN 04/26/18 Budesonide/Formoterol Fumarate [Symbicort 160-4.5 Mcg Inhaler] 2 puff IH BID Ipratropium/Albuterol Sulfate [Iprat-Albut 0.5-3(2.5) mg/3 ml] 1 inh NEB QID PRN 04/26/18 Levocetirizine Dihydrochloride [24Hr Allergy Relief] 5 mg PO BEDTIME 04/26/18 Pantoprazole Sodium [Protonix] 40 mg PO DAILY 04/26/18 Tamsulosin HCl [Flomax] 1 tab PO BID 04/26/18 Tiotropium [Spiriva Handihaler*] 18 mcg IH DAILY 04/26/18 clonazePAM [Klonopin*] 0.5 mg PO BIDP PRN 04/26/18 Guaifenesin [Mucinex] 600 mg PO DAILY PRN #15 tablet.er 04/27/18 predniSONE [Prednisone*] 20 mg PO BID #10 tab 04/27/18 - Past Medical/Surgical History Diabetic: No -: Allergic rhinitis -: COPD -: Pulmonary embolism -: Gastroesophageal reflux disease -: Benign prostatic hypertrophy -: Rib surgery -: appendectomy -: Pulmonary embolectomy - Family History Father Medical History: Heart disease, GI disease Mother Medical History: Heart disease Sister Medical History: Heart disease - Social History Smoking Status: Unknown if ever smoked Alcohol use: Yes CD- Drugs: No Caffeine use: Yes Place of Residence: Home Review of Systems 10-point ROS is otherwise unremarkable General: Weakness Respiratory: Cough, Hemoptysis Physical Examination Temp Pulse Resp BP Pulse Ox 97.3 F 92 H 18 114/71 100 05/12/18 09:46 05/12/18 09:46 05/12/18 09:46 05/12/18 09:46 05/12/18 09:46 General: Alert, Oriented x3, Mild distress Neck: Supple Respiratory: Clear to auscultation bilaterally, Diminished Cardiovascular: No edema, Regular rate/rhythm Gastrointestinal: Normal bowel sounds, Soft and benign Musculoskeletal: No clubbing, No swelling Integumentary: No rashes, No breakdown Laboratory Data (last 24 hrs) 05/11/18 18:45: PT 12.6 H, INR 1.07 05/11/18 18:45: WBC 17.2 H, Hgb 15.7, Hct 46.7, Plt Count 413 H 05/11/18 18:45: Sodium 140, Potassium 4.9, BUN 25 H, Creatinine 0.88, Glucose 109 H, Magnesium 2.4, Total Bilirubin 0.9, AST 22, ALT 22, Alkaline Phosphatase 103, Lipase 91 - Problems (1) COPD exacerbation Onset Date: 10/25/15 Current Visit: No Status: Acute Plan: Patient is 77 years of age admitted with worsening cough shortness of breath chest congestion exacerbation of COPD chest x-ray shows COPD changes blood gases hypoxic hypercapnic white count is now normal he will need the performance of brought Wanna as an outpatient continue with Spiriva low-dose prednisone patient can be transferred to the floor records from his previous hospitalization
[2018-05-12] MEDS: ARFORMOTEROL TARTRATE 15 MCG/2 ML VIAL.NEB NEB SCH ×2 (10:30→20:59)
[2018-05-12] MEDS: levoFLOXacin 500 MG TAB PO SCH (11:18)
[2018-05-12] MEDS ORDERED: LORATADINE 10 MG TAB PO PRN (11:27)
--- NOTE | 2018-05-12 13:32 | EKG ---
Test Date: 2018-05-11 Test Time: 18:41:51 Art Dealer: DEDRA MEASUREMENT RESULTS: Intervals: Rate: 139 MI: 128 QRSD: 86 QT: 284 QTc: 432 [place]: P: 84 MI: 128 QRS: 41 T: 78 INTERPRETIVE STATEMENTS: Sinus tachycardia ST elevation, consider inferior injury or acute infarct ACUTE NC / STEMI Abnormal ECG Compared to ECG 04/26/2018 12:09:19 ST (T wave) deviation now present Myocardial infarct finding now present Electronically Signed On 05-12-18 13:21:50 DIGITAL MEDIA PLANNER by Elver Brizuela
--- NOTE | 2018-05-12 13:55 | P.PN ---
Subjective Date of Service: 05/12/18 Chief Complaint: COPD exacerbation And seen and examined at bedside with RN. Chart reviewed. Case discussed with pulmonology at this time. No complaints to offer overnight. Has been doing well overall. Has been off of BiPAP at this time. Review of Systems 10-point ROS is otherwise unremarkable Physical Examination - Vital Signs Temperature: 97.3 F Blood Pressure: 101/69 Pulse: 96 Respirations: 22 Pulse Ox (%): 96 - Physical Exam General: Alert, In no apparent distress HEENT: Atraumatic, PERRLA, EOMI Neck: Supple, JVD not distended Respiratory: Normal air movement, Expiratory wheezes, Inspiratory wheezes Cardiovascular: Regular rate/rhythm, Normal S1 S2 Gastrointestinal: Normal bowel sounds, No tenderness Musculoskeletal: No tenderness Integumentary: No rashes Neurological: Normal speech, Normal tone, Normal affect Lymphatics: No axilla or inguinal lymphadenopathy - Studies Laboratory Data (last 24 hrs) 05/11/18 18:45: PT 12.6 H, INR 1.07 05/11/18 18:45: WBC 17.2 H, Hgb 15.7, Hct 46.7, Plt Count 413 H 05/11/18 18:45: Sodium 140, Potassium 4.9, BUN 25 H, Creatinine 0.88, Glucose 109 H, Magnesium 2.4, Total Bilirubin 0.9, AST 22, ALT 22, Alkaline Phosphatase 103, Lipase 91 Medications List Reviewed: Yes Assessment And Plan - Current Problems (Diagnosis) (1) Acute hypercapnic respiratory failure Current Visit: Yes Status: Acute Plan: Acute hyper technique respiratory failure most likely secondary to COPD exacerbation -currently off of BiPAP weaned to nasal cannula. Does use home oxygen at the house. -pulmonology has been consulted. Appreciated recommendations this time. -transfer patient to the floor for further care. (2) COPD exacerbation Onset Date: 10/25/15 Current Visit: No Status: Acute Plan: Acute COPD exacerbation most likely secondary to severe chronic disease versus upper respiratory infection -duo nebs, steroids, BiPAP weaned to nasal cannula at this time -pulmonology consulted. Appreciated recommendations (3) Congestive heart failure Onset Date: 12/24/17 Current Visit: No Status: Chronic Qualifiers: Heart failure chronicity: unspecified (4) GERD (gastroesophageal reflux disease) Onset Date: 04/01/18 Current Visit: No Status: Chronic Qualifiers: Esophagitis presence: without esophagitis Qualified Code(s): K21.9 - Gastro -esophageal reflux disease without esophagitis (5) Cachexia Current Visit: Yes Status: Chronic Discharge Plan: Home Plan to discharge in: 48 Hours - Code Status/Comfort Care Code Status Assessed: Yes Critical Care: Yes
[2018-05-12] MEDS ORDERED: GUAIFENESIN 600 MG SA TAB PO PRN (13:59)
[2018-05-12] MEDS: METHYLPREDNISOLONE 40 MG INJ IV SCH (16:14)
[2018-05-12] MEDS ORDERED: [UNRECOGNIZED DRUG - REMARK] PO SCH (21:00)
[2018-05-12] MEDS ORDERED: CETIRIZINE HCL 5 MG TABLET PO SCH (21:00)
[2018-05-12] MEDS: TAMSULOSIN 0.4 MG SR CAP PO SCH (21:53)
[2018-05-13] MEDS: METHYLPREDNISOLONE 40 MG INJ IV SCH (00:34)
[2018-05-13] MEDS ORDERED: TEMAZEPAM 15 MG CAP PO PRN (00:47)
[2018-05-13 01:28] LABS: Urine Appearance CLEAR; Urine Bilirubin NEGATIVE (NEG); Urine Blood NEGATIVE (NEG); Urine Color YELLOW; Urine Glucose NEGATIVE (NEG); Urine Protein NEGATIVE (NEG); Urine Specific Gravity 1.015 (1.005-1.030); Urine Urobilinogen 0.2 mg/dL (0.2-1.0)
[2018-05-13 01:29] LABS: Urine Microscopic Reflex NO UMIC
[2018-05-13] MEDS: ALBUTEROL 2.5 MG/3 ML NEB SOL NEB SCH ×2 (02:01→09:12)
[2018-05-13] MEDS: IPRATROPIUM BROM 0.5MG/2.5ML NEB SCH ×2 (02:01→09:12)
--- NOTE | 2018-05-13 08:22 | P.PN ---
Subjective Date of Service: 05/13/18 Chief Complaint: COPD exacerbation Subjective: Improving (Patient is doing better still short of breath) Review of Systems General: Weakness Respiratory: Cough, Shortness of Breath Physical Examination - Vital Signs Temperature: 98.5 F Blood Pressure: 105/70 Pulse: 96 Respirations: 18 Pulse Ox (%): 91 - Physical Exam General: Alert, Oriented x3, Mild distress Respiratory: Expiratory wheezes Cardiovascular: No edema - Studies Medications List Reviewed: Yes Assessment & Plan - Problems (Diagnosis) (1) COPD exacerbation Onset Date: 10/25/15 Current Visit: No Status: Acute Plan: Patient is 77 years of age admitted with COPD exacerbation he can be discharged home patient has prednisone at home can discharged home on levofloxacin fire mg daily for 7 days prednisone 10 twice a day for at least 2 weeks I have faxed in a prescription for Brovana. Continue with Spiriva and he has regular nebulizers follow with me in 2 weeks
[2018-05-13] MEDS: TAMSULOSIN 0.4 MG SR CAP PO SCH (08:35)
[2018-05-13] MEDS: ENOXAPARIN 40 MG/0.4 ML SQ SCH (08:35)
[2018-05-13] MEDS: levoFLOXacin 500 MG TAB PO SCH (08:35)
[2018-05-13] MEDS ORDERED: PANTOPRAZOLE 40MG TABLET PO SCH (09:00)
[2018-05-13] MEDS ORDERED: predniSONE 20 MG TAB PO SCH (09:00)
[2018-05-13] MEDS: ARFORMOTEROL TARTRATE 15 MCG/2 ML VIAL.NEB NEB SCH (09:12)
[2018-05-13 09:49] VITALS: O2SAT 99
--- NOTE | 2018-05-13 10:27 | ECHO ---
HEIGHT: 5 ft 11 in WEIGHT: 115 lb 14.4 oz DATE OF STUDY: 05/13/[address]: Pavel Michelle MD 2-DIMENSIONAL: YES M.MODE: YES DOPPLER: YES COLOR FLOW: YES TDS: NO PORTABLE: NO DEFINITY: NO BUBBLE STUDY: NO DIAGNOSIS: RESPIRATORY FAILURE CARDIAC HISTORY: CATHERIZATION: NO SURGERY: NO PROSTHETIC VALVE: NO PACEMAKER: NO MEASUREMENTS (cm) DIASTOLIC (NORMALS) SYSTOLIC (NORMALS) IVSd 0.9 (0.6-1.2) LA Diam 3.2 (1.9-4.0) LVEF 60-69% LVIDd 3.4 (3.5-5.7) LVIDs 2.6 (2.0-3.5) %FS 24% LVPWd 0.9 (0.6-1.2) Ao Diam 2.7 (2.0-3.7) 2 DIMENSIONAL ASSESSMENT: RIGHT ATRIUM: NORMAL LEFT ATRIUM: NORMAL RIGHT VENTRICLE: NORMAL LEFT VENTRICLE: NORMAL TRICUSPID VALVE: NORMAL MITRAL VALVE: NORMAL PULMONIC VALVE: NORMAL AORTIC VALVE: NORMAL PERICARDIAL EFFUSION: NONE AORTIC ROOT: NORMAL LEFT VENTRICULAR WALL MOTION: NORMAL. DOPPLER/COLOR FLOW: MILD MITRAL REGURGITATION AND TRICUSPID REGURGITATION. MILD PULMONARY HYPERTENSION, ESTIMATED RIGHT VENTRICULAR SYSTOLIC PRESSURE 40 MMHG. COMMENTS: NORMAL 2D ECHOCARDIOGRAM. MILD MITRAL REGURGITATION AND TRICUSPID REGURGITATION. MILD PULMONARY HYPERTENSION. TECHNOLOGIST: ADRIANA ROSE RDCS
[2018-05-13 12:49] VITALS: BP 113/64; TEMP 97.9
--- NOTE | 2018-05-13 12:54 | EKG ---
Test Date: 2018-05-11 Test Time: 19:35:25 Coil Maker: AARON MEASUREMENT RESULTS: Intervals: Rate: 124 CO: 134 QRSD: 86 QT: 312 QTc: 448 [place]: P: 88 CO: 134 QRS: 39 T: 80 INTERPRETIVE STATEMENTS: Sinus tachycardia Possible Inferior infarct, age undetermined Abnormal ECG Compared to ECG 05/11/2018 18:41:51 ST (T wave) deviation no longer present Myocardial infarct finding still present Electronically Signed On 05-13-18 12:53:04 OCCUPATIONAL THERAPY ASST by Jamil Will
--- NOTE | 2018-05-13 16:16 | P.DS ---
Admission Date: 05/11/18 Discharge Date: 05/13/18 Disposition: ROUTINE DISCHARGE Discharge Condition: FAIR Reason for Admission: COPD exacerbation Consultations: Pulmonology - Problems (1) Acute hypercapnic respiratory failure Onset Date: 05/13/18 Status: Acute (2) COPD exacerbation Onset Date: 10/25/15 Status: Acute (3) Congestive heart failure Onset Date: 12/24/17 Status: Chronic Qualifiers: Heart failure chronicity: unspecified (4) GERD (gastroesophageal reflux disease) Onset Date: 04/01/18 Status: Chronic Qualifiers: Esophagitis presence: without esophagitis Qualified Code(s): K21.9 - Gastro -esophageal reflux disease without esophagitis (5) Cachexia Onset Date: 05/13/18 Status: Chronic Brief History of Present Illness: Patient is 69-year-old gentleman came to the hospital with difficulty breathing. Patient was hypoxic and blood gases revealed patient had hypercapnia. Patient is admitted to the hospital for hypercapnic respiratory failure. Patient is been in the hospital multiple occasions. He remains cachectic in continues to have a lot of difficulty with his breathing. With a BiPAP she is feeling better. Will continue on BiPAP and then reassess him in the morning. Hospital Course: Overall during the hospital stay patient remained stable Patient was initially admitted to the hospital for acute respiratory failure most likely secondary to hypoxemia most likely secondary to worsening idiopathic pulmonary fibrosis. Patient was seen here by pulmonology who recommended patient be started on BiPAP along with steroids. Patient had nebulizer steroids the BiPAP placed on and was weaned to nasal cannula successfully. Was then transferred to the regular floor from the ICU. Patient patient did well overall on the floor. Was weaned off to nasal cannula and was saturating well. Patient thus was discharged home under stable condition was asked to continue taking prednisone 20 mg b.i.d. and his inhalers. Patient was asked to follow up with pulmonology in about 1-2 days post discharge as well. Patient demonstrated understanding and was doing well and thus was discharged home under stable Vital Signs/Physical Exam: Temp Pulse Resp BP Pulse Ox 97.9 F 105 H 22 H 113/64 96 05/13/18 12:00 05/13/18 12:00 05/13/18 12:00 05/13/18 12:00 05/13/18 12:00 General: Alert, In no apparent distress HEENT: Atraumatic, PERRLA, EOMI Neck: Supple, JVD not distended Respiratory: Clear to auscultation bilaterally, Normal air movement Cardiovascular: Regular rate/rhythm, Normal S1 S2 Gastrointestinal: Normal bowel sounds, No tenderness Musculoskeletal: No tenderness Integumentary: No rashes Neurological: Normal speech, Normal tone, Normal affect Lymphatics: No axilla or inguinal lymphadenopathy Laboratory Data at Discharge: WBC 6.5 K/uL (4.3-10.9) D 05/12/18 04:46 Hgb 14.8 g/dL (13.6-17.9) 05/12/18 04:46 Hct 44.0 % (39.6-49.0) 05/12/18 04:46 Plt Count 291 K/uL (152-406) D 05/12/18 04:46 PT 12.6 SECONDS (9.5-12.5) H 05/11/18 18:45 INR 1.07 05/11/18 18:45 Sodium 139 mmol/L (136-145) 05/12/18 04:46 Potassium 4.6 mmol/L (3.5-5.1) 05/12/18 04:46 BUN 28 mg/dL (7-18) H 05/12/18 04:46 Creatinine 0.83 mg/dL (0.55-1.3) 05/12/18 04:46 Glucose 128 mg/dL (74-106) H 05/12/18 04:46 Magnesium 2.4 mg/dL (1.8-2.4) 05/11/18 18:45 Total Bilirubin 0.7 mg/dL (0.2-1.0) 05/12/18 04:46 AST 22 U/L (15-37) 05/12/18 04:46 ALT 21 U/L (12-78) 05/12/18 04:46 Alkaline Phosphatase 90 U/L (45-117) 05/12/18 04:46 Lipase 91 U/L (73-393) 05/11/18 18:45 Home Medications: Albuterol Sulfate [Proair Hfa] 2 puff IH Q6H PRN 04/26/18 Ipratropium/Albuterol Sulfate [Iprat-Albut 0.5-3(2.5) mg/3 ml] 1 inh NEB QID PRN 04/26/18 Levocetirizine Dihydrochloride [24Hr Allergy Relief] 5 mg PO BEDTIME 04/26/18 Pantoprazole Sodium [Protonix] 40 mg PO DAILY 04/26/18 Tamsulosin HCl [Flomax] 1 tab PO BID 04/26/18 Tiotropium [Spiriva Handihaler*] 18 mcg IH DAILY 04/26/18 clonazePAM [Klonopin*] 0.5 mg PO BIDP PRN 04/26/18 Guaifenesin [Mucinex] 600 mg PO DAILY PRN #15 tablet.er 04/27/18 predniSONE [Prednisone*] 20 mg PO BID #10 tab 04/27/18 Arformoterol Tartrate [Brovana] 15 mcg NEB BIDRESP #60 vial.neb 05/13/18 levoFLOXacin [Levaquin*] 500 mg PO DAILY #10 tab 05/13/18 predniSONE [Prednisone*] 20 mg PO BID #20 tab 05/13/18 New Medications: Arformoterol Tartrate [Brovana] 15 mcg NEB BIDRESP #60 vial.neb levoFLOXacin [Levaquin*] 500 mg PO DAILY #10 tab predniSONE [Prednisone*] 20 mg PO BID #20 tab Patient Discharge Instructions: Patient to continue with the Spiriva and albuterolBrovana I have faxed to the pharmacy. Continue with prednisone 10 mg twice a day for at least 10 days. He needs to go home on levofloxacin 500 mg once a day for 7 days Diet: Regular Activity: Ad dalton Followup: Pavel Michelle MD [ACTIVE - CAN ADMIT] - 1-2 Weeks Sid Cervantes MD [UNKNOWN] - 1-2 Weeks
== END 2018-05-13 14:00 | disposition home or self-care (01) | DRG 189 ==
LOC: ER 18:36 → ERHOLD 21:23 → 3RD-ICU 22:25 → 4TH 05-12 14:00
PROVIDERS: ADMIT Hospitalist; ATTEND Family Medicine
PROC: 5A09357 Assistance with Respiratory Ventilation, Less than 24 Consecutive Hours, Continuous Positive Airway Pressure (ICD-10-PCS; principal; 2018-05-11)
DX: J96.22 Acute and chronic respiratory failure with hypercapnia (principal); R64 Cachexia; J44.1 Chronic obstructive pulmonary disease with (acute) exacerbation; Z68.1 Body mass index [BMI] 19.9 or less, adult; J96.21 Acute and chronic respiratory failure with hypoxia; R63.0 Anorexia; I50.9 Heart failure, unspecified; J30.9 Allergic rhinitis, unspecified; K21.9 Gastro-esophageal reflux disease without esophagitis; N40.0 Benign prostatic hyperplasia without lower urinary tract symptoms
CPT/HCPCS: 36415; 71045; 80048; 80053; 80076; 81003; 82805; 83605; 83690; 83735; 83880; 84145; 84484; 85025; 85610; 87040; 93005; 93306; 94640; 94660; 96372; 99285; J1650; J2405; J2920; J2930; J3010; J7030; J7512; J7605

== ENCOUNTER 2018-06-13 15:57 | Inpatient (IN) | payer MEDICARE ==
--- OUTSIDE RECORDS SUMMARY | 2018-06-13 15:58 | XMS REPORT ---
:1940 Author Organization [facility] Address [address] [place] [address] Dr. Carlson [address] [place] [id number] Care Team Providers Name Role Phone Unavailable Unavailable Unavailable Problems This patient has no known problems. Allergies, Adverse Reactions, Alerts This patient has no known allergies or adverse reactions. Medications This patient has no known medications.
[2018-06-13] MEDS ORDERED: LEVALBUTEROL 1.25 MG/3 ML NEB ONE (16:32)
[2018-06-13 16:34] LABS: Absolute Lymphocytes (CBC) 2.7 K/uL (0.7-4.9); Absolute Monocytes 1.1 K/uL (0.1-1.3); Absolute Neutrophil 7.3 K/uL (1.8-8.0); Basophils % 0.9 % (0-1.3); Eosinophils % 9.3 % (0-4.4); Hematocrit 43.7 % (39.6-49.0); Lymphocytes % 21.6 % (15.3-44.8); Monocytes % 8.7 % (3.3-12.3); RBC Red Blood Cell Count 4.71 M/uL (4.33-5.43)
[2018-06-13 16:45] LABS: Protime INR 1.09
[2018-06-13 16:54] LABS: ALT/SGPT 23 U/L (12-78); AST/SGOT 16 U/L (15-37); Albumin 3.4 g/dL (3.4-5.0); Alkaline Phosphatase 90 U/L (45-117); BUN Blood Urea Nitrogen 15 mg/dL (7-18); Bicarbonate 28 mmol/L (21-32); Bilirubin Direct 0.2 mg/dL (0-0.2); Bilirubin Total 0.8 mg/dL (0.2-1.0); CKMB Creatine Kinase MB 2.3 ng/mL (0.3-3.6); Creatine Phosphokinase 51 U/L (39-308); Glucose Level 97 mg/dL (74-106); Lipase 114 U/L (73-393); NT PRO-BNP 121 pg/mL (<450); Potassium 4.7 mmol/L (3.5-5.1); Protein, Total 6.4 g/dL (6.4-8.2); Sodium Level 141 mmol/L (136-145); Troponin (Emerg Dept Use Only) < 0.02 ng/mL (0.0-0.045)
--- NOTE | 2018-06-13 17:02 | RAD REPORT ---
EXAM DESCRIPTION: RAD - Chest Single View - 06/13/2018 4:56 pm CLINICAL HISTORY: SOB Chest pain. COMPARISON: Chest Single View dated 05/11/2018; Chest Single View dated 04/26/2018; Chest Single View dated 03/29/2018; Chest Single View dated 03/28/2018 FINDINGS: Portable technique limits examination quality. Emphysematous changes are present throughout the lungs with blunted left costophrenic angle, unchange d. The heart is normal in size. No displaced fractures. IMPRESSION: COPD.
--- NOTE | 2018-06-13 17:02 | EKG ---
Test Date: 2018-06-13 Test Time: 16:00:53 Budget Analyst: PRESTON MEASUREMENT RESULTS: Intervals: Rate: 141 GA: 118 QRSD: 84 QT: 300 QTc: 459 [place]: P: 86 GA: 118 QRS: 37 T: 72 INTERPRETIVE STATEMENTS: Sinus tachycardia Borderline ECG Compared to ECG 05/11/2018 19:35:25 infarct finding no longer present Electronically Signed On 06-13-18 17:01:39 HOSPITAL RECEIVING CLERK by Jamil Will
[2018-06-13 17:46] LABS: Arterial Blood Carboxyhemoglob 0.8 % (0-1.5); Blood Gas Oxyhemoglobin 97.4 % (94-97); Blood O2 Saturation 99.1 % (92-98.5)
--- NOTE | 2018-06-13 18:11 | EDPHYS ---
Physician Documentation [facility] Name: Raphael Gilbert Age: 77 yrs Sex: Male : 1940 Arrival Date: 06/13/2018 Time: 16:00 Bed 4 Private MD: ED Physician Xander Nguyen HPI: 06/14 20:26 This 77 yrs old Male presents to ER via EMS with complaints of Shortness Of wa Breath. 20:26 The patient has shortness of breath at rest, that occurred at home, and the patient has wa a history of COPD. Onset: The symptoms/episode began/occurred today. Duration: The symptoms are continuous, and are steadily getting worse. The patient's shortness of breath has no apparent modifying factors. Associated signs and symptoms: Pertinent positives: chest pain, Pertinent negatives: non-productive cough, productive cough, dizziness, fever. Severity of symptoms: At their worst the symptoms were severe in the emergency department the symptoms have improved mildly. The patient has experienced similar episodes in the past, multiple times. The patient has not recently seen a physician. pt noted for SOB per EMS. low sats 86% in the field. per EMS, started on c-pap in the field due to persistent distress. pt admits to chest tightness. denies dizziness, cough, fever, or abd pain. Historical: - Allergies: 06/13 16:05 Dilaudid; aj1 - Home Meds: 16:05 clonazepam 0.5 mg Oral tab 1 tab BID PRN [Active]; ProAir HFA inhalation inhalation aj1 [Active]; - PMHx: 16:05 COPD; Hypertension; PE; aj1 - Immunization history:: Adult Immunizations unknown. - Ebola Screening: : Patient denies travel to an Ebola-affected area in the 21 days before illness onset. - Social history:: Smoking status: . - Family history:: not pertinent. - Hospitalizations: : No recent hospitalization is reported. ROS: 06/14 20:29 Constitutional: Negative for fever, chills, and weight loss, Eyes: Negative for injury, wa pain, redness, and discharge, ENT: Negative for injury, pain, and discharge, Neck: Negative for injury, pain, and swelling, Abdomen/GI: Negative for abdominal pain, nausea, vomiting, diarrhea, and constipation, Back: Negative for injury and pain, : Negative for injury, bleeding, discharge, and swelling, MS/Extremity: Negative for injury and deformity, Skin: Negative for injury, rash, and discoloration, Neuro: Negative for headache, weakness, numbness, tingling, and seizure, Psych: Negative for depression, anxiety, suicide ideation, homicidal ideation, and hallucinations. Cardiovascular: Positive for chest pain, Negative for edema, orthopnea, palpitations, paroxysmal nocturnal dyspnea. Respiratory: Positive for shortness of breath, on exertion. wheezing, Negative for cough, hemoptysis, orthopnea. All other systems are negative. Exam: 20:30 Constitutional: This is a well developed, well nourished patient who is awake, alert, wa and in no acute distress. Head/Face: Normocephalic, atraumatic. Eyes: Pupils equal round and reactive to light, extra-ocular motions intact. Lids and lashes normal. Conjunctiva and sclera are non-icteric and not injected. Cornea within normal limits. Periorbital areas with no swelling, redness, or edema. ENT: Nares patent. No nasal discharge, no septal abnormalities noted. Tympanic membranes are normal and external auditory canals are clear. Oropharynx with no redness, swelling, or masses, exudates, or evidence of obstruction, uvula midline. Mucous membranes moist. Neck: Trachea midline, no thyromegaly or masses palpated, and no cervical lymphadenopathy. Supple, full range of motion without nuchal rigidity, or vertebral point tenderness. No Meningismus. Chest/axilla: Normal chest wall appearance and motion. Nontender with no deformity. No lesions are appreciated. Abdomen/GI: Soft, non-tender, with normal bowel sounds. No distension or tympany. No guarding or rebound. No evidence of tenderness throughout. Back: No spinal tenderness. No costovertebral tenderness. Full range of motion. Skin: Warm, dry with normal turgor. Normal color with no rashes, no lesions, and no evidence of cellulitis. MS/ Extremity: Pulses equal, no cyanosis. Neurovascular intact. Full, normal range of motion. Neuro: Awake and alert, GCS 15, oriented to person, place, time, and situation. Cranial nerves II-XII grossly intact. Motor strength 5/5 in all extremities. Sensory grossly intact. Cerebellar exam normal. Normal gait. Psych: Awake, alert, with orientation to person, place and time. Behavior, mood, and affect are within normal limits. 20:30 Cardiovascular: Rate: tachycardic, Rhythm: regular, Pulses: no pulse deficits are appreciated, Heart sounds: normal, Edema: is not appreciated, JVD: is not appreciated. 20:30 Respiratory: severe repiratory distress is noted, Respirations: intercostal retractions, Breath sounds: decreased breath sounds, that are severe, wheezing: that is severe, Respiratory rate: tachypneic Vital Signs: 06/13 16:05 BP 154 / 116; Pulse 148; Resp 32; Temp 97.9; Pulse Ox 98% on BiPAP; Height 5 ft. 7 in. aj1 (170.18 cm) (R); 16:26 BP 108 / 73; Pulse 130; Resp 23; Pulse Ox 98% on BiPAP; aj1 17:00 BP 98 / 79; Pulse 128; Resp 24; Pulse Ox 99% on BiPAP; ph 17:25 BP 106 / 80; Pulse 119; Resp 24; Pulse Ox 100% on BiPAP; ph 18:00 BP 116 / 75; Pulse 118; Resp 18; Pulse Ox 99% on BiPAP; aj1 18:30 BP 108 / 70; Pulse 115; Resp 20; Pulse Ox 100% on BiPAP; aj1 19:00 BP 145 / 82; Pulse 112; Resp 18; Pulse Ox 100% on BiPAP; aj1 19:30 BP 122 / 80; Pulse 118; Resp 16; Pulse Ox 100% on BiPAP; aj1 20:00 BP 125 / 77; Pulse 112; Resp 16; Pulse Ox 100% on BiPAP; aj1 20:30 BP 123 / 88; Pulse 109; Resp 20 S; Pulse Ox 99% on BiPAP; bb 21:00 BP 123 / 84; Pulse 108; Resp 14; Pulse Ox 100% on BiPAP; aj1 MDM: 16:04 Patient medically screened. nv 06/14 20:31 Differential diagnosis: asthma, Bronchitis CHF exacerbation, Chronic Obstructive wa Pulmonary Disease Myocardial Infarction pneumonia, Pneumothorax pulmonary edema, reactive airway disease, Sepsis Unstable Angina. 20:31 Data reviewed: vital signs, nurses notes, lab test result(s), EKG, radiologic studies. nv Test interpretation: by ED physician or midlevel provider: CXR noted for COPD. labs noted for mild leukocytosis. ABG noted with with mild CO2 retention. Response to treatment: the patient's symptoms have markedly improved after treatment. Physician consultation: Amanda Osullivan MD. Admission orders: after a detailed discussion of the patient's condition and case, the admit orders are written by me. Special discussion: treated with nebs. receive Solu-Medrol in route. Empiric abx coverage initiated. will admit for further eval. pt noted texting on his phone, alert, improved, on his BIPAP at time of admit. will consider weaning. 20:34 Test interpretation: by ED physician or midlevel provider: EKG: interpreted by me: darleen sinus tach at 141 with non-specific ST-T changes. . 06/13 16:09 Order name: ABG; Complete Time: 20:25 06/13 16:09 Order name: Blood Culture Adult (2) 06/13 16:09 Order name: BMP; Complete Time: 17:50 06/13 16:09 Order name: CBC with Diff; Complete Time: 17:50 06/13 16:09 Order name: Ckmb; Complete Time: 17:50 06/13 16:09 Order name: CPK; Complete Time: 17:50 06/13 16:09 Order name: D-Dimer; Complete Time: 17:50 06/13 16:09 Order name: Hepatic Function; Complete Time: 17:50 06/13 16:09 Order name: Lipase; Complete Time: 17:50 06/13 16:09 Order name: Magnesium; Complete Time: 17:50 06/13 16:09 Order name: NT PRO-BNP; Complete Time: 17:50 06/13 16:09 Order name: PT-INR; Complete Time: 17:50 06/13 16:09 Order name: Ptt, Activated; Complete Time: 17:51 06/13 16:09 Order name: Troponin (emerg Dept Use Only); Complete Time: 17:51 06/13 16:09 Order name: Call RT 06/13 16:09 Order name: BIPAP 06/13 16:09 Order name: XRAY CXR (1 view); Complete Time: 17:50 06/13 16:09 Order name: EKG; Complete Time: 16:11 06/13 16:09 Order name: Cardiac monitoring; Complete Time: 16:25 06/13 16:09 Order name: EKG - Nurse/Tech; Complete Time: 16: nv 06/13 16:09 Order name: IV Saline Lock; Complete Time: 16 nv 06/13 16:09 Order name: Labs collected and sent; Complete Time: 16 nv 06/13 16:09 Order name: O2 Per Protocol; Complete Time: 16: nv 06/13 16:09 Order name: O2 Sat Monitoring; Complete Time: nv Administered Medications: 06/13 16:24 Not Given (Given by EMS, clarified with DR. Nguyen): SOLU-Medrol 125 mg IVP once [facility] 16:24 CANCELLED (Other Intervention Used): Albuterol 1.25 mg Inhalation once [facility] 16:25 Drug: Xopenex 1.25 mg Route: Inhalation; aj 19:10 Drug: Rocephin - (cefTRIAXone) 2 grams Route: IVPB; Infused Over: 30 mins; Site: right [facility] antecubital; 19:15 Follow up: IV Status: Completed infusion; IV Intake: 20ml ; given SIVP per hospital [facility] policy 19:10 Drug: Zithromax 500 mg Route: IVPB; Infused Over: 1 hrs; Site: right antecubital; aj 20:15 Follow up: IV Status: Completed infusion; IV Intake: 250ml [facility] Disposition: 06/14 20:34 Critical Care:. nv Disposition: 06/13/18 18:10 Hospitalization ordered by Amanda Osullivan for Inpatient Admission. Preliminary diagnosis is Acute COPD Exacerbation. - Bed requested for Telemetry/MedSurg (Inpatient). - Status is Inpatient Admission. bb - Condition is Stable. - Problem is an acute exacerbation. - Symptoms have improved. UTI on Admission? No Critical care time excluding procedures: 20:34 Critical care time: Bedside Care: 15 minutes, Consultation: 10 minutes, Family wa Intervention: 5 minutes. Total time: 30 minutes Signatures: Dispatcher [employer] EDMS Viviana Ku RN RN aj1 Olive Braden RN RN kl Ballard, Brenda, RN RN bb Hall, Patricia, RN RN ph Appiah, William, MD MD nv Corrections: (The following items were deleted from the chart) 06/13 16:24 16:09 Albuterol 1.25 mg Inhalation once ordered. [facility] 18:28 16:48 BASIC METABOLIC PANEL+C.LAB.BRZ ordered. EDPR EDMS 19:46 18:10 Hospitalization Ordered by Amanda Osullivan MD for Inpatient Admission. Preliminary kl diagnosis is Acute COPD Exacerbation. Bed requested for Telemetry/MedSurg (Inpatient). Status is Inpatient Admission. Condition is Stable. Problem is an acute exacerbation. Symptoms have improved. UTI on Admission? No. nv 21:23 19:46 06/13/2018 18:10 Hospitalization Ordered by Amanda Osullivan MD for Inpatient bb Admission. Preliminary diagnosis is Acute COPD Exacerbation. Bed requested for Telemetry/MedSurg (Inpatient). Status is Inpatient Admission. Condition is Stable. Problem is an acute exacerbation. Symptoms have improved. UTI on Admission? No. kl
--- NOTE | 2018-06-13 18:11 | ER ---
Nurse's Notes [facility] Unit Name: Raphael Gilbert Age: 77 yrs Sex: Male : 1940 Arrival Date: 06/13/2018 Time: 16:00 Bed 4 Private MD: Diagnosis: Acute COPD Exacerbation Presentation: 06/13 16:00 Presenting complaint: EMS states: Patient has been having shortness of breath since aj1 this morning. Patient was 86% on room air upon EMS arrival. Patient's breathing became more labored en route. Patient was given albuterol and atrovent nebulizer treatments, Solumedrol 125 mg IV and Nitro 0.4mg SL. Patient's O2 remained low and breathing remained labored so patient was started on C-PAP. Patient placed on Bi-PAP upon arrival to ER, O2 sat 98% on Bi-PAP. Breathing remains labored at this time. Transition of care: patient was not received from another setting of care. Onset of symptoms was June 13, 2018. Risk Assessment: Do you want to hurt yourself or someone else? Patient reports no desire to harm self or others. Initial Sepsis Screen: Does the patient meet any 2 criteria? RR > 20 per min. HR > 90 bpm. Does the patient have a suspected source of infection? No. Patient's initial sepsis screen is negative. Care prior to arrival: None. 16:00 Method Of Arrival: EMS: [facility] aj1 16:00 Acuity: MEGHAN 1 aj1 Triage Assessment: 16:05 General: Appears distressed, uncomfortable, Behavior is cooperative, anxious, restless. aj1 Pain: Denies pain. Neuro: Level of Consciousness is awake, alert, obeys commands. Cardiovascular: Heart tones S1 S2 present Patient's skin is warm and dry. Rhythm is sinus tachycardia. Respiratory: Reports shortness of breath at rest cough that is persistent Airway is patent Respiratory effort is even, labored, Respiratory pattern is regular, symmetrical, tachypnea Breath sounds with wheezes bilaterally. Onset: The symptoms/episode began/occurred suddenly, the patient has severe shortness of breath. Historical: - Allergies: 16:05 Dilaudid; aj1 - Home Meds: 16:05 clonazepam 0.5 mg Oral tab 1 tab BID PRN [Active]; ProAir HFA inhalation inhalation aj1 [Active]; - PMHx: 16:05 COPD; Hypertension; PE; aj1 - Immunization history:: Adult Immunizations unknown. - Ebola Screening: : Patient denies travel to an Ebola-affected area in the 21 days before illness onset. - Social history:: Smoking status: . - Family history:: not pertinent. - Hospitalizations: : No recent hospitalization is reported. Screenin:05 Abuse screen: Denies threats or abuse. Denies injuries from another. Nutritional aj1 screening: No deficits noted. Tuberculosis screening: No symptoms or risk factors identified. 17:26 Fall Risk No fall in past 12 months (0 pts). No secondary diagnosis (0 pts). IV access ph (20 points). Ambulatory Aid- None/Bed Rest/Nurse Assist (0 pts). Gait- Weak (10 pts.). Mental Status- Oriented to own ability (0 pts). Total Lira Fall Scale indicates Low Risk Score (25-44 pts). Fall prevention measures have been instituted. Side Rails Up X 2 Frequent Obs/Assesments occuring As available Patient and Family Educated on Fall Prevention Program and strategies. Assessment: 16:05 General: Appears distressed, uncomfortable, Behavior is cooperative, anxious, restless. aj1 Pain: Denies pain. Neuro: Level of Consciousness is awake, alert, obeys commands. Cardiovascular: Heart tones S1 S2 present Patient's skin is warm and dry. Rhythm is sinus tachycardia. Respiratory: Reports shortness of breath at rest cough that is hacking, persistent Airway is patent Respiratory effort is even, labored, with retractions, Respiratory pattern is regular, symmetrical, tachypnea Breath sounds with wheezes bilaterally. the patient has severe shortness of breath. GI: No signs and/or symptoms were reported involving the gastrointestinal system. : No signs and/or symptoms were reported regarding the genitourinary system. EENT: No signs and/or symptoms were reported regarding the EENT system. Derm: No signs and/or symptoms reported regarding the dermatologic system. Skin is dusky. Musculoskeletal: No signs and/or symptoms reported regarding the musculoskeletal system. Circulation, motion, and sensation intact. 17:05 Reassessment: Patient appears in no apparent distress at this time. Patient and/or aj1 family updated on plan of care and expected duration. Pain level reassessed. Patient is alert, oriented x 3, equal unlabored respirations, skin warm/dry/pink. Patient states feeling better. Cardiovascular: Patient's skin is warm and dry. Rhythm is sinus tachycardia. Respiratory: Airway is patent Respiratory effort is even, unlabored, Respiratory pattern is regular, symmetrical, Breath sounds with wheezes bilaterally. the patient has mild shortness of breath. 18:05 Reassessment: Patient and/or family updated on plan of care and expected duration. Pain aj1 level reassessed. General: Appears in no apparent distress. comfortable, Behavior is calm, cooperative, appropriate for age. Pain: Denies pain. Neuro: Level of Consciousness is awake, alert, obeys commands. Cardiovascular: Patient's skin is warm and dry. Rhythm is sinus tachycardia. Respiratory: Airway is patent Respiratory effort is even, unlabored, Respiratory pattern is regular, symmetrical, Breath sounds with wheezes the patient has mild shortness of breath. Derm: Skin is pink, warm \T\ dry. normal. Musculoskeletal: Circulation, motion, and sensation intact. 19:05 Reassessment: Patient appears in no apparent distress at this time. No changes from aj1 previously documented assessment. Patient and/or family updated on plan of care and expected duration. Pain level reassessed. Patient is alert, oriented x 3, equal unlabored respirations, skin warm/dry/pink. 20:05 Reassessment: Patient and/or family updated on plan of care and expected duration. Pain aj1 level reassessed. General: Appears in no apparent distress. comfortable, Behavior is calm, cooperative, appropriate for age. Pain: Denies pain. Neuro: Level of Consciousness is awake, alert, obeys commands. Cardiovascular: Patient's skin is warm and dry. Rhythm is sinus tachycardia. Respiratory: Airway is patent Respiratory effort is even, unlabored, Respiratory pattern is regular, symmetrical, Breath sounds with wheezes bilaterally. the patient has mild shortness of breath. Derm: Skin is pink, warm \T\ dry. normal. Musculoskeletal: Circulation, motion, and sensation intact. 21:04 Reassessment: pt is A\T\O x 4, resp assisted with Bipap at 45% FIO, IV sites intact, no bb erythema or edema noted report called to Eliza CARREON for room 431. Vital Signs: 16:05 BP 154 / 116; Pulse 148; Resp 32; Temp 97.9; Pulse Ox 98% on BiPAP; Height 5 ft. 7 in. aj1 (170.18 cm) (R); 16:26 BP 108 / 73; Pulse 130; Resp 23; Pulse Ox 98% on BiPAP; aj1 17:00 BP 98 / 79; Pulse 128; Resp 24; Pulse Ox 99% on BiPAP; ph 17:25 BP 106 / 80; Pulse 119; Resp 24; Pulse Ox 100% on BiPAP; ph 18:00 BP 116 / 75; Pulse 118; Resp 18; Pulse Ox 99% on BiPAP; aj1 18:30 BP 108 / 70; Pulse 115; Resp 20; Pulse Ox 100% on BiPAP; aj1 19:00 BP 145 / 82; Pulse 112; Resp 18; Pulse Ox 100% on BiPAP; aj1 19:30 BP 122 / 80; Pulse 118; Resp 16; Pulse Ox 100% on BiPAP; aj1 20:00 BP 125 / 77; Pulse 112; Resp 16; Pulse Ox 100% on BiPAP; aj1 20:30 BP 123 / 88; Pulse 109; Resp 20 S; Pulse Ox 99% on BiPAP; bb 21:00 BP 123 / 84; Pulse 108; Resp 14; Pulse Ox 100% on BiPAP; aj1 ED Course: 16:00 Patient arrived in ED. aj1 16:04 Xander Nguyen MD is Attending Physician. wa 16:04 Triage completed. aj1 16:05 Arm band placed on. aj1 16:05 Patient has correct armband on for positive identification. Bed in low position. Call aj1 light in reach. Side rails up X 1. coater on. Pulse ox on. NIBP on. 16:05 Maintain EMS IV. Dressing intact. Good blood return noted. Site clean \T\ dry. Gauge \T\ aj 1 site: 20 g to left FA. 16:05 Inserted saline lock: 20 gauge in left forearm, using aseptic technique. Blood aj1 collected. 16:08 EKG done, by waste management recycling technician. reviewed by Xander Nguyen MD. sm3 16:10 Viviana Ku, LAURI is Primary Nurse. aj1 16:57 XRAY CXR (1 view) In Process Unspecified. EDMS 18:09 Amanda Osullivan MD is Hospitalizing Provider. wa 21:03 No provider procedures requiring assistance completed. Patient admitted, IV remains in bb place. Administered Medications: 16:24 Not Given (Given by EMS, clarified with DR. Nguyen): SOLU-Medrol 125 mg IVP once [facility] 16:24 CANCELLED (Other Intervention Used): Albuterol 1.25 mg Inhalation once [facility] 16:25 Drug: Xopenex 1.25 mg Route: Inhalation; aj1 19:10 Drug: Rocephin - (cefTRIAXone) 2 grams Route: IVPB; Infused Over: 30 mins; Site: right [facility] antecubital; 19:15 Follow up: IV Status: Completed infusion; IV Intake: 20ml ; given SIVP per hospital [facility] policy 19:10 Drug: Zithromax 500 mg Route: IVPB; Infused Over: 1 hrs; Site: right antecubital; aj1 20:15 Follow up: IV Status: Completed infusion; IV Intake: 250ml [facility] Intake: 19:15 IV: 20ml; Total: 20ml. aj1 20:15 IV: 250ml; Total: 270ml. [facility] Outcome: 18:10 Decision to Hospitalize by Provider. mi 21:03 Admitted to Tele accompanied by tech, via stretcher, room 431, with oxygen, with chart, bb Report called to Eliza CARREON 21:03 Condition: stable 21:23 Patient left the ED. bb Signatures: Dispatcher [employer] EDViviana Maravilla RN RN aj1 Chani Covington RN RN bb Nelida Munoz RN RN Xander Nguyen MD MD wa Montes, Lolly 3
[2018-06-13] MEDS ORDERED: CEFTRIAXONE/SWI 1gm 2 GM/20 ML SYR ONE (19:08)
[2018-06-13] MEDS ORDERED: AZITHROMYCIN 500 MG/250 ML BAG ONE (19:08)
--- NOTE | 2018-06-13 20:43 | P.HP ---
Certification for Inpatient Patient admitted to: Inpatient With expected LOS: >2 Midnights Practitioner: I am a practitioner with admitting privileges, knowledge of patient current condition, hospital course, and medical plan of care. Services: Services provided to patient in accordance with Admission requirements found in Title 42 Section 412.3 of the Code of Federal Regulations Patient History Date of Service: 06/13/18 Reason for admission: COPD exacerbation History of Present Illness: Mr Gilbert is a 77 years old male with history of COPD, HTN, PE, who start with progressive SOB and more productive cough than usual about 4 days ago. He change his sputum color from whitish to greenish. He denied fever or chills. The patient has been using breathing treatment more often without significant improvement. This morning, he was more SOB. When EMS arrived found the patient dyspneic, with O2 sat 86% on RA. At arrival to ER the patient was afebrile, tachycardic and tachypneic, then he was placed on BiPAP. CXR shows extensive signs of COPD, without acute infiltrate. Lab work remarkable for leukocytosis 12.4K. At my encounter, he was feeling better already. Allergies hydromorphone HCl [From Dilaudid] Adverse Reaction (Severe, Verified 05/12/18 02 :05) Itching Home medications list reviewed: Yes Home Medications: Albuterol Sulfate [Proair Hfa] 2 puff IH Q6H PRN 04/26/18 Ipratropium/Albuterol Sulfate [Iprat-Albut 0.5-3(2.5) mg/3 ml] 1 inh NEB QID PRN 04/26/18 Levocetirizine Dihydrochloride [24Hr Allergy Relief] 5 mg PO BEDTIME 04/26/18 Pantoprazole Sodium [Protonix] 40 mg PO DAILY 04/26/18 Tamsulosin HCl [Flomax] 1 tab PO BID 04/26/18 Tiotropium [Spiriva Handihaler*] 18 mcg IH DAILY 04/26/18 clonazePAM [Klonopin*] 0.5 mg PO BIDP PRN 04/26/18 Guaifenesin [Mucinex] 600 mg PO DAILY PRN #15 tablet.er 04/27/18 predniSONE [Prednisone*] 20 mg PO BID #10 tab 04/27/18 Arformoterol Tartrate [Brovana] 15 mcg NEB BIDRESP #60 vial.neb 05/13/18 levoFLOXacin [Levaquin*] 500 mg PO DAILY #10 tab 05/13/18 predniSONE [Prednisone*] 20 mg PO BID #20 tab 05/13/18 - Past Medical/Surgical History Diabetic: No -: Allergic rhinitis -: COPD -: Pulmonary embolism -: Gastroesophageal reflux disease -: Benign prostatic hypertrophy -: Rib surgery -: appendectomy -: Pulmonary embolectomy - Family History Father -: Heart disease, GI disease Mother -: Heart disease Sister -: Heart disease - Social History Smoking Status: Former smoker Alcohol use: Yes CD- Drugs: No Caffeine use: Yes Place of Residence: Home Review of Systems 10-point ROS is otherwise unremarkable Physical Examination - Physical Exam General: Alert, In no apparent distress HEENT: Atraumatic, PERRLA, Mucous membr. moist/pink, EOMI, Sclerae nonicteric Neck: Supple, 2+ carotid pulse no bruit, No LAD, Without JVD or thyroid abnormality Respiratory: Diminished, Expiratory wheezes (bilateral scattered wheezing) Cardiovascular: Normal S1 S2, No gallops Gastrointestinal: Normal bowel sounds, No tenderness Musculoskeletal: No tenderness Integumentary: No rashes Neurological: Normal speech, Normal strength at 5/5 x4 extr, Normal tone, Normal affect Lymphatics: No axilla or inguinal lymphadenopathy - Studies Laboratory Data (last 24 hrs) 06/13/18 16:48: Sodium Cancelled, Potassium Cancelled, BUN Cancelled, Creatinine Cancelled, Glucose Cancelled 06/13/18 16:04: PT 12.9 H, INR 1.09, APTT 33.6 06/13/18 16:04: WBC 12.4 H, Hgb 14.6, Hct 43.7, Plt Count 304 06/13/18 16:04: Sodium 141, Potassium 4.7, BUN 15, Creatinine 0.90, Glucose 97, Magnesium 2.0, Total Bilirubin 0.8, AST 16, ALT 23, Alkaline Phosphatase 90, Lipase 114 Assessment and Plan - Problems (Diagnosis) (1) HTN (hypertension) Current Visit: Yes Status: Acute Qualifiers: Hypertension type: essential hypertension Qualified Code(s): I10 - Essential (primary) hypertension (2) Acute and chronic respiratory failure Onset Date: 06/18/17 Current Visit: No Status: Acute Qualifiers: Respiratory failure complication: hypoxia (3) COPD exacerbation Onset Date: 10/25/15 Current Visit: No Status: Acute - Plan The patient will be admitted to the hospital due to COPD exacerbation. Awaiting lactate and procalcitonin level. He has leukocytosis but no fever. Continue IV steroids and breathing tretments. Also BiPAP as needed. Check influenza screening. - Advance Directives Does patient have a Living Will: No Does patient have a Durable POA for Healthcare: No - Code Status/Comfort Care Code Status Assessed: Yes Code Status: Full Code
[2018-06-13] MEDS: ALBUTEROL 2.5 MG/3 ML NEB SOL NEB SCH (21:49)
[2018-06-13] MEDS: IPRATROPIUM BROM 0.5MG/2.5ML NEB SCH (21:49)
[2018-06-13] MEDS ORDERED: ONDANSETRON 4 MG/2 ML VIAL IV PRN (21:49)
[2018-06-13] MEDS ORDERED: ACETAMINOPHEN 500 MG TAB PO PRN (21:49)
[2018-06-14] MEDS: METHYLPREDNISOLONE 40 MG INJ IV SCH ×2 (00:09→09:00)
[2018-06-14] MEDS: ALBUTEROL 2.5 MG/3 ML NEB SOL NEB SCH ×4 (01:02→19:29)
[2018-06-14] MEDS: IPRATROPIUM BROM 0.5MG/2.5ML NEB SCH ×4 (01:02→19:29)
[2018-06-14 05:54] LABS: Absolute Lymphocytes (CBC) 0.5 K/uL (0.7-4.9); Absolute Monocytes 0.1 K/uL (0.1-1.3); Basophils % 0.2 % (0-1.3); Eosinophils % 0.1 % (0-4.4); Hematocrit 39.9 % (39.6-49.0); Lymphocytes % 8.1 % (15.3-44.8); MPV 8.8 fL (7.6-11.3); Monocytes % 1.6 % (3.3-12.3); RBC Red Blood Cell Count 4.39 M/uL (4.33-5.43)
[2018-06-14 06:05] LABS: Potassium 4.5 mmol/L (3.5-5.1)
[2018-06-14 07:33] LABS: Blood Morphology Comment NOT SEEN (NOT SEEN); Platelet Estimate ADEQ; Urine White Blood Cell Casts OK
[2018-06-14] MEDS: ENOXAPARIN 40 MG/0.4 ML SQ SCH (10:17)
--- NOTE | 2018-06-14 10:53 | P.CNS ---
Date of Consult: 06/14/18 Chief Complaint: COPD exacerbation History of Present Illness: Patient is 77 years of age well known to me with a history of terminal COPD admitted with acute on chronic shortness of breath he does use Spiriva at home nebulized bronchodilators complaining of cough congestion is feeling better since admission denies any lower extremity edema no fever or chills patient has tried all bronchodilators at home with no relief in the he states that the long- acting nebulized bronchodilators are i extensor Allergies hydromorphone HCl [From Dilaudid] Adverse Reaction (Severe, Verified 05/12/18 02 :05) Itching Home Medications: Albuterol Sulfate [Proair Hfa] 2 puff IH Q6H PRN 04/26/18 Ipratropium/Albuterol Sulfate [Iprat-Albut 0.5-3(2.5) mg/3 ml] 1 inh NEB QID PRN 04/26/18 Levocetirizine Dihydrochloride [24Hr Allergy Relief] 5 mg PO BEDTIME 04/26/18 Pantoprazole Sodium [Protonix] 40 mg PO DAILY 04/26/18 Tamsulosin HCl [Flomax] 1 tab PO BID 04/26/18 Tiotropium [Spiriva Handihaler*] 18 mcg IH DAILY 04/26/18 clonazePAM [Klonopin*] 0.5 mg PO BIDP PRN 04/26/18 Guaifenesin [Mucinex] 600 mg PO DAILY PRN #15 tablet.er 04/27/18 Arformoterol Tartrate [Brovana] 15 mcg NEB BIDRESP #60 vial.neb 05/13/18 predniSONE [Prednisone*] 20 mg PO BID #20 tab 05/13/18 - Past Medical/Surgical History Diabetic: No -: Allergic rhinitis -: COPD -: Pulmonary embolism -: Gastroesophageal reflux disease -: Benign prostatic hypertrophy -: Rib surgery -: appendectomy -: Pulmonary embolectomy - Family History Father Medical History: Heart disease, GI disease Mother Medical History: Heart disease Sister Medical History: Heart disease - Social History Smoking Status: Unknown if ever smoked Alcohol use: Yes CD- Drugs: No Caffeine use: Yes Place of Residence: Home Review of Systems Weight loss General: Weakness Respiratory: Cough, Shortness of Breath Gastrointestinal: Nausea Physical Examination Temp Pulse Resp BP Pulse Ox 98.7 F 96 H 20 125/71 98 06/14/18 08:00 06/14/18 08:00 06/14/18 08:00 06/14/18 08:00 06/14/18 08:00 General: Alert, Moderate distress HEENT: Atraumatic Neck: Supple Respiratory: Diminished, Expiratory wheezes Cardiovascular: No edema, Regular rate/rhythm, Normal S1 S2 Gastrointestinal: Normal bowel sounds, Soft and benign Laboratory Data (last 24 hrs) 06/13/18 16:48: Sodium Cancelled, Potassium Cancelled, BUN Cancelled, Creatinine Cancelled, Glucose Cancelled 06/13/18 16:04: PT 12.9 H, INR 1.09, APTT 33.6 06/13/18 16:04: WBC 12.4 H, Hgb 14.6, Hct 43.7, Plt Count 304 06/13/18 16:04: Sodium 141, Potassium 4.7, BUN 15, Creatinine 0.90, Glucose 97, Magnesium 2.0, Total Bilirubin 0.8, AST 16, ALT 23, Alkaline Phosphatase 90, Lipase 114 - Problems (1) COPD exacerbation Onset Date: 06/14/18 Current Visit: Yes Status: Acute Plan: This patient is 77 years of age admitted with exacerbation of COPD compliant with this medication does not smoke patient has terminal COPD vital signs all reviewed labs unremarkable patient has COPD and the x-ray chronic interstitial changes blood gases I recommend adding a low-dose prednisone 10 mg with vito I think he will benefit from low-dose prednisone 10 mg a day in addition to Vito p.o. 200 mg once a day
[2018-06-14] MEDS: THEOPHYLLINE SR 100 MG TAB PO SCH (11:25)
--- NOTE | 2018-06-14 18:05 | PN ---
Date of Progress Note: 06/14/2018 History: The patient seen and examined. Chart reviewed and case discussed with RN and Dr. Michelle. The patient overall states he is doing better, still having some shortness of breath and cough. Medications: List reviewed. Code Status: Full. Physical Examination: Vital Signs: Temperature 98.7, heart rate 96, blood pressure 125/71, respirations 20, O2 98% on 3 L via nasal cannula. General: Awake, alert, oriented x3. Elderly male, ill-appearing, cachectic. BMI 18.6. CV: S1, S2. Peripheral pulses present. Regular rate and rhythm. Respiratory: Diminished breath sounds, wheezing heard. No use of accessory muscles. Gastrointestinal: Abdomen is soft, nontender, nondistended. Positive bowel sounds. Extremities: No clubbing, cyanosis, or edema. Neuro: Cranial nerves 2-12 intact grossly. No focal neurological deficit. Speech is normal. Skin: No rashes. Normal skin turgor. Laboratory Data: Sodium 140, potassium 4.5, chloride 106, CO2 27, BUN 25, creatinine 0.84, glucose 1 61, calcium 8.4. WBC 5.6, H and H 13.7 and 39.9, platelets 268. Blood cultures pending. Influenza screen is negative. Assessment And Plan: A 77-year-old male with: 1.Acute on chronic respiratory failure secondary to chronic obstructive pulmonary disease with hypox ia. The patient only uses oxygen at night, currently requiring 3 L throughout the day. 2.Acute chronic obstructive pulmonary disease exacerbation. Appreciate Dr. Michelle's input. We wi ll continue with nebulizers. The patient has been added on theophylline. Continue steroids and marcella tor O2 levels. Wean off oxygen as tolerated. 3.Essential hypertension, stable. 4.Malnutrition. BMI 18.6. 5.Gastroesophageal reflux disease without esophagitis. We will continue PPI. 6.Benign prostatic hypertrophy. Continue tamsulosin. 7.Gastrointestinal and deep vein thrombosis prophylaxes addressed. Plan: Continue current treatment, management has been updated. Likely discharge within 24-48 hours. /JANIA Voice ID: [id number] Report ID: [id number]
[2018-06-14] MEDS: ARFORMOTEROL TARTRATE 15 MCG/2 ML VIAL.NEB NEB SCH (19:30)
[2018-06-14] MEDS: predniSONE 20 MG TAB PO SCH (21:07)
[2018-06-14] MEDS: CETIRIZINE HCL 5 MG TABLET PO SCH (21:07)
[2018-06-14] MEDS: TAMSULOSIN 0.4 MG SR CAP PO SCH (21:07)
[2018-06-14] MEDS ORDERED: PANTOPRAZOLE 40MG TABLET PO ONE (21:13)
[2018-06-14] MEDS: clonazePAM 0.5 MG TAB PO PRN (23:31)
[2018-06-15] MEDS: IPRATROPIUM BROM 0.5MG/2.5ML NEB SCH ×4 (01:12→20:06)
[2018-06-15] MEDS: ALBUTEROL 2.5 MG/3 ML NEB SOL NEB SCH ×4 (01:12→20:06)
[2018-06-15 06:29] VITALS: BMI 18.4
[2018-06-15 06:54] LABS: BUN Blood Urea Nitrogen 22 mg/dL (7-18); Bicarbonate 26 mmol/L (21-32); Glucose Level 165 mg/dL (74-106); Potassium 3.9 mmol/L (3.5-5.1); Sodium Level 142 mmol/L (136-145)
[2018-06-15 06:58] LABS: Absolute Lymphocytes (CBC) 0.5 K/uL (0.7-4.9); Absolute Monocytes 0.7 K/uL (0.1-1.3); Absolute Neutrophil 10.5 K/uL (1.8-8.0); Hematocrit 37.2 % (39.6-49.0); RBC Red Blood Cell Count 4.05 M/uL (4.33-5.43)
[2018-06-15] MEDS: ARFORMOTEROL TARTRATE 15 MCG/2 ML VIAL.NEB NEB SCH ×2 (08:08→20:06)
[2018-06-15] MEDS: TAMSULOSIN 0.4 MG SR CAP PO SCH ×2 (09:46→21:14)
[2018-06-15] MEDS: predniSONE 20 MG TAB PO SCH ×2 (09:46→21:14)
[2018-06-15] MEDS: THEOPHYLLINE SR 100 MG TAB PO SCH (09:46)
[2018-06-15] MEDS: ENOXAPARIN 40 MG/0.4 ML SQ SCH (09:46)
[2018-06-15] MEDS: PANTOPRAZOLE 40MG TABLET PO SCH (09:46)
--- NOTE | 2018-06-15 10:36 | P.PN ---
Subjective Date of Service: 06/15/18 Chief Complaint: COPD exacerbation Subjective: Improving (Patient is doing much better no new complaints) Review of Systems Unremarkable Physical Examination - Vital Signs Temperature: 97.9 F Blood Pressure: 107/70 Pulse: 88 Respirations: 22 Pulse Ox (%): 96 - Physical Exam General: Alert, Oriented x3, Mild distress Respiratory: Clear to auscultation bilaterally, Diminished Cardiovascular: No edema Assessment & Plan - Problems (Diagnosis) (1) COPD exacerbation Onset Date: 06/14/18 Current Visit: Yes Status: Acute Plan: Patient is 77 years of age admitted with COPD exacerbation can be discharged home on prednisone 10 mg twice a day for 10 days then 10 mg once a day theophylline 200 mg once a day resume continue with bronchodilators at home antibiotics not needed as room-air saturation is satisfactory follow up with me in 2
--- NOTE | 2018-06-15 18:06 | PN ---
Date of Progress Note: 06/15/2018 Subjective: The patient seen and examined. Chart reviewed and case discussed with RN and Dr. Aubrie brandt. The patient is doing better. Still having some wheezing. Continues to cough. No significant s putum production. Medications: List reviewed. Physical Examination: Vital Signs: Temperature 97.9, heart rate 88, blood pressure 107/70, respiration 22, O2 96% on room air. General: Awake, alert, oriented x3, ill-appearing elderly male, frail, cachectic. BMI 18.5. CV: S1, S2. Regular rate and rhythm. Peripheral pulses weak bilaterally. Respiratory: Diminished breath sounds. Wheezing heard throughout. No use of accessory muscles. No tachypnea. Gastrointestinal: Abdomen is soft, nontender, nondistended. Positive bowel sounds. Extremities: No clubbing, cyanosis, or edema. Neurologic: Nonfocal. Laboratory Data: Sodium 142, potassium 3.9, chloride 108, CO2 26, BUN 22, creatinine 0.79, glucose 1 65, calcium 8.3. WBC 11.7, H and H 12.4 and 37.2, platelets 283, neutrophils 90%. Blood cultures, n o growth to date. Assessment And Plan: A 77-year-old male with: 1.Acute chronic obstructive pulmonary disease exacerbation, improved. His medications have been adj usted. The patient is on theophylline. We will continue steroids, weaned down to p.o. The patient now on room air. 2.Acute on chronic respiratory failure secondary to chronic obstructive pulmonary disease. The sammy ent usually uses oxygen only at night, improving. 3.Essential hypertension, stable. 4.Malnutrition. BMI is 18.5. We will provide protein supplements. 5.Gastroesophageal reflux disease without esophagitis. Continue PPI. 6.Benign prostatic hypertrophy. Continue tamsulosin. 7.Gastrointestinal and deep venous thrombosis prophylaxis, addressed. Plan: Continue to monitor, likely discharge in a.m. /MODArnoldo Voice ID: [id number] Report ID: [id number]
[2018-06-15] MEDS: CETIRIZINE HCL 5 MG TABLET PO SCH (21:14)
[2018-06-15] MEDS: clonazePAM 0.5 MG TAB PO PRN ×2 (21:16→22:56)
[2018-06-16] MEDS: ALBUTEROL 2.5 MG/3 ML NEB SOL NEB SCH ×2 (01:41→07:47)
[2018-06-16] MEDS: IPRATROPIUM BROM 0.5MG/2.5ML NEB SCH ×2 (01:41→07:47)
[2018-06-16 02:47] VITALS: O2SAT 93
[2018-06-16 06:12] LABS: Absolute Lymphocytes (CBC) 0.7 K/uL (0.7-4.9); Absolute Monocytes 0.7 K/uL (0.1-1.3); Absolute Neutrophil 8.3 K/uL (1.8-8.0); Basophils % 0.3 % (0-1.3); Eosinophils % 0.1 % (0-4.4); Hematocrit 38.4 % (39.6-49.0); Lymphocytes % 7.5 % (15.3-44.8); RBC Red Blood Cell Count 4.15 M/uL (4.33-5.43)
[2018-06-16 06:54] LABS: BUN Blood Urea Nitrogen 18 mg/dL (7-18); Bicarbonate 27 mmol/L (21-32); Glucose Level 150 mg/dL (74-106); Potassium 3.9 mmol/L (3.5-5.1); Sodium Level 144 mmol/L (136-145)
[2018-06-16 07:23] LABS: Blood Morphology Comment NOT SEEN (NOT SEEN); Platelet Estimate ADEQ; Urine White Blood Cell Casts OK
[2018-06-16] MEDS: ARFORMOTEROL TARTRATE 15 MCG/2 ML VIAL.NEB NEB SCH (07:47)
[2018-06-16] MEDS: predniSONE 20 MG TAB PO SCH (10:49)
[2018-06-16] MEDS: THEOPHYLLINE SR 100 MG TAB PO SCH (10:49)
[2018-06-16] MEDS: PANTOPRAZOLE 40MG TABLET PO SCH (10:49)
[2018-06-16] MEDS: TAMSULOSIN 0.4 MG SR CAP PO SCH (10:50)
[2018-06-16] MEDS: ENOXAPARIN 40 MG/0.4 ML SQ SCH (10:50)
[2018-06-16 12:32] VITALS: BP 137/74; TEMP 97.7
--- NOTE | 2018-06-17 16:15 | DS ---
Date of Discharge: 06/16/2018 Consultants: Dr. Michelle with Pulmonology. Admitting Diagnoses: 1.Acute chronic obstructive pulmonary disease exacerbation. 2.Essential hypertension. 3.Acute on chronic respiratory failure. Discharge Diagnoses: 1.Acute chronic obstructive pulmonary disease exacerbation, resolving. 2.Acute on chronic respiratory failure secondary to above. 3.Essential hypertension. 4.Malnutrition, body mass index 18.5. 5.Benign prostatic hypertrophy, continue tamsulosin. 6.Gastroesophageal reflux disease without esophagitis, proton pump inhibitor. Hospital Course: The patient is a 77-year-old male with history of COPD, hypertension, and PE, comes in with shortness of breath. The patient was found to be hypoxic at 86% on room air. This is due t o COPD exacerbation. He was started on breathing treatments, nebulizers and IV steroids. The patien t was also seen by Dr. Michelle with Pulmonology. The patient responded well to treatment. He was s lowly weaned off steroids and was switched to oral. His WBC count improved. There was no signs of s epsis. His D-dimer was negative. The patient's culture showed no growth. His influenza screen was negative. The patient overall did well over the course of the hospital stay. He was able to be wean ed off oxygen. He normally only uses oxygen at night. The patient was then stable for discharge. H cydney was able to ambulate without significant shortness of breath. His medications were adjusted. He w ill be added on theophylline and short course of steroids. Medications: List reviewed. Followup: Follow up with primary care physician in 2 to 3 days. Follow up with a retail store clerk, Dr. Michelle in 2 weeks. Return to ER for worsening condition. Diet: Heart healthy. Activity: No strenuous activity. Physical Examination: General: Awake, alert, oriented, in no acute distress. Elderly male, cachectic, frail. CV: S1, S2. No murmurs. Respiratory: Moving air well bilaterally. No wheezing. Gastrointestinal: Abdomen is soft, nontender, nondistended. Positive bowel sounds. Extremities: No clubbing, cyanosis, edema. Neurologic: Nonfocal. Total time spent discharging the patient was 39 minutes. SA/MODL Voice ID: [id number] Report ID: [id number]
== END 2018-06-16 12:53 | disposition home or self-care (01) | DRG 190 ==
LOC: ER 15:57 → ERHOLD 18:23 → 4TH 21:07
PROVIDERS: ADMIT Family Medicine; ATTEND Family Medicine
DX: J44.1 Chronic obstructive pulmonary disease with (acute) exacerbation (principal); J96.21 Acute and chronic respiratory failure with hypoxia; E46 Unspecified protein-calorie malnutrition; Z68.1 Body mass index [BMI] 19.9 or less, adult; I10 Essential (primary) hypertension; N40.0 Benign prostatic hyperplasia without lower urinary tract symptoms; K21.9 Gastro-esophageal reflux disease without esophagitis; Z86.711 Personal history of pulmonary embolism; Z88.5 Allergy status to narcotic agent; J30.9 Allergic rhinitis, unspecified; Z87.891 Personal history of nicotine dependence
CPT/HCPCS: 36415; 71045; 80048; 80076; 82550; 82553; 82805; 83605; 83690; 83735; 83880; 84145; 84484; 85025; 85379; 85610; 85730; 87040; 87804; 93005; 94640; 94660; 96365; 96375; 99291; 99292; J0456; J0696; J1650; J2920; J7512; J7605

== ENCOUNTER 2018-07-12 09:25 | Emergency (ER) | payer MEDICARE ==
[2018-07-12] MEDS ORDERED: EPINEPHrine 1 MG/10 ML SYR IV ONE (09:26)
--- OUTSIDE RECORDS SUMMARY | 2018-07-12 09:28 | XMS REPORT ---
:1940 [facility] Address [address] [place] [address] Dr. Carlson [address] [place] [id number] Care Team Providers Name Role Phone Unavailable Unavailable Unavailable Problems This patient has no known problems. Allergies, Adverse Reactions, Alerts This patient has no known allergies or adverse reactions. Medications This patient has no known medications.
--- NOTE | 2018-07-12 09:49 | EDPHYS ---
Physician Documentation [facility] Name: Raphael Gilbert Age: 77 yrs Sex: Male : 1940 Arrival Date: 07/12/2018 Time: 09:31 Bed 4 Private MD: ED Physician Ralf Altman HPI: 07/12 09:32 This 77 yrs old Male presents to ER via Unassigned with complaints of CPR. kdr 09:32 Preceding the arrest, the patient collapsed, was found down by family. The arrest kdr occurred at home. Pre-hospital course: Bystanders at the scene did not perform CPR. EMS care prior to arrival: initiation of ACLS, peripheral IV, was successfully placed. oxygen, by BVM to assist ventilations. It is unknown whether or not the patient has had similar symptoms in the past. It is unknown whether or not the patient has recently seen a physician. Historical: - Allergies: 10:01 Dilaudid; hb - Home Meds: 10:01 clonazepam 0.5 mg Oral tab 1 tab BID PRN [Active]; ProAir HFA inhalation [Active]; hb - PMHx: 10:01 COPD; Hypertension; PE; hb - Social history:: Smoking status: unknown. - Ebola Screening: : Unable to complete screening because patient is unresponsive, patient does not understand, . ROS: 09:32 Constitutional: Unknown kdr 09:32 Unable to obtain ROS due to comatose state. Exam: 09:32 Constitutional: This is a well developed, well nourished patient cachetic patient who kdr is unresponsive, w/ oralpharyngeal airway in place. The patient is purple from the upper chest up. Head/Face: Normocephalic, atraumatic - purple Neck: Trachea midline, no thyromegaly or masses palpated, and no cervical lymphadenopathy. Supple, full range of motion without nuchal rigidity, or vertebral point tenderness. No Meningismus. Chest/axilla: Normal chest wall appearance and motion. Nontender with no deformity. No lesions are appreciated - sutopulse in place and appearing to function properly 09:32 Cardiovascular: Rate: Asystole, Rhythm: asystole, Pulses: not palpable, Heart sounds: None, Edema: is not appreciated, JVD: is not appreciated. 09:32 Respiratory: the patient does not display signs of respiratory distress, The patient has no spontaneous respirations , Breath sounds: Diminished but symmetrical after intubation. Vital Signs: 09:23 Pulse 0; sv 09:25 BP 100 / 85; Pulse 0; Resp 20 A; sv 09:27 Temp 97.9(R); sv 09:28 Pulse 0; sv 09:30 Pulse 0; sv 09:23 pulse check, asystole, CPR resumed by cardiac thumper. sv 09:28 pulse check, asystole, CPR resumed by cardiac thumper. sv 09:30 pulse check, asystole, Time of 0931. sv Procedures: :32 CPR: See CPR flow sheet. Initial patient assessment: unresponsive, Ambu ventilation, kdr The presenting cardiac rhythm is asystole. respirations assisted with BVM, Compressions: began prior to arrival. Meds given: Epinephrine X 3, CPR was stopped at 09:31. MDM: :32 Data reviewed: vital signs, nurses notes. Counseling: I had a detailed discussion with kdr the patient and/or guardian regarding: the historical points, exam findings, and any diagnostic results supporting the discharge/admit diagnosis. 09:48 Patient medically screened. kdr Administered Medications: 09:23 Drug: EPINEPHrine 0.1mg/mL 1:10,000 1 mg Route: IVP; Site: left antecubital; sv 09:28 Follow up: Response: No adverse reaction sv 09:28 Drug: EPINEPHrine 0.1mg/mL 1:10,000 1 mg Route: IVP; Site: left antecubital; sv 09:31 Follow up: Response: No adverse reaction sv Point of Care Testing: Blood Glucose: 09:25 Blood Glucose: 169 mg/dL; sv Ranges: Critical Glucose Levels:Adult <50 mg/dl or >400 mg/dl <40 mg/dl or >180 mg/dl Disposition: :32 Critical Care:. kdr 09:46 . kdr Disposition: Patient pronounced on 07/12/18 09:31 by Ralf Altman. Impression: Cardiopulmonary Arrest. - Released to Storage Receipt Poster. Critical care time excluding procedures: :32 Critical care time: Bedside Care: 30 minutes, Consultation: 5 minutes, Family kdr Intervention: 15 minutes. Total time: 50 minutes Signatures: Viviana Ku RN RN aj1 Chari Hernandes RN RN Ralf Altman MD MD kdr Danay Walsh RN RN Corrections: (The following items were deleted from the chart) 10:39 09:30 Ebola Screening: Unable to complete screening because sv sv 11:39 09:48 07/12/2018 09:48 Patient pronounced on 07/12/2018 at 09:31 by Ralf Altman. aj1 Impression: Cardiopulmonary Arrest. Released to Storage Receipt Poster. kdr
--- NOTE | 2018-07-12 09:49 | ER ---
Nurse's Notes [facility] Name: Raphael Gilbert Age: 77 yrs Sex: Male : 1940 Arrival Date: 07/12/2018 Time: 09:31 Bed 4 Private MD: Diagnosis: Cardiopulmonary Arrest Presentation: 07/12 09:21 Presenting complaint: EMS states: called out at 0855 by who stated that she went sv outside to smoke a cigarette, came back inside and found her spouse on the ground. Spouse unable to tell EMS how long she was outside smoking a cigarette. EMS arrived at 0857, pt was warm to touch, no pulse and CPR was started. 20G L AC started and 3 rounds of Epinephrine given. Pt presented to the ER with the cardiac thumper on. Care prior to arrival: CPR via thumper performed by EMS and is still in progress Medication(s) given: Epinephrine x 3 IV initiated. 20 GA, in the left antecubital area, Glucose check: 172 Oxygen administered. via AMBU bag. Compressions began at 08:57. 09:21 Method Of Arrival: EMS: [facility] sv 09:21 Acuity: MEGHAN 1 sv 09:21 Initial Sepsis Screen: Does the patient meet any 2 criteria? No. Patient's initial sv sepsis screen is negative. Does the patient have a suspected source of infection? No. Patient's initial sepsis screen is negative. 09:21 Onset of symptoms is unknown. sv 10:39 Risk Assessment: Do you want to hurt yourself or someone else? Unable to obtain. sv Historical: - Allergies: 10:01 Dilaudid; hb - Home Meds: 10:01 clonazepam 0.5 mg Oral tab 1 tab BID PRN [Active]; ProAir HFA inhalation [Active]; hb - PMHx: 10:01 COPD; Hypertension; PE; hb - Social history:: Smoking status: unknown. - Ebola Screening: : Unable to complete screening because patient is unresponsive, patient does not understand, . Screenin:34 Abuse screen: unknown. Nutritional screening: unknown. Tuberculosis screening: unknown. sv Assessment: 09:21 CPR assessment: unresponsive, no respiratory effort, Ambu ventilation, cyanotic. sv Cardiac rhythm is asystole. General: Appears distressed, malnourished, Pt has only his underwear on.. Behavior is unresponsive. Neuro: Level of Consciousness is unresponsive. Respiratory: Respiratory effort is no effort. Derm: Skin is pale, cyanotic. 10:14 Reassessment: [facility] contacted by myself and spoke with Elen. Pt is possibly a sv candidate for tissue donation. Case # [id number]. 10:16 Reassessment: Health Education Teacher Daniel speaking with the fiance, Chari Vargas, who is the sv person who found him on the ground. Vital Signs: 09:23 Pulse 0; sv 09:25 BP 100 / 85; Pulse 0; Resp 20 A; sv 09:27 Temp 97.9(R); sv 09:28 Pulse 0; sv 09:30 Pulse 0; sv 09:23 pulse check, asystole, CPR resumed by cardiac thumper. sv 09:28 pulse check, asystole, CPR resumed by cardiac thumper. sv 09:30 pulse check, asystole, Time of 0931. sv ED Course: 09:25 Patient has correct armband on for positive identification. Placed in gown. Assisted sv provider with intubation using 7.5 mm ETT via oral route. ET tube secured at 24cm at the lips. Set up intubation tray. Intubated by Ralf Altman MD Placement verified by CO2 detector w/ + color change, auscultating bilateral breath sounds. 09:30 Arm band placed on. sv 09:31 Patient arrived in ED. hb 09:32 Ralf Altman MD is Attending Physician. kdr 09:37 Chari Hernandes, RN is Primary Nurse. sv 09:44 Triage completed. sv 09:45 called [employer] dispatch to page the rigging loft mechanic wood tile installation helper. eb 09:46 Ralf Altman MD is Pronouncing Provider. kdr Administered Medications: 09:23 Drug: EPINEPHrine 0.1mg/mL 1:10,000 1 mg Route: IVP; Site: left antecubital; sv 09:28 Follow up: Response: No adverse reaction sv 09:28 Drug: EPINEPHrine 0.1mg/mL 1:10,000 1 mg Route: IVP; Site: left antecubital; sv 09:31 Follow up: Response: No adverse reaction sv Point of Care Testing: Blood Glucose: 09:25 Blood Glucose: 169 mg/dL; sv Ranges: Outcome: 09:31 Outcome Patient sv 09:31 Patient : Time of 09: Pronounced by Ralf Altman MD 09:31 Condition: 11:39 Patient left the ED. aj1 Signatures: Viviana Ku RN RN aj1 Chari Hernandes RN RN sv Ralf Altman MD MD [facility] Danay Walsh RN RN Sonja Alicia Corrections: (The following items were deleted from the chart) 10:39 09:30 Ebola Screening: Unable to complete screening because sv sv 10:40 09:21 Presenting complaint: EMS states: called out at 0855 by who stated that she sv went outside to smoke a cigarette, came back inside and found her spouse on the ground. EMS arrived at 0857, pt was warm to touch, no pulse and CPR was started. 20G L AC started and 3 rounds of Epinephrine given. Pt presented to the ER with the cardiac thumper on. sv 10:40 09:23 Pulse 0bpm; pulse check, asystole, CPR resumed.; sv sv
[2018-07-12 11:48] VITALS: BP 100/85
[2018-07-12 11:49] VITALS: TEMP 97.9
== END 2018-07-12 11:39 ==
LOC: ER 09:25
PROC: 5A02216 Assistance with Cardiac Output using Other Pump, Continuous (ICD-10-PCS; principal; 2018-07-12)
PROC: 0BH17EZ Insertion of Endotracheal Airway into Trachea, Via Natural or Artificial Opening (ICD-10-PCS; 2018-07-12)
DX: I46.9 Cardiac arrest, cause unspecified (principal); I10 Essential (primary) hypertension; J44.9 Chronic obstructive pulmonary disease, unspecified; Z88.8 Allergy status to other drugs, medicaments and biological substances
CPT/HCPCS: 31500 ×2; 96374; 92950 ×2; 99285; J0171